=== PATIENT | male | born 1930 | race Caucasian/White ===

== ENCOUNTER 2019-04-28 18:11 | Observation (INO) | payer OTHER, MEDICARE ==
--- NOTE | 2019-04-28 18:41 | ED ---
General Adult HPI - General Chief complaint: Dizziness Stated complaint: elevated BP, dizzy Time Seen by Provider: 04/28/19 18:15 Source: patient, RN notes reviewed, old records reviewed Mode of arrival: ambulatory Limitations: no limitations - History of Present Illness Initial comments: This is an 88-year-old male who presents emergency Department with a long- standing history of smoking. She comes in today stating over the last few days she's been very nauseated and has not vomited. Patient states she's been also a little dizzy and hypertensive. He went to see his primary medical care doctor and they sent him in here to be evaluated. Patient states he has no headache but occasionally he does get a sharp pain is in the last a few seconds and goes away. Patient states his vision is been a little bit blurry when his pressure is elevated. Patient denies any chest pain or difficulty breathing or shortness of breath. Patient denies any fever chills or cough per patient denies abdominal pain. Patient denies any diarrhea. Patient denies any hearing loss or ringing in ears. Patient denies any back pain. Patient denies any recent injury or trauma - Related Data Home Medications Medication Instructions Recorded Confirmed Aspirin [Adult Low Dose Aspirin EC] 81 mg PO DAILY 03/18/16 03/18/16 Lisinopril [Zestril] 10 mg PO BID 03/18/16 03/18/16 Multivitamin [Men's Multi-Vitamin] 1 tab PO DAILY 03/18/16 03/18/16 Omeprazole [PriLOSEC] 20 mg PO DAILY PRN 03/18/16 03/18/16 Tamsulosin [Flomax] 0.4 mg PO DAILY 03/18/16 03/18/16 Previous Rx's Medication Instructions Recorded Atorvastatin Calcium [Lipitor] 10 mg PO HS #30 tab 03/19/16 Nicotine 14Mg/24Hr Patch [Habitrol] 1 patch TRANSDERM DAILY #30 patch 03/19/16 amLODIPine [Norvasc] 5 mg PO DAILY #30 tab 03/19/16 Allergies Allergy/AdvReac Type Severity Reaction Status Date / Time sulfur dioxide Allergy Unknown Verified 04/28/19 18:15 Review of Systems ROS Statement: Those systems with pertinent positive or pertinent negative responses have been documented in the HPI. ROS Other: All systems not noted in ROS Statement are negative. Past Medical History Past Medical History: COPD, GERD/Reflux, Hypertension, Prostate Disorder Additional Past Medical History / Comment(s): BPH History of Any Multi-Drug Resistant Organisms: None Reported Past Surgical History: Heart Catheterization Additional Past Surgical History / Comment(s): R caratid endartectomy, bilateral cataracts removed, cardiac cath-normal. Past Anesthesia/Blood Transfusion Reactions: No Reported Reaction Past Psychological History: No Psychological Hx Reported Smoking Status: Current every day smoker Past Alcohol Use History: None Reported Past Drug Use History: None Reported - Past Family History Mother Family Medical History: Diabetes Mellitus Additional Family Medical History / Comment(s): Mother lived to be 86yrs old. Father Family Medical History: Respiratory Disorder Additional Family Medical History / Comment(s): Father worked in the [employer] and had black lung. He at the age of 78yrs. General Exam - General Exam Comments Initial Comments: GENERAL: Patient is well-developed and well-nourished. Patient is nontoxic and well-hydrated and is in mild distress. ENT: Neck is soft and supple. No significant lymphadenopathy is noted. Oropharynx is clear. Moist mucous membranes. Neck has full range of motion without eliciting any pain. EYES: The sclera were anicteric and conjunctiva were pink and moist. Extraocular movements were intact and pupils were equal round and reactive to light. Eyelids were unremarkable. PULMONARY: Unlabored respirations. Good breath sounds bilaterally. No audible rales rhonchi or wheezing was noted. CARDIOVASCULAR: There is a regular rate and rhythm without any murmurs gallops or rubs. ABDOMEN: Soft and nontender with normal bowel sounds. No palpable organomegaly was noted. There is no palpable pulsatile mass. SKIN: Skin is clear with no lesions or rashes and otherwise unremarkable. NEUROLOGIC: Patient is alert and oriented x3. Cranial nerves II through XII are grossly intact. Motor and sensory are also intact. Normal speech, volume and content. Symmetrical smile. Cerebellar testing finger to nose is normal bilaterally MUSCULOSKELETAL: Normal extremities with adequate strength and full range of motion. No lower extremity swelling or edema. No calf tenderness. LYMPHATICS: No significant lymphadenopathy is noted PSYCHIATRIC: Normal psychiatric evaluation. Limitations: no limitations Course Vital Signs 04/28/19 04/28/19 18:16 19:53 Temperature 97.6 F 97.7 F Pulse Rate 104 H 95 Respiratory 18 18 Rate Blood Pressure 204/83 158/81 O2 Sat by Pulse 97 98 Oximetry Medical Decision Making - Medical Decision Making EKG shows normal sinus rhythm at 100 bpm NE interval is on a 44 Joiner 100 QT interval 352 QTC is 454. Patient's EKG shows no ST segment elevation or depression or T wave abnormalities are noted. Patient continues to be nauseated. I gave the patient Zofran. I gave the patient one dose hydralazine about the blood pressure down. Patient states currently he has no chest pain. Patient states it has been intermittent but doesn't last long when it does come. Patient is not currently dizzy but when he gets up he states it's usually when it starts. [facility] agreed to [facility] the patient admitted the patient wrote admitting orders - Lab Data Result diagrams: 04/28/19 18:57 04/28/19 18:57 Lab Results 04/28/19 04/28/19 04/28/19 Range/Units 18:57 18:57 18:57 WBC 7.8 (3.8-10.6) k/uL RBC 4.30 (4.30-5.90) m/uL Hgb 12.9 L (13.0-17.5) gm/dL Hct 39.5 (39.0-53.0) % MCV 91.9 (80.0-100.0) fL MCH 30.1 (25.0-35.0) pg MCHC 32.8 (31.0-37.0) g/dL RDW 13.2 (11.5-15.5) % Plt Count 275 (150-450) k/uL Neutrophils % 53 % Lymphocytes % 25 % Monocytes % 6 % Eosinophils % 14 % Basophils % 1 % Neutrophils # 4.2 (1.3-7.7) k/uL Lymphocytes # 2.0 (1.0-4.8) k/uL Monocytes # 0.4 (0-1.0) k/uL Eosinophils # 1.1 H (0-0.7) k/uL Basophils # 0.0 (0-0.2) k/uL PT 10.0 (9.0-12.0) sec INR 0.9 (<1.2) APTT 25.6 (22.0-30.0) sec Sodium 142 (137-145) mmol/L Potassium 4.4 (3.5-5.1) mmol/L Chloride 107 (98-107) mmol/L Carbon Dioxide 23 (22-30) mmol/L Anion Gap 12 mmol/L BUN 29 H (9-20) mg/dL Creatinine 2.02 H (0.66-1.25) mg/dL Est GFR (CKD-EPI)AfAm 34 (>60 ml/min/1.73 sqM) Est GFR (CKD-EPI)NonAf 29 (>60 ml/min/1.73 sqM) Glucose 150 H (74-99) mg/dL Calcium 9.7 (8.4-10.2) mg/dL Magnesium 2.2 (1.6-2.3) mg/dL Total Bilirubin 0.4 (0.2-1.3) mg/dL AST 20 (17-59) U/L ALT 13 L (21-72) U/L Alkaline Phosphatase 72 (38-126) U/L Troponin I (0.000-0.034) ng/mL Total Protein 7.8 (6.3-8.2) g/dL Albumin 4.5 (3.5-5.0) g/dL 04/28/19 Range/Units 18:57 WBC (3.8-10.6) k/uL RBC (4.30-5.90) m/uL Hgb (13.0-17.5) gm/dL Hct (39.0-53.0) % MCV (80.0-100.0) fL MCH (25.0-35.0) pg MCHC (31.0-37.0) g/dL RDW (11.5-15.5) % Plt Count (150-450) k/uL Neutrophils % % Lymphocytes % % Monocytes % % Eosinophils % % Basophils % % Neutrophils # (1.3-7.7) k/uL Lymphocytes # (1.0-4.8) k/uL Monocytes # (0-1.0) k/uL Eosinophils # (0-0.7) k/uL Basophils # (0-0.2) k/uL PT (9.0-12.0) sec INR (<1.2) APTT (22.0-30.0) sec Sodium (137-145) mmol/L Potassium (3.5-5.1) mmol/L Chloride (98-107) mmol/L Carbon Dioxide (22-30) mmol/L Anion Gap mmol/L BUN (9-20) mg/dL Creatinine (0.66-1.25) mg/dL Est GFR (CKD-EPI)AfAm (>60 ml/min/1.73 sqM) Est GFR (CKD-EPI)NonAf (>60 ml/min/1.73 sqM) Glucose (74-99) mg/dL Calcium (8.4-10.2) mg/dL Magnesium (1.6-2.3) mg/dL Total Bilirubin (0.2-1.3) mg/dL AST (17-59) U/L ALT (21-72) U/L Alkaline Phosphatase (38-126) U/L Troponin I 0.044 H* (0.000-0.034) ng/mL Total Protein (6.3-8.2) g/dL Albumin (3.5-5.0) g/dL Disposition Clinical Impression: Hypertension, Dizziness, Nausea, Renal insufficiency, Elevated troponin Disposition: ADMITTED IP TO THIS HOSP Referrals: Sachin Groves DO [Primary Care Provider] - 1-2 days Time of Disposition: 20:18
[2019-04-28] MEDS ORDERED: SODIUM CHLORIDE 0.9% 500 ML 500 ML IV STA (18:48)
[2019-04-28] MEDS ORDERED: hydrALAZINE HCL 20 MG/ML 1 ML VIAL IVP STA (18:49)
[2019-04-28 19:05] LABS: Basophils % (A) 1 %; Eosinophils # (A) 1.1 k/uL (0-0.7); Eosinophils % (A) 14 %; HCT 39.5 % (39.0-53.0); HGB 12.9 gm/dL (13.0-17.5); Lymphocytes % (A) 25 %; MCH 30.1 pg (25.0-35.0); MCHC 32.8 g/dL (31.0-37.0); MCV 91.9 fL (80.0-100.0); Mean Platelet Volume 7.8; Monocytes # (A) 0.4 k/uL (0-1.0); Monocytes % (A) 6 %; Neutrophils # (A) 4.2 k/uL (1.3-7.7); Neutrophils % (A) 53 %; Platelet Count 275 k/uL (150-450); RDW 13.2 % (11.5-15.5); WBC 7.8 k/uL (3.8-10.6)
[2019-04-28 19:18] LABS: Albumin 4.5 g/dL (3.5-5.0); Calcium 9.7 mg/dL (8.4-10.2); Magnesium 2.2 mg/dL (1.6-2.3); Potassium 4.4 mmol/L (3.5-5.1); Total Bilirubin 0.4 mg/dL (0.2-1.3); Total Protein 7.8 g/dL (6.3-8.2)
[2019-04-28 19:25] LABS: INR 0.9 (<1.2); Partial Thromboplastin Time 25.6 sec (22.0-30.0)
--- NOTE | 2019-04-28 19:28 | CT ---
EXAMINATION TYPE: CT brain wo con DATE OF EXAM: 04/28/2019 COMPARISON: 03/18/2016 HISTORY: High blood pressure, headache. CT DLP: 1131.4 mGycm Automated exposure control for dose reduction was used. There is cerebral cortical atrophy. There is no mass effect nor midline shift. There is no sign of in tracranial hemorrhage. There is patchy hypodensity in the periventricular white matter. The calvarium is intact. IMPRESSION: Cerebral atrophy and chronic small vessel ischemia. No acute intracranial abnormality. No change.
--- NOTE | 2019-04-28 19:43 | XR ---
EXAMINATION TYPE: XR chest 2V DATE OF EXAM: 04/28/2019 COMPARISON: NONE TECHNIQUE: PA and lateral views submitted. HISTORY: Syncope and weakness, chest FINDINGS: The lungs are clear and there is no pneumothorax, pleural effusion, or focal pneumonia. Hypertrophic and degenerative change of the spine. Mild hyperinflation. IMPRESSION: 1. No definite acute process. Densities overlying the anterior margin the first ribs are likely relat ed to the anterior margins of the first ribs. This could be correlated with an apical lordotic view o f the short-term basis for confirmation..
[2019-04-28] MEDS ORDERED: ONDANSETRON 4 MG/2 ML VIAL IVP STA (20:14)
[2019-04-28] MEDS ORDERED: SODIUM CHLORIDE 0.9% 1,000 ML IV ONE (20:18)
[2019-04-28] MEDS ORDERED: ONDANSETRON 4 MG/2 ML VIAL IVP PRN (20:20)
[2019-04-28] MEDS ORDERED: ACETAMINOPHEN TAB 325 MG TAB PO STA (20:55)
[2019-04-29] MEDS ORDERED: INFLUENZA VACCINE (6 MOS+) 60 MCG/0.5 ML SYRINGE IM ONE (09:56)
--- NOTE | 2019-04-29 12:49 | P.HPIM ---
History of Present Illness Patient is a pleasant 88-year-old the mail came in with complaints of feeling dizzy found to have highly elevated blood pressure patient is also coming of blurry vision as well as chest pain across the chest mild chest pain and nonsp ecific abdominal pain patient is not clearly able to characterize the chest pains and nonradiating brief Pain mild denies any shortness of breath. Patient does smoke smokes about 20 seconds per day has some chronic cough with whitish sputum production not wheezing on exam. Patient was nauseous as well. Denied any vomiting. EKG sinus rhythm with LVH and some flattening of T waves in the inferolateral leads. Patient had minimal stable elevation of troponin of 0.054. Patient has creatinine of 2.02 and do not have his baseline creatinine.Is complaining of leg dizziness when he came in denied any flulike symptoms denied any fever Review of Systems REVIEW OF SYSTEMS: CONSTITUTIONAL: No fever, no malaise, no fatigue. HEENT: No recent visual problems or hearing problems. Denied any sore throat. CARDIOVASCULAR: No , orthopnea, PND, no palpitations, no syncope. PULMONARY: No shortness of breath, no cough, no hemoptysis. GASTROINTESTINAL: No diarrhea, NEUROLOGICAL: No headaches, no weakness, no numbness. HEMATOLOGICAL: Denies any bleeding or petechiae. GENITOURINARY: Denies any burning micturition, frequency, or urgency. MUSCULOSKELETAL/RHEUMATOLOGICAL: Denies any joint pain, swelling, or any muscle pain. ENDOCRINE: Denies any polyuria or polydipsia. The rest of the 14-point review of systems is negative. Past Medical History Past Medical History: COPD, CVA/TIA, GERD/Reflux, Hypertension, Prostate Disorder, Renal Disease Additional Past Medical History / Comment(s): TIAs, BPH, CKD, neuropathy bilateral hands History of Any Multi-Drug Resistant Organisms: None Reported Past Surgical History: Heart Catheterization, Hernia Repair Additional Past Surgical History / Comment(s): R caratid endartectomy, bilateral cataracts removed/lens implants, cardiac cath-normal, R inguinal hernia repair, colonoscopy. Past Anesthesia/Blood Transfusion Reactions: No Reported Reaction Smoking Status: Current every day smoker - Past Family History Mother Family Medical History: Diabetes Mellitus Additional Family Medical History / Comment(s): Mother lived to be 86yrs old. Father Family Medical History: Respiratory Disorder Additional Family Medical History / Comment(s): Father worked in the [employer] and had black lung. He at the age of 78yrs. Medications and Allergies Home Medications Medication Instructions Recorded Confirmed Type Tamsulosin [Flomax] 0.4 mg PO DAILY 03/18/16 04/28/19 History Budesonide/Formoterol Fumarate 2 puff INHALATION RT-BID 04/28/19 04/28/19 History [Symbicort 80-4.5 Mcg Inhaler] hydrALAZINE HCL [Apresoline] 50 mg PO TID 04/28/19 04/28/19 History Allergies Allergy/AdvReac Type Severity Reaction Status Date / Time sulfur dioxide Allergy Unknown Verified 04/28/19 20:27 Physical Exam Vitals: Vital Signs Temp Pulse Pulse Resp BP BP Pulse Ox 04/29/19 12:03 97.5 F L 96 18 190/95 96 04/29/19 10:59 98.5 F 94 16 144/77 98 04/29/19 08:00 98.0 F 94 16 160/80 98 04/29/19 04:00 84 18 136/76 96 04/28/19 22:00 90 18 164/75 97 04/28/19 20:42 98 18 154/76 96 04/28/19 19:53 97.7 F 95 18 158/81 98 04/28/19 18:16 97.6 F 104 H 18 204/83 97 Intake and Output 04/28/19 04/29/19 04/29/19 22:59 06:59 14:59 Other: Weight 63.503 kg 63.503 kg PHYSICAL EXAMINATION: GENERAL: The patient is alert and oriented x3, not in any acute distress. Well developed, well nourished. HEENT: Pupils are round and equally reacting to light. EOMI. No scleral icterus. No conjunctival pallor. Normocephalic, atraumatic. No pharyngeal erythema. No thyromegaly. CARDIOVASCULAR: S1 and S2 present. No murmurs, rubs, or gallops. PULMONARY: Chest is clear to auscultation, no wheezing or crackles. ABDOMEN: Soft, nontender, nondistended, normoactive bowel sounds. No palpable organomegaly. MUSCULOSKELETAL: No joint swelling or deformity. EXTREMITIES: No cyanosis, clubbing, or pedal edema. NEUROLOGICAL: Gross neurological examination did not reveal any focal deficits. SKIN: No rashes. Results CBC & Chem 7: 04/28/19 18:57 04/28/19 18:57 Labs: Abnormal Lab Results - Last 24 Hours (Table) 04/28/19 04/28/19 04/28/19 Range/Units 18:57 18:57 18:57 Hgb 12.9 L (13.0-17.5) gm/dL Eosinophils # 1.1 H (0-0.7) k/uL BUN 29 H (9-20) mg/dL Creatinine 2.02 H (0.66-1.25) mg/dL Glucose 150 H (74-99) mg/dL ALT 13 L (21-72) U/L Troponin I 0.044 H* (0.000-0.034) ng/mL 04/29/19 04/29/19 Range/Units 02:03 07:48 Hgb (13.0-17.5) gm/dL Eosinophils # (0-0.7) k/uL BUN (9-20) mg/dL Creatinine (0.66-1.25) mg/dL Glucose (74-99) mg/dL ALT (21-72) U/L Troponin I 0.054 H* 0.054 H* (0.000-0.034) ng/mL Thrombosis Risk Factor Assmnt - Choose All That Apply Any of the Below Risk Factors Present?: Yes Each Factor Represents 1 point: Abnormal pulmonary function (COPD) Other Risk Factors: Yes Each Risk Factor Represents 3 Points: Age 75 years or older Other congenital or acquired thrombophilia - If yes, enter type in comment: No Thrombosis Risk Factor Assessment Total Risk Factor Score: 4 Thrombosis Risk Factor Assessment Level: Moderate Risk Assessment and Plan Plan: -Elevated blood pressure, possibility of hypertensive emergency on admission presently patient is not in hypertensive emergency patient had blurry vision on admission which is consistent with possible papilledema from high blood pressure. Patient's hydralazine dose will be increased presently not in hypertensive emergency. Patient although also had some nonspecific chest pain atypical chest pain. Patient is a poor historian because of his hearing problems. His chest pain has some pleuritic competent because of which I ordered a d-dimer. If it's above 0.9 will obtain a CAT scan of the chest rule out pulmonary embolism -Abdominal pain and nausea may be related to gastroesophageal reflux disease patient was started on Protonix -Troponin elevation appears to be secondary to elevated blood pressure and chronic kidney disease. -Renal dysfunction appears to be mostly chronic kidney disease from BUN/creatinine ratio although do not have baseline creatinine, patient will be continued on IV fluids will recheck the kidney function tomorrow. 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 EKG is consistent with uncontrolled hypertension for long time. -COPD without any acute exacerbation patient will be resumed on his inhalers -Continue nicotine use: Counseling was provided
[2019-04-29] MEDS: NICOTINE 21MG/24HR PATCH TRANSDERM SCH (13:29)
[2019-04-29] MEDS: PANTOPRAZOLE 40 MG/10 ML VIAL IVP SCH (13:30)
--- NOTE | 2019-04-29 15:55 | NM ---
EXAMINATION TYPE: NM pul vent and perfuse DATE OF EXAM: 04/29/2019 COMPARISON: Chest x-ray 04/28/2019 HISTORY: Shortness of breath TECHNIQUE: Utilizing inhalation of 33.9 mCi Tc 99m DTPA aerosol and intravenous injection of 5.12 mC i of Tc 99m MAA, ventilation and perfusion images are acquired post injection in multiple projections . FINDINGS: There is heterogeneous uptake seen on ventilation imaging with clumping of radiotracer centrally. Thi s results in markedly limited exam. Findings are likely on the basis of COPD which is compatible with the chest x-ray. There are perfusion defects involving both lungs along the periphery which appear t o be matched. IMPRESSION: 1. Numerous matched defects suggestive of intermediate probability for pulmonary embolism.
[2019-04-29] MEDS: hydrALAZINE HCL 50 MG TAB PO SCH ×2 (18:19→20:13)
[2019-04-29] MEDS: SYMBICORT 80-4.5 MCG INHALER INHALATION SCH (19:45)
[2019-04-30 07:03] LABS: Calcium 9.1 mg/dL (8.4-10.2); Potassium 4.4 mmol/L (3.5-5.1)
[2019-04-30] MEDS: SYMBICORT 80-4.5 MCG INHALER INHALATION SCH (07:57)
[2019-04-30 08:07] VITALS: RESP 18
[2019-04-30] MEDS: NICOTINE 21MG/24HR PATCH TRANSDERM SCH (08:08)
[2019-04-30] MEDS: hydrALAZINE HCL 50 MG TAB PO SCH (08:08)
[2019-04-30] MEDS: PANTOPRAZOLE 40 MG/10 ML VIAL IVP SCH (08:08)
[2019-04-30] MEDS ORDERED: TAMSULOSIN 0.4 MG CAP.ER.24H PO SCH (09:00)
[2019-04-30 12:00] VITALS: BP 140/80; PULSE 94; TEMP 97.8
--- NOTE | 2019-04-30 12:14 | CONS ---
CONSULTATION PULMONARY/CRITICAL CARE CONSULTATION DATE OF CONSULTATION: This is an 88-year-old male who presents to the emergency department with complaints of longstanding tobacco use. He likely has some underlying COPD, although he has never seen a lung doctor. The patient apparently sees a family doctor out in [place], [place]. In the emergency room, he was complaining of a few days worth of nausea. No vomiting. He has also had lightheadedness and dizziness. In addition, his blood pressure was elevated. He denied any shortness of breath, but he did have a touch of chest pain. The pain was very nonspecific throughout his right and left chest. He thought it might relate to some acid reflux disease or heartburn. He really denies any shortness of breath per se. The pain was described as being sharp. Anyway, he came into the emergency room to be evaluated for that and was admitted to the hospital. He apparently had a V/Q scan which was intermediate probability with matched defects consistent with underlying COPD. We were consulted for the possibility of pulmonary embolism. Again, he is not currently having any chest pain. His chest pain was really nonspecific and he denied any shortness of breath as I mentioned. He continues to smoke cigarettes. He has been smoking for 71 years. He is originally from [place]. He now lives in [place], [place]. He is feeling well. His scans and x-rays and labs are all reviewed. MEDICATIONS: Home medications include aspirin, lisinopril, multivitamins, Prilosec, Flomax, Lipitor, nicotine patch, and amlodipine. ALLERGIES: SULFUR DIOXIDE. MEDICAL HISTORY: Medical history includes probable COPD, GERD, hypertension, BPH, hyperlipidemia, ongoing tobacco use with nicotine addiction, and some other minor medical problems. SURGICAL HISTORY: Surgical history includes heart catheterization, bilateral cataract surgery, right carotid endarterectomy, and a cardiac catheterization that was apparently normal. SOCIAL HISTORY: Positive for ongoing tobacco use. He may be smoking more than a pack a day for 71 years. Has no desire to quit. He denies any alcohol use or illicit drug use. FAMILY HISTORY: Consistent with a mother with diabetes mellitus and a father with black lung from working in the [employer]. REVIEW OF SYSTEMS: CONSTITUTIONAL: Negative. NEUROLOGIC: Dizziness. HEENT: Negative. CARDIOVASCULAR: Mild chest pain. PULMONARY: Negative. GI: Nausea without vomiting. : Negative. RHEUMATOLOGIC: Negative. IMMUNOLOGIC: Negative. ENDOCRINOLOGIC: Negative. DERMATOLOGIC: Negative. PHYSICAL EXAMINATION: VITAL SIGNS: Current vital signs include temperature 97.5, heart rate 89, respiratory rate 16, blood pressure 121/84, mean 96 and room-air saturation 95%. GENERAL: Appears in no acute distress. HEENT: Examination is grossly unremarkable. Mucous membranes are moist. No oral lesions. NECK: Supple. Full range of motion. No adenopathy. Neck veins are flat. CARDIOVASCULAR: Examination reveals regular rhythm and rate. S1, S2 normal. LUNGS: Are relatively clear. No wheezes or rhonchi. Breath sounds are diminished. ABDOMEN: Soft. Bowel sounds are heard. EXTREMITIES: Are intact. No cyanosis, clubbing, or edema. SKIN: Without rash. NEUROLOGIC: Examination is brief but nonfocal. LABS: Labs are reviewed. White count 7.8, hemoglobin 12.9, hematocrit 39.5, platelet count 275,000. PT, INR, PTT normal. D-dimer 0.98. Sodium 141, potassium 4.4, chloride 111, CO2 is 22. Anion gap is 8. BUN and creatinine were 23 and 2.05. His troponins were 0.044, 0.054 and 0.054. The rest of his labs look okay. The patient had a brain CT which showed no acute abnormality. Chest x-ray, which showed no acute process. An EKG which revealed normal sinus rhythm. A pulmonary perfusion study which showed numerous matched defect suggestive of intermediate probability for pulmonary embolism and likely related to chronic obstructive pulmonary disease. CURRENT MEDICATIONS: Current medications are reviewed. He is currently on Symbicort, Apresoline, nicotine patch, Zofran, Protonix, saline IV, and Flomax. ASSESSMENT: 1. No clear-cut evidence of pulmonary embolism based on the patient's clinical exam, scans and history. 2. Probable chronic obstructive pulmonary disease, from longstanding tobacco use of 71 years at more than 1 pack a day. 3. History of benign prostatic hypertrophy. 4. History of hypertension. 5. History of acid reflux disease. 6. History of hyperlipidemia. PLAN: I do not believe that the patient has had a pulmonary embolism. I do not believe any additional studies are warranted at this time. The patient feels well. Not having any shortness of breath. We encourage him to stop smoking. He likely will not. We will see as needed. I would be happy to follow up with him in the office if he would be willing to come there and have a pulmonary function test for further delineation and evaluation of chronic lung disease. Additional recommendations and suggestions are forthcoming. MMTYRAL / IJN: [id number] /
--- NOTE | 2019-04-30 15:53 | P.DS ---
Providers Date of admission: 04/28/19 20:18 Expected date of discharge: 04/30/19 Attending physician: Jerica Valadez Consults: 04/29/19 18:16 Consult Physician Routine Consulting Provider: Haim Burrows Consult Reason/Comments: elevated d dimer, matched defects on VQ scan Do you want consulting provider notified?: Yes, Notify in am Primary care physician: [facility] Course: 88-year-old the mail came in with complaints of feeling dizzy found to have highly elevated blood pressure patient is also coming of blurry vision as well as chest pain across the chest mild chest pain and nonspecific abdominal pain patient is not clearly able to characterize the chest pains and nonradiating brief Pain mild denies any shortness of breath. Patient does smoke smokes about 20 seconds per day has some chronic cough with whitish sputum production not wheezing on exam. Patient was nauseous as well. Denied any vomiting. EKG sinus rhythm with LVH Patient was admitted to the hospital and hydralazine was increased to 75 mg 3 times a day; patient's chest and was deemed atypical and felt more pleuritic 5H d-dimer was ordered which came back elevated at 0.9; CTA was recommended couldn't be done because of elevated renal function; pulmonary was consulted and they did not recommend any further treatment or evaluation; patient's blood pressure remained stable and he was discharged home with increased dose of hydralazine and follow-up with PCP Plan - Discharge Summary Discharge Rx Participant: No New Discharge Prescriptions: New hydrALAZINE HCL [Apresoline] 75 mg PO TID 30 Days #90 tab Continue Tamsulosin [Flomax] 0.4 mg PO DAILY Budesonide/Formoterol Fumarate [Symbicort 80-4.5 Mcg Inhaler] 2 puff INHALATION RT-BID Discontinued hydrALAZINE HCL [Apresoline] 50 mg PO TID Discharge Medication List Tamsulosin [Flomax] 0.4 mg PO DAILY 03/18/16 [History] Budesonide/Formoterol Fumarate [Symbicort 80-4.5 Mcg Inhaler] 2 puff INHALATION RT-BID 04/28/19 [History] hydrALAZINE HCL [Apresoline] 75 mg PO TID 30 Days #90 tab 04/30/19 [Rx] Follow up Appointment(s)/Referral(s): Haim Burrows DO [Doctor of Osteopathic Medicine] - 4 Weeks (Forms [employer].) Sachin Groves DO [Primary Care Provider] - 3 Days (Office closed, please call for a follow up appointment during normal business hours. ) Patient Instructions/Handouts: How to Stop Smoking (DC), COPD (Chronic Obstructive Pulmonary Disease) (DC) Discharge Disposition: HOME SELF-CARE
[2019-05-01] MEDS ORDERED: PANTOPRAZOLE 40 MG TABLET PO SCH (07:30)
== END 2019-04-30 16:35 | disposition home or self-care (01) ==
LOC: EC 18:11 → 3SCARD 20:18
PROVIDERS: ADMIT Hospitalist; ATTEND Hospitalist
DX: I12.9 Hypertensive chronic kidney disease with stage 1 through stage 4 chronic kidney disease, or unspecified chronic kidney disease (principal); N18.9 Chronic kidney disease, unspecified; R10.9 Unspecified abdominal pain; R11.0 Nausea; R42 Dizziness and giddiness; R07.89 Other chest pain; J44.9 Chronic obstructive pulmonary disease, unspecified; K21.9 Gastro-esophageal reflux disease without esophagitis; H91.90 Unspecified hearing loss, unspecified ear; N40.0 Benign prostatic hyperplasia without lower urinary tract symptoms; E78.5 Hyperlipidemia, unspecified; G31.9 Degenerative disease of nervous system, unspecified; I67.82 Cerebral ischemia; F17.210 Nicotine dependence, cigarettes, uncomplicated; Z79.82 Long term (current) use of aspirin; Z79.899 Other long term (current) drug therapy; Z79.51 Long term (current) use of inhaled steroids; Z88.2 Allergy status to sulfonamides; Z98.890 Other specified postprocedural states; Z98.42 Cataract extraction status, left eye; Z98.41 Cataract extraction status, right eye; Z83.3 Family history of diabetes mellitus; Z82.5 Family history of asthma and other chronic lower respiratory diseases
CPT/HCPCS: 96376; 96361 ×3; 96375 ×2; 96374; 99285; 36415; 94640 ×2; 93005; 85379; 80053; 80048; 83735; 84484 ×2; 85025; 85610; 85730; 71046; 70450; 78582; G0378 ×3; A9540; A9567; S4990 ×2; J0360; J2405; C9113 ×2

== ENCOUNTER → 2020-01-26 | Outpatient (CLI) | payer OTHER ==
--- NOTE | 2020-01-27 07:17 | US ---
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 Prior right carotid endarterectomy approximately 5 years ago; smoker x 71 years per patient; elevated Left PSV on prior US here. EXAM MEASUREMENTS: RIGHT: Peak Systolic Velocity (PSV) cm/sec ----- Right CCA: 72.9 ----- Right ICA: 75.6 ----- Right ECA: 98.6 ICA/CCA ratio: 1.0 RIGHT: End Diastole cm/sec ----- Right CCA: 11.0 ----- Right ICA: 22.3 ----- Right ECA: 0.0 LEFT: Peak Systolic Velocity (PSV) cm/sec ----- Left CCA: 84.1 ----- Left ICA: 160.9 ----- Left ECA: 130.2 ICA/CCA ratio: 1.9 LEFT: End Diastole cm/sec ----- Left CCA: 19.3 ----- Left ICA: 43.0 ----- Left ECA: 0.0 VERTEBRALS (direction of flow): Right Vertebral: Antegrade Left Vertebral: Antegrade Rhythm: Normal Irregular, mixed and calcified wall changes seen at bilateral carotid bifurcation with abnormally sudarshan vated PSV in Left ICA and Left ECA. Patient stated has palpable at superior right carotid endarterec sofía surgical incision site with US images here showing dilated bulb and wall plaque. IMPRESSION: Elevated left ICA PSV with the carotid endarterectomy changes. No hemodynamically significant stenosi s. Criteria for Assigning % of Stenosis / Diameter reduction (Estimation based on the indirect measurements of the internal carotid artery velocities (ICA PSV). 1. Normal (no stenosis)=ICA PSV < 125 cm/s: ratio < 2.0: ICA EDV<40 cm/s. 2. Less than 50% stenosis=ICA PSV < 125 cm/s: ratio < 2.0: ICA EDV<40 cm/s. 3. 50 to 69% stenosis=ICA PSV of 125 to 230 cm/s: ration 2.0 ? 4.0: ICA EDV 40-100 cm/s. 4. Greater than 70% stenosis to near occlusion= ICA PSV > 230 cm/s: ratio > 4.0: ICA EDV > 100 cm/s. 5. Near occlusion= ICA PSV velocities may be low or undetectable: variable ratio and ICA EDV. 6. Total occlusion=unable to detect flow.
== END | disposition home or self-care (01) ==
LOC: RADUSWWP 16:39
PROVIDERS: ATTEND Internal Medicine
DX: I65.29 Occlusion and stenosis of unspecified carotid artery (principal); Z98.890 Other specified postprocedural states
CPT/HCPCS: 93880

== ENCOUNTER 2020-07-12 11:42 | Inpatient (IN) | payer OTHER, MEDICARE ==
--- NOTE | 2020-07-12 12:23 | ED ---
General Adult HPI - General Chief complaint: Shortness of Breath Stated complaint: SOB Time Seen by Provider: 07/12/20 11:55 Source: patient, family, RN notes reviewed, old records reviewed Mode of arrival: wheelchair Limitations: no limitations - History of Present Illness Initial comments: This is an 89-year-old male who presents emergency department with past medical history significant for COPD. Patient states he does continue to smoke a little but not much. Patient states she also has high blood pressure. Patient states she's noted recently has been getting a little bit higher when he has had taken. Patient states he did take his blood pressure medicines today. Patient states over the last 2 months she had difficulty breathing with any exertion it's much worse he states he was standing for a period of time makes him very short of douglas ath. Patient denies any chest pain or palpitations. Patient states he went to see his primary medical care doctor they did an EKG and wanted him to be evaluated at the hospital. Patient denies any current abdominal pain or nausea vomiting diarrhea. Patient denies any recent fever chills or cough per patient denies any leg swelling or calf tenderness. Patient states he has some overall fatigue which seems to be getting worse over the last couple of months. - Related Data Home Medications Medication Instructions Recorded Confirmed Tamsulosin [Flomax] 0.4 mg PO DAILY 03/18/16 07/12/20 Omeprazole 20 mg PO DAILY PRN 07/12/20 07/12/20 Tiotropium 2.5 Mcg/Puff [Spiriva 1 puff INHALATION RT-BID 07/12/20 07/12/20 Respimat 2.5 Mcg] hydrALAZINE HCL 25 mg PO DAILY 07/12/20 07/12/20 hydrALAZINE HCL 25 mg PO DAILY PRN 07/12/20 07/12/20 Allergies Allergy/AdvReac Type Severity Reaction Status Date / Time sulfur dioxide Allergy Unknown Verified 07/12/20 14:24 Review of Systems ROS Statement: Those systems with pertinent positive or pertinent negative responses have been documented in the HPI. ROS Other: All systems not noted in ROS Statement are negative. Past Medical History Past Medical History: COPD, CVA/TIA, GERD/Reflux, Hypertension, Prostate Disorder, Renal Disease Additional Past Medical History / Comment(s): TIAs, BPH, CKD, neuropathy bilateral hands History of Any Multi-Drug Resistant Organisms: None Reported Past Surgical History: Heart Catheterization, Hernia Repair Additional Past Surgical History / Comment(s): R caratid endartectomy, bilateral cataracts removed/lens implants, cardiac cath-normal, R inguinal hernia repair, colonoscopy. Past Anesthesia/Blood Transfusion Reactions: No Reported Reaction Past Psychological History: No Psychological Hx Reported Smoking Status: Current every day smoker Past Alcohol Use History: None Reported Past Drug Use History: None Reported - Past Family History Mother Family Medical History: Diabetes Mellitus Additional Family Medical History / Comment(s): Mother lived to be 86yrs old. Father Family Medical History: Respiratory Disorder Additional Family Medical History / Comment(s): Father worked in the [employer] and had black lung. He at the age of 78yrs. General Exam - General Exam Comments Initial Comments: GENERAL: Patient is well-developed and well-nourished. Patient is nontoxic and well-hy drated and is in mild distress. ENT: Neck is soft and supple. No significant lymphadenopathy is noted. Oropharynx is clear. Moist mucous membranes. Neck has full range of motion without eliciting any pain. EYES: The sclera were anicteric and conjunctiva were pink and moist. Extraocular move ments were intact and pupils were equal round and reactive to light. Eyelids were unremarkable. PULMONARY: Unlabored respirations. Good breath sounds bilaterally. No audible rales rhonchi or wheezing was noted. CARDIOVASCULAR: Patient is tachycardic at about 100 beats a minute with an occasional extrasystole ABDOMEN: Soft and nontender with normal bowel sounds. No palpable organomegaly was noted. There is no palpable pulsatile mass. SKIN: Skin is clear with no lesions or rashes and otherwise unremarkable. NEUROLOGIC: Patient is alert and oriented x3. Cranial nerves II through XII are grossly intact. Motor and sensory are also intact. Normal speech, volume and content. Symmetrical smile. MUSCULOSKELETAL: Normal extremities with adequate strength and full range of motion. No lower extremity swelling or edema. No calf tenderness. LYMPHATICS: No significant lymphadenopathy is noted PSYCHIATRIC: Normal psychiatric evaluation. Limitations: no limitations Course Vital Signs 07/12/20 07/12/20 07/12/20 11:52 12:20 13:00 Temperature 98.2 F Pulse Rate 97 97 84 Respiratory 18 20 22 Rate Blood Pressure 165/105 188/101 157/98 O2 Sat by Pulse 97 100 100 Oximetry 07/12/20 07/12/20 07/12/20 13:06 14:00 14:24 Temperature Pulse Rate 88 90 80 Respiratory 19 16 Rate Blood Pressure 174/89 174/89 O2 Sat by Pulse 100 Oximetry 07/12/20 14:32 Temperature Pulse Rate 79 Respiratory 18 Rate Blood Pressure O2 Sat by Pulse Oximetry Medical Decision Making - Medical Decision Making EKG shows sinus tachycardia with occasional PVCs at 105 bpm ND interval is 136 QRS is 108 QT interval is 342 QTC is 452. Patient's EKG shows T-wave inversions in inferior leads II, III, and F aVF as well as in V6. Chest x-ray shows no acute abnormality. I did give the patient a breathing treatment. Patient's troponin was also elevated. BNP was 10,000. Patient has not followed up with a laborer [employer] or inspector publications. [facility] admitted the patient I consulted both cardiology and pulmonary. - Lab Data Result diagrams: 07/12/20 12:28 07/12/20 12:28 Lab Results 07/12/20 07/12/20 07/12/20 Range/Units 12:28 12:28 12:28 WBC 9.4 (3.8-10.6) k/uL RBC 3.92 L (4.30-5.90) m/uL Hgb 12.1 L (13.0-17.5) gm/dL Hct 36.1 L (39.0-53.0) % MCV 92.0 (80.0-100.0) fL MCH 30.8 (25.0-35.0) pg MCHC 33.5 (31.0-37.0) g/dL RDW 13.2 (11.5-15.5) % Plt Count 249 (150-450) k/uL MPV 8.2 Neutrophils % 47 % Lymphocytes % 23 % Monocytes % 8 % Eosinophils % 21 % Basophils % 1 % Neutrophils # 4.4 (1.3-7.7) k/uL Lymphocytes # 2.1 (1.0-4.8) k/uL Monocytes # 0.7 (0-1.0) k/uL Eosinophils # 2.0 H (0-0.7) k/uL Basophils # 0.1 (0-0.2) k/uL Manual Slide Review Performed PT 10.0 (9.0-12.0) sec INR 0.9 (<1.2) APTT 25.1 (22.0-30.0) sec D-Dimer 0.73 H (<0.60) mg/L FEU Sodium 139 (137-145) mmol/L Potassium 4.5 (3.5-5.1) mmol/L Chloride 105 (98-107) mmol/L Carbon Dioxide 25 (22-30) mmol/L Anion Gap 9 mmol/L BUN 29 H (9-20) mg/dL Creatinine 1.98 H (0.66-1.25) mg/dL Est GFR (CKD-EPI)AfAm 34 (>60 ml/min/1.73 sqM) Est GFR (CKD-EPI)NonAf 29 (>60 ml/min/1.73 sqM) Glucose 242 H (74-99) mg/dL Plasma Lactic Acid Fran (0.7-2.0) mmol/L Calcium 9.6 (8.4-10.2) mg/dL Magnesium 2.1 (1.6-2.3) mg/dL Total Bilirubin 0.4 (0.2-1.3) mg/dL AST 15 L (17-59) U/L ALT 12 (4-49) U/L Alkaline Phosphatase 76 (38-126) U/L Troponin I (0.000-0.034) ng/mL NT-Pro-B Natriuret Pep pg/mL Total Protein 7.0 (6.3-8.2) g/dL Albumin 3.9 (3.5-5.0) g/dL 07/12/20 07/12/20 07/12/20 Range/Units 12:28 12:28 12:28 WBC (3.8-10.6) k/uL RBC (4.30-5.90) m/uL Hgb (13.0-17.5) gm/dL Hct (39.0-53.0) % MCV (80.0-100.0) fL MCH (25.0-35.0) pg MCHC (31.0-37.0) g/dL RDW (11.5-15.5) % Plt Count (150-450) k/uL MPV Neutrophils % % Lymphocytes % % Monocytes % % Eosinophils % % Basophils % % Neutrophils # (1.3-7.7) k/uL Lymphocytes # (1.0-4.8) k/uL Monocytes # (0-1.0) k/uL Eosinophils # (0-0.7) k/uL Basophils # (0-0.2) k/uL Manual Slide Review PT (9.0-12.0) sec INR (<1.2) APTT (22.0-30.0) sec D-Dimer (<0.60) mg/L FEU Sodium (137-145) mmol/L Potassium (3.5-5.1) mmol/L Chloride (98-107) mmol/L Carbon Dioxide (22-30) mmol/L Anion Gap mmol/L BUN (9-20) mg/dL Creatinine (0.66-1.25) mg/dL Est GFR (CKD-EPI)AfAm (>60 ml/min/1.73 sqM) Est GFR (CKD-EPI)NonAf (>60 ml/min/1.73 sqM) Glucose (74-99) mg/dL Plasma Lactic Acid Fran 2.2 H* (0.7-2.0) mmol/L Calcium (8.4-10.2) mg/dL Magnesium (1.6-2.3) mg/dL Total Bilirubin (0.2-1.3) mg/dL AST (17-59) U/L ALT (4-49) U/L Alkaline Phosphatase (38-126) U/L Troponin I 0.085 H* (0.000-0.034) ng/mL NT-Pro-B Natriuret Pep 02947 pg/mL Total Protein (6.3-8.2) g/dL Albumin (3.5-5.0) g/dL Disposition Clinical Impression: COPD (chronic obstructive pulmonary disease), Elevated troponin, Acute electr ocardiogram changes Disposition: ADMITTED IP TO THIS HOSP Referrals: [facility],Clinic [Primary Care Provider] - 1-2 days Time of Disposition: 14:33
[2020-07-12 12:52] LABS: Basophils # (A) 0.1 k/uL (0-0.2); Basophils % (A) 1 %; HCT 36.1 % (39.0-53.0); HGB 12.1 gm/dL (13.0-17.5); Lymphocytes # (A) 2.1 k/uL (1.0-4.8); Lymphocytes % (A) 23 %; MCH 30.8 pg (25.0-35.0); MCHC 33.5 g/dL (31.0-37.0); Mean Platelet Volume 8.2; Monocytes # (A) 0.7 k/uL (0-1.0); Monocytes % (A) 8 %; Neutrophils # (A) 4.4 k/uL (1.3-7.7); Neutrophils % (A) 47 %; Platelet Count 249 k/uL (150-450); RBC 3.92 m/uL (4.30-5.90); RDW 13.2 % (11.5-15.5); WBC 9.4 k/uL (3.8-10.6)
--- NOTE | 2020-07-12 12:54 | XR ---
EXAMINATION TYPE: XR chest 2V DATE OF EXAM: 07/12/2020 COMPARISON: Chest x-ray 04/28/2019 HISTORY: Difficulty breathing TECHNIQUE: Frontal and lateral views of the chest are obtained. FINDINGS: There is no focal air space opacity, pleural effusion, or pneumothorax seen. The cardiac silhouette size is within normal limits. Aorta is dense. There are overlying leads and artifacts. Th e osseous structures are intact. There are coronary artery calcifications. IMPRESSION: No acute cardiopulmonary process.
[2020-07-12 13:06] LABS: Albumin 3.9 g/dL (3.5-5.0); Calcium 9.6 mg/dL (8.4-10.2); Magnesium 2.1 mg/dL (1.6-2.3); Potassium 4.5 mmol/L (3.5-5.1); Total Bilirubin 0.4 mg/dL (0.2-1.3)
[2020-07-12 13:07] LABS: Eosinophils % (A) 21 %; INR 0.9 (<1.2); Partial Thromboplastin Time 25.1 sec (22.0-30.0)
[2020-07-12 13:10] LABS: D-Dimer 0.73 mg/L FEU (<0.60)
[2020-07-12] MEDS ORDERED: IPRATROPIUM-ALBUTEROL 3 ML NEB INHALATION STA (14:07)
[2020-07-12] MEDS ORDERED: NITROGLYCERIN SL TABS 0.4 MG TAB SUBLINGUAL PRN (14:34)
[2020-07-12] MEDS ORDERED: methylPREDNISolone SOD SUCCI 125 MG/2 ML VIAL IV STA (14:37)
[2020-07-12] MEDS ORDERED: hydrALAZINE HCL 25 MG TAB PO STA (15:31)
--- NOTE | 2020-07-12 15:52 | P.CRDCN ---
History of Present Illness History of present illness: HISTORY OF PRESENTING ILLNESS This is a pleasant 89-year-old male past medical history significant for hypertension, TIA, chronic kidney disease, peripheral vascular disease status post right carotid endarterectomy, COPD and former nicotine dependence. He states he quit smoking 2 months ago. He does not follow in the office with a tag maker. We have been asked to see in consultation for EKG changes and troponin elevation. He was at the [facility] yesterday for routine visit and had an EKG performed. According to the patient he was told his EKG was abnormal and they recommended coming to the emergency department. However he decided not to come to the hospital and went home. When he told his daughter with a told them she brought him to the hospital today for evaluation. He is seen and examined sitting up in bed in no acute distress. He states he has noti arnaldo worsening shortness of breath with exertion over the previous 6 months. According to his daughter he becomes extremely fatigued with any activity. He also describes having episodes of frequent nausea and vomiting associated with pain and burning across his upper abdomen. He also describes some intermittent episodes of sharp pain in the left precordial region that happen mostly at rest. The patient states that he struggles with his blood pressure at home. He is supposed to be taking hydralazine 3 times a day but he states it drops his blood pressure so recently has been only taking it daily. DIAGNOSTICS EKG reveals sinus tachycardia with PVCs, incomplete left bundle branch block, T- wave inversions in the inferior lateral leads. This is a change from previous EKG obtained in 2019. Telemetry tracings indicate sinus mechanism with frequent PVCs. Chest xray negative for an acute cardiopulmonary process. Laboratory reviewed, WBC 9.4, hemoglobin 12.1, platelets 249, d-dimer 0.73, s odium 139, potassium 4.5, creatinine 1.98, lactic acid 2.2, magnesium 2.1, troponin 0.0 85, and T proBNP 10,900. Current cardiac medications include hydralazine 25 mg daily. Most recent echocardiogram obtained in 2016 reveals preserved LV systolic function with ejection fraction 55-60%. REVIEW OF SYSTEMS At the time of my exam: CONSTITUTIONAL: Denies fever or chills. CARDIOVASCULAR: Denies chest pain, shortness of breath, orthopnea, PND or palpitations. RESPIRATORY: Denies cough. GASTROINTESTINAL: Denies abdominal pain, diarrhea, constipation, nausea or vomiting. MUSCULOSKELETAL: Denies myalgias. NEUROLOGIC: Denies numbness, tingling, headacbe or weakness. ENDOCRINE: Denies fatigue, weight change, polydipsia or polyurina. GENITOURINARY: Denies burning, hematuria or urgency with micturation. HEMATOLOGIC: Denies history of anemia or bleeding. PHYSICAL EXAMINATION Blood pressure 184/110 heart rate 89 afebrile and maintaining oxygen saturation on nasal cannula. CONSTITUTIONAL: No apparent distress. HEENT: Head is normocephalic. Pupils are equal, round. Sclerae anicteric. Mucous membranes of the mouth are moist. No JVD. No carotid bruit. CHEST EXAMINATION: Significantly diminished bilaterally with expiratory wheezes. No rhonchi or rales. No chest wall tenderness is noted on palpation or with deep breathing. HEART EXAMINATION: Irregular rate and rhythm. S1, S2 heard. No murmurs, gallops or rub. ABDOMEN: Soft, nontender. Positive bowel sounds. EXTREMITIES: 1+ peripheral pulses, no lower extremity edema and no calf tenderness. NEUROLOGIC EXAMINATION: Patient is awake, alert and oriented x3. ASSESSMENT Dyspnea on exertion Hypertension, uncontrolled Chronic kidney disease Lactic acidosis Peripheral vascular disease status post right carotid endarterectomy COPD History of TIA Former nicotine dependence, quit 2 months ago PLAN Continue to obtain serial cardiac enzymes to rule out an acute event. Echocardiogram has been obtained and will be reviewed. Initiate hydralazine 25 mg twice a day, Lopressor 25 mg twice a day, atorvastatin 40 mg daily and aspirin 81 mg daily. Unclear if exertional dyspnea is related to COPD or heart condition at this point. Clinically he is euvolemic and not in heart failure. It is likely due to advanced COPD as he has almost no air exchange on exam. Lengthy discussion had with the patient and his family member at the bedside. Given his renal function and advanced age we recommend optimizing his medical therapy at this time. Further recommendations to follow based on clinical course. Thank you kindly for this consultation. Nurse Practitioner note has been reviewed, I agree with a documented findings and plan of care. Patient was seen and examined. Past Medical History Past Medical History: COPD, CVA/TIA, GERD/Reflux, Hypertension, Prostate Disorder, Renal Disease Additional Past Medical History / Comment(s): TIAs, BPH, CKD, neuropathy bilateral hands History of Any Multi-Drug Resistant Organisms: None Reported Past Surgical History: Heart Catheterization, Hernia Repair Additional Past Surgical History / Comment(s): R caratid endartectomy, bilateral cataracts removed/lens implants, cardiac cath-normal, R inguinal hernia repair, colonoscopy. Past Anesthesia/Blood Transfusion Reactions: No Reported Reaction Past Psychological History: No Psychological Hx Reported Smoking Status: Current every day smoker Past Alcohol Use History: None Reported Past Drug Use History: None Reported - Past Family History Mother Family Medical History: Diabetes Mellitus Additional Family Medical History / Comment(s): Mother lived to be 86yrs old. Father Family Medical History: Respiratory Disorder Additional Family Medical History / Comment(s): Father worked in the [employer] and had black lung. He at the age of 78yrs. Medications and Allergies Home Medications Medication Instructions Recorded Confirmed Type Tamsulosin [Flomax] 0.4 mg PO DAILY 03/18/16 07/12/20 History Metoprolol Tartrate [Lopressor] 25 mg PO DIRECTED 07/12/20 07/12/20 History Omeprazole 20 mg PO DAILY PRN 07/12/20 07/12/20 History Tiotropium 2.5 Mcg/Puff [Spiriva 1 puff INHALATION RT-BID 07/12/20 07/12/20 History Respimat 2.5 Mcg] hydrALAZINE HCL 25 mg PO DAILY 07/12/20 07/12/20 History hydrALAZINE HCL 25 mg PO DAILY PRN 07/12/20 07/12/20 History Allergies Allergy/AdvReac Type Severity Reaction Status Date / Time sulfur dioxide Allergy Unknown Verified 07/12/20 14:24 Physical Exam Vitals: Vital Signs Temp Pulse Resp BP Pulse Ox 07/12/20 15:26 97.9 F 89 16 184/110 99 07/12/20 14:32 79 18 07/12/20 14:24 80 16 07/12/20 14:00 90 19 174/89 100 07/12/20 13:06 88 174/89 07/12/20 13:00 84 22 157/98 100 07/12/20 12:20 97 20 188/101 100 07/12/20 11:52 98.2 F 97 18 165/105 97 Intake and Output 07/12/20 07/12/20 07/12/20 06:59 14:59 22:59 Other: Weight 70.307 kg Results 07/12/20 12:28 07/12/20 12:28 Cardiac Enzymes 07/12/20 07/12/20 Range/Units 12:28 12:28 AST 15 L (17-59) U/L Troponin I 0.085 H* (0.000-0.034) ng/mL Coagulation 07/12/20 Range/Units 12: PT 10.0 (9.0-12.0) sec APTT 25.1 (22.0-30.0) sec CBC 07/12/20 Range/Units 12:28 WBC 9.4 (3.8-10.6) k/uL RBC 3.92 L (4.30-5.90) m/uL Hgb 12.1 L (13.0-17.5) gm/dL Hct 36.1 L (39.0-53.0) % Plt Count 249 (150-450) k/uL Comprehensive Metabolic Panel 07/12/20 Range/Units 12:28 Sodium 139 (137-145) mmol/L Potassium 4.5 (3.5-5.1) mmol/L Chloride 105 (98-107) mmol/L Carbon Dioxide 25 (22-30) mmol/L BUN 29 H (9-20) mg/dL Creatinine 1.98 H (0.66-1.25) mg/dL Glucose 242 H (74-99) mg/dL Calcium 9.6 (8.4-10.2) mg/dL AST 15 L (17-59) U/L ALT 12 (4-49) U/L Alkaline Phosphatase 76 (38-126) U/L Total Protein 7.0 (6.3-8.2) g/dL Albumin 3.9 (3.5-5.0) g/dL Current Medications Generic Name Dose Route Start Last Admin Trade Name Freq PRN Reason Stop Dose Admin Albuterol/Ipratropium 3 ml 07/12/20 14:36 Ipratropium-Albuterol 3 Ml Neb INHALATION RT-QID PRN Shortness Of Breath Or Wheezing Aspirin 325 mg 07/13/20 09:00 Aspirin 325 Mg Tab PO DAILY [facility] Methylprednisolone Sodium Succinate 60 mg 07/12/20 18:00 Methylprednisolone Sod Succi 125 Mg/2 Ml Vial IV Q6HR [facility] Nitroglycerin 0.4 mg 07/12/20 14:34 Nitroglycerin Sl Tabs 0.4 Mg Tab SUBLINGUAL Q5M PRN Chest Pain Nitroglycerin 1 inch 07/12/20 18:00 Nitroglycerin Oint 1 Inch/Gm Packet TOPICAL Q6HR MOLLY Intake and Output 07/12/20 07/12/20 07/12/20 06:59 14:59 22:59 Other: Weight 70.307 kg Patient Weight 07/13/20 06:59 Weight 70.307 kg 07/12/20 12:28 07/12/20 12:28
--- NOTE | 2020-07-12 17:32 | ECHOF ---
Referral Reason:Difficulty breathing MEASUREMENTS -------- HEIGHT: 180.3 cm WEIGHT: 70.3 kg BP: IVSd: 1.2 cm (0.6 - 1.1) LVIDd: 5.3 cm (3.9 - 5.3) LVPWd: 1.5 cm (0.6 - 1.1) IVSs: 1.5 cm LVIDs: 4.9 cm LVPWs: 1.6 cm LAESV Index (A-L): 23.85 ml/m Ao Diam: 3.4 cm (2.0 - 3.7) AV Cusp: 1.9 cm (1.5 - 2.6) LA Diam: 2.6 cm (2.7 - 3.8) MV EXCURSION: 13.883 mm (> 18.000) MV EF SLOPE: 104 mm/s (70 - 150) EPSS: 1.7 cm MV E Chris: 0.77 m/s MV DecT: 177 ms MV A Chris: 1.18 m/s MV E/A Ratio: 0.65 RAP: 5.00 mmHg RVSP: 32.12 mmHg FINDINGS -------- This was a technically difficult study with suboptimal views. The left ventricular size is normal. There is moderate concentric left ventricular hypertrophy. Ant erior wall ands septum hypokinetic . Overall left ventricular systolic function is severely impaire d with, an EF between 20 - 25 %. Normal LAP. Grade 1 Diastolic Dysfunction. The right ventricle is normal in size. The left atrial size is normal. Normal LA size by volume 22+/-6 ml/m2. The right atrial size is normal. xx ml of Lumason was utilized for enhancement of images. The aortic valve is trileaflet and appears structurally normal. The mitral valve is normal. [id number] mitral regurgitation is present. The tricuspid valve appears structurally normal. Mild tricuspid regurgitation present. Right vent ricular systolic pressure is normal at < 35 mmHg. There is no pulmonic regurgitation present. The aortic root size is normal. IVC Not well visulized. There is no pericardial effusion. CONCLUSIONS -------- 1. The left ventricular size is normal. 2. There is moderate concentric left ventricular hypertrophy. 3. There is anterior wall hypokinesis. 4. Overall left ventricular systolic function is severely impaired with, an EF between 20 - 25 %. 5. Normal LAP. Grade 1 Diastolic Dysfunction. 6. [id number] mitral regurgitation is present. 7. Mild tricuspid regurgitation present. 8. There is no pericardial effusion. PATIENT'S LIBRARIAN: Elyse Underwood RDCS
[2020-07-12] MEDS: NITROGLYCERIN OINT 1 INCH/GM PACKET TOPICAL SCH ×2 (18:20→22:59)
[2020-07-12] MEDS: methylPREDNISolone SOD SUCCI 125 MG/2 ML VIAL IV SCH ×2 (18:20→22:59)
[2020-07-12] MEDS: hydrALAZINE HCL 25 MG TAB PO SCH (19:34)
[2020-07-12] MEDS: METOPROLOL TARTRATE 25 MG TAB PO SCH (19:34)
[2020-07-12] MEDS: ATORVASTATIN 40 MG TAB PO SCH (19:34)
[2020-07-13 03:28] LABS: Cholesterol 212 mg/dL (<200); HDL Cholesterol 42 mg/dL (40-60); LDL Cholesterol,Calculated 143 mg/dL (0-99); Triglycerides 133 mg/dL (<150)
[2020-07-13] MEDS: methylPREDNISolone SOD SUCCI 125 MG/2 ML VIAL IV SCH ×2 (06:26→12:58)
[2020-07-13] MEDS: NITROGLYCERIN OINT 1 INCH/GM PACKET TOPICAL SCH (06:26)
--- NOTE | 2020-07-13 08:51 | P.HPIM ---
History of Present Illness This is a pleasant 89 years old male with past medical history of transient ischemic attack, COPD, gastroesophageal reflux disease, hypertension, benign prostatic hypertrophy, chronic kidney disease. He follows up in the [place] clinic Patient [facility] and he did EKG for him and he does not know why and they sent him to the hospital Patient noticed to be tachypneic while at rest however patient states this is not new for him and his been have been dyspneic for the last 2 years getting worse over the last year. Last May he decided to quit, usually he smokes 1- 1.5 pack per day, thinking that might help him with his breathing. He hasn't some cough with white yellow creamy phlegm that is been going on for a while and months Also is complaining of from chronic dizziness for about a year especially when he gets up he has to wait before he takes any step. No vertigo just nonspecific dizziness and no syncope Patient denies chest pain. No abdominal pain or diarrhea. Sometimes he feels dysuria but currently is not and no change in frequency but he thinks his urine is stinks He denies alcohol or illicit drugs. He has hearing difficulty and urinate but he denies ear pain or discharge Vitas looks stable and currently saturating 97 ambulatory oxygen via nasal cannula. This troponin is chronically elevated at 0.04 and 0.05, currently 0.07-0.09 CBC, BMP and liver enzymes are unremarkable. Creatinine is chronically elevated 1.6-2.0, currently is 1.9 EKG showing sinus tachycardia at 105 with PVCs and incomplete left branch block. QTC is 452 Echocardiogram: Ejection fraction is 20-25%, compared to 55-60% in 2016 Review of Systems CONSTITUTIONAL: No fever, no malaise, no fatigue. HEENT: No recent visual problems or hearing problems. Denied any sore throat. CARDIOVASCULAR: No orthopnea, PND, no palpitations, no syncope. PULMONARY: No chest wall tenderness no hemoptysis. GASTROINTESTINAL: No diarrhea, no nausea, no vomiting, no abdominal pain. Normoactive bowel sounds. NEUROLOGICAL: No headaches, no weakness, no numbness. HEMATOLOGICAL: Denies any bleeding or petechiae. GENITOURINARY: Denies any burning micturition, frequency, or urgency. MUSCULOSKELETAL/RHEUMATOLOGICAL: Denies any joint pain, swelling, or any muscle pain. ENDOCRINE: Denies any polyuria or polydipsia. Past Medical History Past Medical History: COPD, CVA/TIA, GERD/Reflux, Hypertension, Prostate Disorder, Renal Disease Additional Past Medical History / Comment(s): TIAs, BPH, CKD, neuropathy bilateral hands History of Any Multi-Drug Resistant Organisms: None Reported Past Surgical History: Heart Catheterization, Hernia Repair Additional Past Surgical History / Comment(s): R caratid endartectomy, bilateral cataracts removed/lens implants, cardiac cath-normal, R inguinal hernia repair, colonoscopy. Past Anesthesia/Blood Transfusion Reactions: No Reported Reaction Past Psychological History: No Psychological Hx Reported Smoking Status: Current every day smoker Past Alcohol Use History: None Reported Past Drug Use History: None Reported - Past Family History Mother Family Medical History: Diabetes Mellitus Additional Family Medical History / Comment(s): Mother lived to be 86yrs old. Father Family Medical History: Respiratory Disorder Additional Family Medical History / Comment(s): Father worked in the [employer] and had black lung. He at the age of 78yrs. Medications and Allergies Home Medications Medication Instructions Recorded Confirmed Type Tamsulosin [Flomax] 0.4 mg PO DAILY 03/18/16 07/12/20 History Metoprolol Tartrate [Lopressor] 25 mg PO DIRECTED 07/12/20 07/12/20 History Omeprazole 20 mg PO DAILY PRN 07/12/20 07/12/20 History Tiotropium 2.5 Mcg/Puff [Spiriva 1 puff INHALATION RT-BID 07/12/20 07/12/20 History Respimat 2.5 Mcg] hydrALAZINE HCL 25 mg PO DAILY 07/12/20 07/12/20 History hydrALAZINE HCL 25 mg PO DAILY PRN 07/12/20 07/12/20 History Allergies Allergy/AdvReac Type Severity Reaction Status Date / Time sulfur dioxide Allergy Unknown Verified 07/12/20 14:24 Physical Exam Vitals: Vital Signs Temp Pulse Pulse Resp BP BP Pulse Ox 07/13/20 04:00 98.0 F 77 16 150/62 97 07/13/20 02:00 88 16 07/13/20 00:00 97.9 F 88 16 144/70 96 07/12/20 20:00 107 H 18 07/12/20 19:36 98.0 F 107 H 18 159/76 94 L 07/12/20 16:00 97.9 F 94 16 176/77 99 07/12/20 15:58 97.9 F 07/12/20 15:26 97.9 F 89 16 184/110 99 07/12/20 14:32 79 18 07/12/20 14:24 80 16 07/12/20 14:00 90 19 174/89 100 07/12/20 13:06 88 174/89 07/12/20 13:00 84 22 157/98 100 07/12/20 12:20 97 20 188/101 100 07/12/20 11:52 98.2 F 97 18 165/105 97 Intake and Output 07/12/20 07/13/20 07/13/20 22:59 06:59 14:59 Intake Total 240 Balance 240 Intake: Oral 240 Other: Voiding Method Urinal Urinal # Voids 1 Weight 70.307 kg 71.4 kg GENERAL: The patient is alert and oriented x3, not in any acute distress. Well developed, well nourished. HEENT: Pupils are round and equally reacting to light. EOMI. No scleral icterus. No conjunctival pallor. Normocephalic, atraumatic. No pharyngeal erythema. No thyromegaly. CARDIOVASCULAR: S1 and S2 present. No murmurs, rubs, or gallops. -PULMONARY: Chest is clear to auscultation, no wheezing or crackles. Tachypneic ABDOMEN: Soft, nontender, nondistended, normoactive bowel sounds. No palpable organomegaly. MUSCULOSKELETAL: No joint swelling or deformity. EXTREMITIES: No cyanosis, clubbing, or pedal edema. NEUROLOGICAL: Gross neurological examination did not reveal any focal deficits. SKIN: No rashes. no petechiae. Results CBC & Chem 7: 07/12/20 12:28 07/12/20 12:28 Labs: Abnormal Lab Results - Last 24 Hours (Table) 07/12/20 07/12/20 07/12/20 Range/Units 12:28 12:28 12:28 RBC 3.92 L (4.30-5.90) m/uL Hgb 12.1 L (13.0-17.5) gm/dL Hct 36.1 L (39.0-53.0) % Eosinophils # 2.0 H (0-0.7) k/uL D-Dimer 0.73 H (<0.60) mg/L FEU BUN 29 H (9-20) mg/dL Creatinine 1.98 H (0.66-1.25) mg/dL Glucose 242 H (74-99) mg/dL Plasma Lactic Acid Fran (0.7-2.0) mmol/L AST 15 L (17-59) U/L Troponin I (0.000-0.034) ng/mL Cholesterol (<200) mg/dL LDL Cholesterol, Calc (0-99) mg/dL 07/12/20 07/12/20 07/12/20 Range/Units 12:28 12:28 12:28 RBC (4.30-5.90) m/uL Hgb (13.0-17.5) gm/dL Hct (39.0-53.0) % Eosinophils # (0-0.7) k/uL D-Dimer (<0.60) mg/L FEU BUN (9-20) mg/dL Creatinine (0.66-1.25) mg/dL Glucose (74-99) mg/dL Plasma Lactic Acid Fran 2.2 H* (0.7-2.0) mmol/L AST (17-59) U/L Troponin I 0.085 H* (0.000-0.034) ng/mL Cholesterol 212 H (<200) mg/dL LDL Cholesterol, Calc 143 H (0-99) mg/dL 07/12/20 07/12/20 Range/Units 15:15 18:28 RBC (4.30-5.90) m/uL Hgb (13.0-17.5) gm/dL Hct (39.0-53.0) % Eosinophils # (0-0.7) k/uL D-Dimer (<0.60) mg/L FEU BUN (9-20) mg/dL Creatinine (0.66-1.25) mg/dL Glucose (74-99) mg/dL Plasma Lactic Acid Fran (0.7-2.0) mmol/L AST (17-59) U/L Troponin I 0.090 H* 0.077 H* (0.000-0.034) ng/mL Cholesterol (<200) mg/dL LDL Cholesterol, Calc (0-99) mg/dL Thrombosis Risk Factor Assmnt - Choose All That Apply Any of the Below Risk Factors Present?: Yes Each Factor Represents 1 point: Abnormal pulmonary function (COPD) Other Risk Factors: Yes Each Risk Factor Represents 3 Points: Age 75 years or older Other congenital or acquired thrombophilia - If yes, enter type in comment: No Thrombosis Risk Factor Assessment Total Risk Factor Score: 4 Thrombosis Risk Factor Assessment Level: Moderate Risk Assessment and Plan Assessment: Ongoing Chronic dyspnea for 2 years worsening the last year, with with coughing and yellowish phlegm . It might have some acute component related to his heart or lung disease Suspect acute on chronic systolic CHF Possible elements of coronary artery disease given his risk factors, entry level drafter recommended medical therapy COPD for some acute exacerbation is suspected Nicotine dependence Hypertension Chronic kidney disease, stage 3-4 History of TIA History of GERD Benign prostatic hypertrophy Plan: This is a pleasant 89 years old male who presents with ongoing dyspnea on coughing with dizziness. Cardiology evaluated the patient and recommended medical therapy with no intervention at the adjusted his hydralazine and Lopressor for better control of his high blood pressure. Also will continue with aspirin and Lipitor. Pulmonary evaluation is requested from emergency room. Also output the patient small dose of IV Lasix at 20 mg iv daily we will check orthostatic vitals. Send urine analysis Labs and medication were reviewed.. Continue same treatment. Continue with symptomatic treatment. Resume home medication. Monitor lytes and vitals. DVT and GI prophylaxis. Further recommendationsas per clinical course of the patient DVT prophylaxis: Subcutaneous heparin GI Prophylaxis: Pepcid PT/OT: Pending Prognosis is guarded
[2020-07-13] MEDS ORDERED: FUROSEMIDE 10 MG/ML 2 ML VIAL IV SCH (09:00)
[2020-07-13] MEDS ORDERED: ASPIRIN 325 MG TAB PO SCH (09:00)
[2020-07-13] MEDS ORDERED: FAMOTIDINE 20 MG/2 ML VIAL IV SCH (09:00)
[2020-07-13] MEDS: ASPIRIN 81 MG PO SCH (09:52)
[2020-07-13] MEDS: METOPROLOL TARTRATE 25 MG TAB PO SCH ×2 (09:52→20:16)
[2020-07-13] MEDS: HEPARIN SODIUM,PORCINE 5,000 UNIT/ML 1 ML VIAL SQ SCH ×2 (09:52→20:16)
[2020-07-13] MEDS: TAMSULOSIN 0.4 MG CAP.ER.24H PO SCH (09:52)
[2020-07-13] MEDS: hydrALAZINE HCL 25 MG TAB PO SCH ×2 (09:52→20:16)
[2020-07-13] MEDS: ISOSORBIDE MONONITRATE ER 30 MG TAB.ER.24H PO SCH (09:54)
--- NOTE | 2020-07-13 10:00 | P.PN ---
Subjective HISTORY OF PRESENTING ILLNESS This is a pleasant 89-year-old male past medical history significant for hypertension, TIA, chronic kidney disease, peripheral vascular disease status post right carotid endarterectomy, COPD and former nicotine dependence. He states he quit smoking 2 months ago. 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 Echocardiogram obtained revealed severely impaired LV systolic function with ejection fraction 20-25%, anterior hypokinesia noted, mild to moderate mitral regurgitation. Blood pressure 150/62 heart rate 77 afebrile maintaining oxygen saturation on nasal cannula. Troponin trend 0.085, 0.090 and 0.077. Lipid panel, LDL 143, HDL 42 and total cholesterol 212. Currently maintained on Lopressor 25 mg twice a day, hydralazine 25 mg twice a day, atorvastatin 80 mg daily and aspirin 81 mg daily. He is also on lasix 20 mg IV daily per the primary care team. PHYSICAL EXAMINATION CONSTITUTIONAL: No apparent distress. HEENT: Head is normocephalic. Pupils are equal, round. Sclerae anicteric. Mucous membranes of the mouth are moist. No JVD. No carotid bruit. CHEST EXAMINATION: Significantly diminished bilaterally with expiratory wheezes. No rhonchi or rales. No chest wall tenderness is noted on palpation or with deep breathing. HEART EXAMINATION: Irregular rate and rhythm. S1, S2 heard. No murmurs, gallops or rub. EXTREMITIES: 1+ peripheral pulses, no lower extremity edema and no calf tenderness. ASSESSMENT Dyspnea on exertion Troponin leak, not indicative of primary myocardial injury. Flat with no significant rise/fall pattern. Likely due to renal function. Acute systolic heart failure Cardiomyopathy, unknown if ischemic or non-ischemic Hypertension, uncontrolled Chronic kidney disease Lactic acidosis Peripheral vascular disease status post right carotid endarterectomy COPD History of TIA Former nicotine dependence, quit 2 months ago PLAN Increase lasix to 20 mg IV BID. Document accurate intake and output along with daily weights. Follow renal function and electrolytes in the morning. Add imdur 30 mg daily to his regimen. Further recommendations to follow based on clinical course. Nurse Practitioner note has been reviewed, I agree with a documented findings and plan of care. Patient was seen and examined. Objective - Vital Signs Vital signs: Vital Signs Temp 98.0 F 07/13/20 04:00 Pulse 77 07/13/20 04:00 Resp 16 07/13/20 04:00 BP 150/62 07/13/20 04:00 Pulse Ox 97 07/13/20 04:00 Intake & Output 07/12/20 07/13/20 07/13/20 18:59 06:59 18:59 Intake Total 240 480 Balance 240 480 Weight 70.307 kg 71.4 kg Intake: Oral 240 480 Other: Voiding Method Urinal # Voids 1 - Labs CBC & Chem 7: 07/12/20 12:28 07/12/20 12:28 Labs: Abnormal Lab Results - Last 24 Hours (Table) 07/12/20 07/12/20 07/12/20 Range/Units 12:28 12: 12:28 RBC 3.92 L (4.30-5.90) m/uL Hgb 12.1 L (13.0-17.5) gm/dL Hct 36.1 L (39.0-53.0) % Eosinophils # 2.0 H (0-0.7) k/uL D-Dimer 0.73 H (<0.60) mg/L FEU BUN 29 H (9-20) mg/dL Creatinine 1.98 H (0.66-1.25) mg/dL Glucose 242 H (74-99) mg/dL Plasma Lactic Acid Fran (0.7-2.0) mmol/L AST 15 L (17-59) U/L Troponin I (0.000-0.034) ng/mL Cholesterol (<200) mg/dL LDL Cholesterol, Calc (0-99) mg/dL 07/12/20 07/12/20 07/12/20 Range/Units 12: 12: 12:28 RBC (4.30-5.90) m/uL Hgb (13.0-17.5) gm/dL Hct (39.0-53.0) % Eosinophils # (0-0.7) k/uL D-Dimer (<0.60) mg/L FEU BUN (9-20) mg/dL Creatinine (0.66-1.25) mg/dL Glucose (74-99) mg/dL Plasma Lactic Acid Fran 2.2 H* (0.7-2.0) mmol/L AST (17-59) U/L Troponin I 0.085 H* (0.000-0.034) ng/mL Cholesterol 212 H (<200) mg/dL LDL Cholesterol, Calc 143 H (0-99) mg/dL 07/12/20 07/12/20 Range/Units 15:15 18:28 RBC (4.30-5.90) m/uL Hgb (13.0-17.5) gm/dL Hct (39.0-53.0) % Eosinophils # (0-0.7) k/uL D-Dimer (<0.60) mg/L FEU BUN (9-20) mg/dL Creatinine (0.66-1.25) mg/dL Glucose (74-99) mg/dL Plasma Lactic Acid Fran (0.7-2.0) mmol/L AST (17-59) U/L Troponin I 0.090 H* 0.077 H* (0.000-0.034) ng/mL Cholesterol (<200) mg/dL LDL Cholesterol, Calc (0-99) mg/dL
[2020-07-13 11:02] LABS: Calcium 9.5 mg/dL (8.4-10.2)
[2020-07-13 11:21] LABS: Potassium 5.4 mmol/L (3.5-5.1)
[2020-07-13] MEDS: IPRATROPIUM-ALBUTEROL 3 ML NEB INHALATION PRN ×3 (11:35→21:30)
[2020-07-13] MEDS: IPRATROPIUM 0.5 MG/2.5 ML NEBU INHALATION SCH ×3 (11:36→21:31)
--- NOTE | 2020-07-13 13:22 | P.CNPUL ---
History of Present Illness Consult date: 07/13/20 Requesting physician: Samra Araiza Reason for consult: dyspnea, COPD Chief complaint: shortness of breath and chest pain. History of present illness: 89-year-old male who presents to the emergency department on 07/12/2020, complaining of shortness of breath. The patient has a history of underlying COPD. He isn't smoking since the age of 18. At 73 years, 1-2 packs a day. He also apparently carries with him a diagnosis of hypertension, and apparently also was complaining of elevated blood pressure when the patient came into the emergency department. The patient apparently had seen his medical doctor and/or his editor publications earlier in the day. He was told to come to the hospital to be evaluated. He denies any cough, or wheezing. He denies any phlegm production. He also denies any nausea, vomiting, abdominal pain, or diarrhea. He also denies any genitourinary complaints. He was seen by Dr. Smith emergency department, admitted with a diagnosis of COPD exacerbation, elevated troponin, and EKG changes. Currently on room air, his saturation is 97%. His chest x-ray did not show any acute cardiopulmonary abnormality. His white count is 9.4, hemoglobin 12.1, hematocrit 36.1, and platelet count 249,000. PT/INR and PTT all normal. D-dimer is 0.73. Sodium 137, potassium 5.4, chlorides 103, CO2 21, anion gap 13, with a BUN of 37 and a creatinine of 1.91. Troponin was 0.077, an N- terminal proBNP was 10,900. Coronavirus testing was negative. Review of Systems REVIEW OF SYSTEMS: CONSTITUTIONAL: [Negative.] NEUROLOGIC: [ Negative.] HEENT: [ Negative.] CARDIAC: chest pain, elevated blood pressure. PULMONARY: shortness of breath. GI: [Negative.] : [Negative.] RHEUMATOLOGIC: [ Negative.] IMMUNOLOGIC: [ Negative.] ENDOCRINE: [Negative. ] DERMATOLOGIC: [Negative.] Past Medical History Past Medical History: COPD, CVA/TIA, GERD/Reflux, Hypertension, Prostate Disorder, Renal Disease Additional Past Medical History / Comment(s): TIAs, BPH, CKD, neuropathy bilater al hands History of Any Multi-Drug Resistant Organisms: None Reported Past Surgical History: Heart Catheterization, Hernia Repair Additional Past Surgical History / Comment(s): R caratid endartectomy, bilateral cataracts removed/lens implants, cardiac cath-normal, R inguinal hernia repair, colonoscopy. Past Anesthesia/Blood Transfusion Reactions: No Reported Reaction Past Psychological History: No Psychological Hx Reported Smoking Status: Current every day smoker Past Alcohol Use History: None Reported Past Drug Use History: None Reported - Past Family History Mother Family Medical History: Diabetes Mellitus Additional Family Medical History / Comment(s): Mother lived to be 86yrs old. Father Family Medical History: Respiratory Disorder Additional Family Medical History / Comment(s): Father worked in the [employer] and had black lung. He at the age of 78yrs. Medications and Allergies Home Medications Medication Instructions Recorded Confirmed Type Tamsulosin [Flomax] 0.4 mg PO DAILY 03/18/16 07/12/20 History Metoprolol Tartrate [Lopressor] 25 mg PO DIRECTED 07/12/20 07/12/20 History Omeprazole 20 mg PO DAILY PRN 07/12/20 07/12/20 History Tiotropium 2.5 Mcg/Puff [Spiriva 1 puff INHALATION RT-BID 07/12/20 07/12/20 History Respimat 2.5 Mcg] hydrALAZINE HCL 25 mg PO DAILY 07/12/20 07/12/20 History hydrALAZINE HCL 25 mg PO DAILY PRN 07/12/20 07/12/20 History Allergies Allergy/AdvReac Type Severity Reaction Status Date / Time sulfur dioxide Allergy Unknown Verified 07/12/20 14:24 Physical Exam Osteopathic Statement: *. No significant issues noted on an osteopathic structural exam other than those noted in the History and Physical/Consult. Vitals: Vital Signs Temp Pulse Pulse Resp BP BP Pulse Ox 07/13/20 11:47 62 07/13/20 11:40 64 07/13/20 04:00 98.0 F 77 16 150/62 97 07/13/20 02:00 88 16 07/13/20 00:00 97.9 F 88 16 144/70 96 07/12/20 20:00 107 H 18 07/12/20 19:36 98.0 F 107 H 18 159/76 94 L 07/12/20 16:00 97.9 F 94 16 176/77 99 07/12/20 15:58 97.9 F 07/12/20 15:26 97.9 F 89 16 184/110 99 07/12/20 14:32 79 18 07/12/20 14:24 80 16 07/12/20 14:00 90 19 174/89 100 Intake and Output 07/12/20 07/13/20 07/13/20 22:59 06:59 14:59 Intake Total 240 480 Balance 240 480 Intake: Oral 240 480 Other: Voiding Method Urinal Urinal # Voids 1 Weight 70.307 kg 71.4 kg No acute distress, oriented 3. Currently on room air. Saturation is 97%. No conversational dyspnea, or audible wheezing. HEENT examination is grossly unremarkable. Mucous membranes are moist. No oral lesions. Neck supple. Full range of motion. No adenopathy thyromegaly or neck vein distention. Cardiovascular examination reveals regular rhythm rate. S1-S2 normal. No S3 or S4. No discernible murmur noted. Heart rate is 62 bpm. Lungs reveal mostly clear breath sounds. A few scattered rhonchi. No wheezes or crackles. Breath sounds equal bilaterally but diminished throughout. Abdomen soft bowel sounds are heard. No masses or tenderness. Extremities are intact. No cyanosis clubbing or edema. Skin is without rash or lesion. Neurologic examination is brief but nonfocal. Results - Laboratory Findings CBC and BMP: 07/12/20 12:28 07/13/20 10:28 PT/INR, D-dimer PT 10.0 sec (9.0-12.0) 07/12/20 12:28 INR 0.9 (<1.2) 07/12/20 12:28 D-Dimer 0.73 mg/L FEU (<0.60) H 07/12/20 12:28 Abnormal lab findings: Abnormal Labs 07/12/20 07/12/20 07/12/20 12:28 12:28 12:28 RBC 3.92 L Hgb 12.1 L Hct 36.1 L Eosinophils # 2.0 H D-Dimer 0.73 H Potassium Carbon Dioxide BUN 29 H Creatinine 1.98 H Glucose 242 H Plasma Lactic Acid Fran AST 15 L Troponin I Cholesterol LDL Cholesterol, Calc 07/12/20 07/12/20 07/12/20 12:28 12:28 12:28 RBC Hgb Hct Eosinophils # D-Dimer Potassium Carbon Dioxide BUN Creatinine Glucose Plasma Lactic Acid Fran 2.2 H* AST Troponin I 0.085 H* Cholesterol 212 H LDL Cholesterol, Calc 143 H 07/12/20 07/12/20 07/13/20 15:15 18:28 10:28 RBC Hgb Hct Eosinophils # D-Dimer Potassium 5.4 H Carbon Dioxide 21 L BUN 37 H Creatinine 1.91 H Glucose 291 H Plasma Lactic Acid Fran AST Troponin I 0.090 H* 0.077 H* Cholesterol LDL Cholesterol, Calc - Diagnostic Findings Chest x-ray: image reviewed Assessment and Plan Assessment: Shortness of breath, likely multifactorial, in part related to systolic heart failure, as well as mild COPD exacerbation. Mild troponin leak, likely related to supply/demand mismatch. Prior history of severe tobacco use/abuse, 71 years of smoking. Recent tobacco cessation, May of this year. History of cardiomyopathy. Essential hypertension. History of TIA. Chronic kidney disease. Peripheral vascular occlusive disease, status post right carotid endarterectomy. History of underlying COPD, although patient has never seen a lung doctor. Plan: Plan dated 07/13/2020. The patient's labs, x-rays, and medications are all reviewed. We'll make sure that he is on appropriate medications for suspected underlying COPD. The patient recently stopped smoking in May of this year. He smoked for 73 years. He smoked 1-2 packs a day. The patient will need follow-up in our office for pulmonary function testing. We will continue to follow make recommendations were appropriate. The patient should be on Symbicort 160/4.5, 2 puffs twice a day, and DuoNeb, 4 times a day and when necessary. He is counseled on the importance of never smoking again. Additional recommendations and suggestions are forthcoming. Time with Patient: Greater than 30
[2020-07-13 13:47] VITALS: RESP 18
--- NOTE | 2020-07-13 15:53 | CDI ---
Documentation Clarification Form Date: 07/13/2020 03:03:19 PM From: Nannette Hwang RN CCDS Admit Date: 07/12/2020 02:35:00 PM Patient Name: Mary Duong Visit Number: [id number] Discharge Date: ATTENTION: The Clinical Documentation Specialists (CDI) and [facility] Coding Staff appreciate your assistance in clarifying documentation. Please respond to the clarification below the line at the bottom and electronically sign. The CDI & [facility] Coding staff will review the response and follow-up if needed. Please note: Queries are made part of the Legal Health Record. If you have any questions, please contact the author of this message via ITS. Dr. Houston E Sheet CKD Stage 3-4 is documented in the H&P 07/13 History/Risk Factors: 89-year-old presents to the ED for being more dyspneic than usual. Medical History: HTN, CKD and COPD. Patients Historical BUN 23 / CR 2.05 / GFR 29, Documented in [facility] 07/01/18 Clinical Indicators: Current BUN 29 / CR 1.98 / GFR 29, Documented in [facility] 07/12/20. Treatment: 07/12 Apresoline 25mg PO x1; 07/12 Apresoline 25mg PO BID MOLLY; 07/12 Lopressor PO BID MOLLY; 07/13 Lasix 20mg IV Q12HR MOLLY; 07/13 Imdur PO Daily MOLLY. In order to capture the severity of condition, please clarify the stage of the CKD, if known: CKD Stage 3a (GFR 45-59) CKD Stage 3b (GFR 30-44) CKD Stage 4 (GFR 15-29) Other, please specify Unable to determine [Template Last reviewed: January 2020] please refer to my note MTDD
[2020-07-13] MEDS ORDERED: SODIUM POLYSTYRENE SULFONATE 15 GM/60 ML BOTTLE PO STA (16:03)
[2020-07-13] MEDS: ATORVASTATIN 40 MG TAB PO SCH (20:16)
[2020-07-13] MEDS: FUROSEMIDE 10 MG/ML 2 ML VIAL IV SCH (20:16)
[2020-07-13] MEDS: FAMOTIDINE 20 MG TAB PO SCH (20:16)
[2020-07-13 20:22] LABS: Appearance,Urine Clear (Clear); Bilirubin,Urine Negative (Negative); Blood,Urine Negative (Negative); Color,Urine Yellow; Glucose,Urine (UA) Trace (Negative); Hyaline Casts,Urine 1 /lpf (0-2); Ketones,Urine Negative (Negative); Leukocyte Esterase,Urine Trace (Negative); Nitrite,Urine Negative (Negative); PH, Urine 5.5 (5.0-8.0); Protein,Urine 1+ (Negative); RBC,Urine <1 /hpf (0-5); Specific Gravity,Urine 1.011 (1.001-1.035); Squamous Epithelial Cell,Urine <1 /hpf (0-4); Urobilinogen,Urine <2.0 mg/dL (<2.0); WBC,Urine 4 /hpf (0-5)
[2020-07-13] MEDS: SYMBICORT 160-4.5 MCG INHALER INHALATION SCH (21:31)
[2020-07-14 07:45] LABS: Magnesium 2.2 mg/dL (1.6-2.3); Potassium 4.5 mmol/L (3.5-5.1)
[2020-07-14] MEDS: IPRATROPIUM 0.5 MG/2.5 ML NEBU INHALATION SCH ×4 (08:40→19:37)
[2020-07-14] MEDS: SYMBICORT 160-4.5 MCG INHALER INHALATION SCH ×2 (08:40→19:37)
[2020-07-14] MEDS: FUROSEMIDE 10 MG/ML 2 ML VIAL IV SCH (08:58)
[2020-07-14] MEDS: ASPIRIN 81 MG PO SCH (08:58)
[2020-07-14] MEDS: FAMOTIDINE 20 MG TAB PO SCH ×2 (08:58→20:21)
[2020-07-14] MEDS: ISOSORBIDE MONONITRATE ER 30 MG TAB.ER.24H PO SCH (08:58)
[2020-07-14] MEDS: METOPROLOL TARTRATE 25 MG TAB PO SCH ×2 (08:58→20:21)
[2020-07-14] MEDS: TAMSULOSIN 0.4 MG CAP.ER.24H PO SCH (08:58)
[2020-07-14] MEDS: hydrALAZINE HCL 25 MG TAB PO SCH ×2 (08:58→20:21)
[2020-07-14] MEDS: HEPARIN SODIUM,PORCINE 5,000 UNIT/ML 1 ML VIAL SQ SCH ×2 (08:59→20:21)
[2020-07-14] MEDS ORDERED: hydrALAZINE HCL 25 MG TAB PO STA (11:44)
--- NOTE | 2020-07-14 11:44 | P.PN ---
Subjective HISTORY OF PRESENTING ILLNESS This is a pleasant 89-year-old male past medical history significant for hypertension, TIA, chronic kidney disease, peripheral vascular disease status post right carotid endarterectomy, COPD and former nicotine dependence. He states he quit smoking 2 months ago. He does not follow in the office with a music library assistant. Echocardiogram obtained revealed severely impaired LV systolic function with ejection fraction 20-25%, anterior hypokinesia noted, mild to moderate mitral regurgitation. Blood pressure 151/72 heart rate 82 afebrile maintaining oxygen saturation on nasal cannula. He continues to be maintained on IV diuretics. He states he was up urinating frequently through the night. Laboratory data reviewed, sodium 136, potassium 4.5, creatinine 2.36 and magnesium 2.2. He denies worsening shortness of breath. He has no chest pain, dizziness or palpitations. PHYSICAL EXAMINATION CONSTITUTIONAL: No apparent distress. HEENT: Head is normocephalic. Pupils are equal, round. Sclerae anicteric. Mucous membranes of the mouth are moist. No JVD. No carotid bruit. CHEST EXAMINATION: Significantly diminished bilaterally with expiratory wheezes. No rhonchi or rales. No chest wall tenderness is noted on palpation or with deep breathing. HEART EXAMINATION: Irregular rate and rhythm. S1, S2 heard. No murmurs, gallops or rub. EXTREMITIES: 1+ peripheral pulses, no lower extremity edema and no calf tenderness. ASSESSMENT Dyspnea on exertion Troponin leak, not indicative of primary myocardial injury. Flat with no significant rise/fall pattern. Likely due to renal function. Acute systolic heart failure Cardiomyopathy, unknown if ischemic or non-ischemic Hypertension, uncontrolled Chronic kidney disease Lactic acidosis Peripheral vascular disease status post right carotid endarterectomy COPD History of TIA Former nicotine dependence, quit 2 months ago PLAN Transition diuretics to 20 mg by mouth twice a day. Increase hydralazine to 50 mg twice a day. Follow renal function and electrolytes in the morning. Further recommendations to follow based on clinical course. Nurse Practitioner note has been reviewed, I agree with a documented findings and plan of care. Patient was seen and examined. Objective - Vital Signs Vital signs: Vital Signs Temp 97.3 F L 07/14/20 08:00 Pulse 82 07/14/20 08:00 Resp 18 07/14/20 08:00 BP 151/72 07/14/20 08:00 Pulse Ox 98 07/14/20 08:00 Intake & Output 07/13/20 07/14/20 07/14/20 18:59 06:59 18:59 Intake Total 960 475 560 Output Total 300 Balance 960 175 560 Weight 69.9 kg Intake: Oral 960 475 560 Output: Urine 300 Other: Voiding Method Urinal Urinal - Labs CBC & Chem 7: 07/12/20 12:28 07/14/20 07:08 Labs: Abnormal Lab Results - Last 24 Hours (Table) 07/13/20 07/14/20 Range/Units 20:07 07:08 Sodium 136 L (137-145) mmol/L BUN 50 H (9-20) mg/dL Creatinine 2.36 H (0.66-1.25) mg/dL Glucose 206 H (74-99) mg/dL Urine Protein 1+ H (Negative) Urine Glucose (UA) Trace H (Negative) Ur Leukocyte Esterase Trace H (Negative) Microbiology - Last 24 Hours (Table) 07/12/20 12:42 Blood Culture - Preliminary Blood No Growth after 24 hours
[2020-07-14] MEDS: IPRATROPIUM-ALBUTEROL 3 ML NEB INHALATION PRN ×2 (11:57→16:13)
--- NOTE | 2020-07-14 13:19 | P.PN ---
Subjective Progress Note Date: 07/14/20 Principal diagnosis: Shortness of breath, chest pain. 89-year-old male who presents to the emergency department on 07/12/2020, complaining of shortness of breath. The patient has a history of underlying COPD. He isn't smoking since the age of 18. At 73 years, 1-2 packs a day. He also apparently carries with him a diagnosis of hypertension, and apparently also was complaining of elevated blood pressure when the patient came into the emergency department. The patient apparently had seen his medical doctor and/or his solar project engineer earlier in the day. He was told to come to the hospital to be evaluated. He denies any cough, or wheezing. He denies any phlegm production. He also denies any nausea, vomiting, abdominal pain, or diarrhea. He also denies any genitourinary complaints. He was seen by Dr. Smith emergency department, admitted with a diagnosis of COPD exacerbation, elevated troponin, and EKG changes. Currently on room air, his saturation is 97%. His chest x-ray did not show any acute cardiopulmonary abnormality. His white count is 9.4, hemoglobin 12.1, hematocrit 36.1, and platelet count 249,000. PT/INR and PTT all normal. D-dimer is 0.73. Sodium 137, potassium 5.4, chlorides 103, CO2 21, anion gap 13, with a BUN of 37 and a creatinine of 1.91. Troponin was 0.077, an N- terminal proBNP was 10,900. Coronavirus testing was negative. Progress note dated 07/14/2020. 89-year-old male seen yesterday in consultation. He came into the emergency d epartment on 07/12, complaining of shortness of breath. He does have a history of underlying COPD. He's been smoking 73 years, 1-2 packs a day. Also, the patient had an elevated blood pressure, and was sent in by his solar project engineer. He does have a history of essential hypertension. Currently doing much better. Feeling much better. Denies any shortness of breath at this time. He also denies any chest pain or chest discomfort. From the pulmonary standpoint, the patient stable and could be discharged, though it appears that cardiology would like patient to stay in the hospital for a bit longer. The patient denies any sputum production. He denies any fever or chills. He denies any nausea, vomiting, or diarrhea. His saturations on 1 L is 99%. Temperature is 98.2. Blood pressure 139/65 with a mean of 89. Sodium 136, potassium 4.5, chlorides 103, CO2 22, anion gap 11, and BUN/creatinine are 50 and 2.36, respectively. Objective - Vital Signs Vital signs: Vital Signs Temp 98.2 F 07/14/20 11:55 Pulse 88 07/14/20 12:08 Resp 18 07/14/20 11:55 BP 139/65 07/14/20 11:55 Pulse Ox 99 07/14/20 11:55 Intake & Output 07/13/20 07/14/20 07/14/20 18:59 06:59 18:59 Intake Total 960 475 560 Output Total 300 Balance 960 175 560 Weight 69.9 kg 70.7 kg Intake: Oral 960 475 560 Output: Urine 300 Other: Voiding Method Urinal Urinal - Exam No acute distress, oriented 3. Currently on 1 L. Saturation is 99%. No conversational dyspnea, or audible wheezing. HEENT examination is grossly unremarkable. Mucous membranes are moist. No oral lesions. Neck supple. Full range of motion. No adenopathy thyromegaly or neck vein distention. Cardiovascular examination reveals regular rhythm rate. S1-S2 normal. No S3 or S4. No discernible murmur noted. Heart rate is 88 bpm. Lungs reveal mostly clear breath sounds. A few scattered rhonchi. No wheezes or crackles. Breath sounds equal bilaterally but diminished throughout. Abdomen soft bowel sounds are heard. No masses or tenderness. Extremities are intact. No cyanosis clubbing or edema. Skin is without rash or lesion. Neurologic examination is brief but nonfocal. - Labs CBC & Chem 7: 07/12/20 12:28 07/14/20 07:08 Labs: Abnormal Lab Results - Last 24 Hours (Table) 07/13/20 07/14/20 Range/Units 20:07 07:08 Sodium 136 L (137-145) mmol/L BUN 50 H (9-20) mg/dL Creatinine 2.36 H (0.66-1.25) mg/dL Glucose 206 H (74-99) mg/dL Urine Protein 1+ H (Negative) Urine Glucose (UA) Trace H (Negative) Ur Leukocyte Esterase Trace H (Negative) Microbiology - Last 24 Hours (Table) 07/12/20 12:48 Blood Culture - Preliminary Blood No Growth after 24 hours 07/12/20 12:42 Blood Culture - Preliminary Blood No Growth after 24 hours Assessment and Plan Assessment: Shortness of breath, likely multifactorial, in part related to systolic heart failure, as well as mild COPD exacerbation. Mild troponin leak, likely related to supply/demand mismatch. Prior history of severe tobacco use/abuse, 71 years of smoking. Recent tobacco cessation, May 2020. History of cardiomyopathy. Essential hypertension. History of TIA. Chronic kidney disease. Peripheral vascular occlusive disease, status post right carotid endarterectomy. History of underlying COPD, although patient has never seen a lung doctor. Plan: Plan dated 07/14/2020. The patient seems be doing much better. He is currently only on 1 L nasal O2, and saturations are 99%. He probably does not need the oxygen. He did quit smoking in May. He academic counselor him about the importance of ongoing smoking cessation. Laboratory values are reviewed. Microbiology including blood cultures are negative. Chest x-ray was reviewed. Medications are reviewed, and the only thing he is on for his lungs are updrafts, and Symbicort. I did not feel when I saw him yesterday, that he needed corticosteroids. Again, he can probably be taken off oxygen. He should see us in follow-up so that we can do complete pulmonary function test. In addition, he will need a 6 minute walk distance. Time with Patient: Less than 30
[2020-07-14] MEDS: FUROSEMIDE 20 MG TAB PO SCH (15:42)
[2020-07-14] MEDS: ATORVASTATIN 40 MG TAB PO SCH (20:21)
--- NOTE | 2020-07-14 22:17 | P.PN ---
Subjective This is a pleasant 89 years old male with past medical history of transient ischemic attack, COPD, gastroesophageal reflux disease, hypertension, benign prostatic hypertrophy, chronic kidney disease. [facility] Patient states that [facility] follow[facility]up appointment and he did EKG for him and he does not know why and they sent him to the hospital Patient noticed to be tachypneic while at rest however patient states this is not new for him and his been have been dyspneic for the last 2 years getting worse over the last year. Last May he decided to quit, usually he smokes 1- 1.5 pack per day, thinking that might help him with his breathing. He hasn't some cough with white yellow creamy phlegm that is been going on for a while and months Also is complaining of from chronic dizziness for about a year especially when he gets up he has to wait before he takes any step. No vertigo just nonspecific dizziness and no syncope Patient denies chest pain. No abdominal pain or diarrhea. Sometimes he feels dysuria but currently is not and no change in frequency but he thinks his urine is stinks He denies alcohol or illicit drugs. He has hearing difficulty and urinate but he denies ear pain or discharge Vitas looks stable and currently saturating 97 ambulatory oxygen via nasal can nula. This troponin is chronically elevated at 0.04 and 0.05, currently 0.07- 0.09 CBC, BMP and liver enzymes are unremarkable. Creatinine is chronically elevated 1.6-2.0, currently is 1.9 EKG showing sinus tachycardia at 105 with PVCs and incomplete left branch block. QTC is 452 Echocardiogram: Ejection fraction is 20-25%, compared to 55-60% in 2016 07/14/2020 Today patient dyspnea is completely resolved and there is no basal crepitation or leg swelling His creatinine increased mostly secondary to Lasix which is his wish to oral 20 mg twice a day by animal anatomist Hydralazine provided by animal anatomist for better blood pressure control Discussed the case with cardiology team recommended to keep the patient for 24- hour for new onset cardiomyopathy with ejection fraction 20-25% Review of Systems CONSTITUTIONAL: No fever, no malaise, no fatigue. HEENT: No recent visual problems or hearing problems. Denied any sore throat. CARDIOVASCULAR: No orthopnea, PND, no palpitations, no syncope. PULMONARY: No chest wall tenderness no hemoptysis. GASTROINTESTINAL: No diarrhea, no nausea, no vomiting, no abdominal pain. Normoactive bowel sounds. NEUROLOGICAL: No headaches, no weakness, no numbness. Active Medications Generic Name Dose Route Start Last Admin Trade Name Freq PRN Reason Stop Dose Admin Albuterol/Ipratropium 3 ml 07/12/20 14:36 07/14/20 16:13 Ipratropium-Albuterol 3 Ml Neb INHALATION 3 ml RT-QID PRN Administration Shortness Of Breath Or Wheezing Aspirin 81 mg 07/13/20 09:00 07/14/20 08:58 Aspirin 81 Mg PO 81 mg DAILY MOLLY Administration Atorvastatin Calcium 40 mg 07/12/20 21:00 07/14/20 20:21 Atorvastatin 40 Mg Tab PO 40 mg HS MOLLY Administration Budesonide/Formoterol Fumarate 2 puff 07/13/20 20:00 07/14/20 19:37 Symbicort 160-4.5 Mcg Inhaler INHALATION Not Given RT-BID MOLLY Famotidine 10 mg 07/13/20 21:00 07/14/20 20:21 Famotidine 20 Mg Tab PO 10 mg BID MOLLY Administration Furosemide 20 mg 07/14/20 16:00 07/14/20 15:42 Furosemide 20 Mg Tab PO Not Given 0900,1600 [facility] Heparin Sodium (Porcine) 5,000 unit 07/13/20 09:00 07/14/20 20:21 Heparin Sodium,Porcine 5,000 Unit/Ml 1 Ml Vial SQ 5,000 unit Q12HR MOLLY Administration Hydralazine HCl 50 mg 07/14/20 21:00 07/14/20 20:21 Hydralazine Hcl 25 Mg Tab PO 50 mg BID MOLLY Administration Ipratropium [place] 0.5 mg 07/13/20 12:00 07/14/20 19:37 Ipratropium 0.5 Mg/2.5 Ml Nebu INHALATION Not Given RT-QID MOLLY Isosorbide Mononitrate 30 mg 07/13/20 09:15 07/14/20 08:58 Isosorbide Mononitrate Er 30 Mg Tab.Er.24h PO 30 mg DAILY MOLLY Administration Metoprolol Tartrate 25 mg 07/12/20 21:00 07/14/20 20:21 Metoprolol Tartrate 25 Mg Tab PO 25 mg BID MOLLY Administration Nitroglycerin 0.4 mg 07/12/20 14:34 Nitroglycerin Sl Tabs 0.4 Mg Tab SUBLINGUAL Q5M PRN Chest Pain Tamsulosin HCl 0.4 mg 07/13/20 09:00 07/14/20 08:58 Tamsulosin 0.4 Mg Cap.Er.24h PO 0.4 mg DAILY MOLLY Administration Objective - Vital Signs Vital signs: Vital Signs Temp 97.6 F 07/14/20 16:00 Pulse 80 07/14/20 16:22 Resp 18 07/14/20 16:00 BP 156/81 07/14/20 16:00 Pulse Ox 97 07/14/20 16:00 Intake & Output 07/14/20 07/14/20 07/15/20 06:59 18:59 06:59 Intake Total 475 1040 Output Total 300 Balance 175 1040 Weight 70.7 kg Intake: Oral 475 1040 Output: Urine 300 Other: Voiding Method Urinal - Exam GENERAL: The patient is alert and oriented x3, not in any acute distress. Well developed, well nourished. HEENT: Pupils are round and equally reacting to light. EOMI. No scleral icterus. No conjunctival pallor. Normocephalic, atraumatic. No pharyngeal erythema. No thyromegaly. CARDIOVASCULAR: S1 and S2 present. No murmurs, rubs, or gallops. PULMONARY: Chest is clear to auscultation, no wheezing or crackles. ABDOMEN: Soft, nontender, nondistended, normoactive bowel sounds. No palpable organomegaly. MUSCULOSKELETAL: No joint swelling or deformity. EXTREMITIES: No cyanosis, clubbing, or pedal edema. NEUROLOGICAL: Gross neurological examination did not reveal any focal deficits. SKIN: No rashes. no petechiae. - Labs CBC & Chem 7: 07/12/20 12:28 07/14/20 07:08 Labs: Abnormal Lab Results - Last 24 Hours (Table) 07/14/20 Range/Units 07:08 Sodium 136 L (137-145) mmol/L BUN 50 H (9-20) mg/dL Creatinine 2.36 H (0.66-1.25) mg/dL Glucose 206 H (74-99) mg/dL Microbiology - Last 24 Hours (Table) 07/12/20 12:42 Blood Culture - Preliminary Blood No Growth after 48 hours 07/12/20 12:48 Blood Culture - Preliminary Blood No Growth after 24 hours Assessment and Plan Assessment: Ongoing Chronic dyspnea for 2 years worsening the last year, with with coughing and yellowish phlegm . It might have some acute component related to his heart or lung disease Suspect acute on chronic systolic CHF Possible elements of coronary artery disease given his risk factors, animal anatomist recommended medical therapy COPD for some acute exacerbation is suspected Nicotine dependence Hypertension Chronic kidney disease, stage 3-4 History of TIA History of GERD Benign prostatic hypertrophy Plan: This is a pleasant 89 years old male who presents with ongoing dyspnea on coughing with dizziness. Cardiology evaluated the patient and recommended medical therapy with no intervention at the adjusted his hydralazine and Lopressor for better control of his high blood pressure. Also will continue with aspirin and Lipitor. Pulmonary evaluation is requested from emergency room. Change IV Lasix to oral dose iv daily Labs and medication were reviewed.. Continue same treatment. Continue with symptomatic treatment. Resume home medication. Monitor lytes and vitals. DVT and GI prophylaxis. Further recommendations as per clinical course of the patient DVT prophylaxis: Subcutaneous heparin GI Prophylaxis: Pepcid PT/OT: Pending Prognosis is guarded
[2020-07-15 08:15] LABS: Calcium 8.9 mg/dL (8.4-10.2); Magnesium 2.4 mg/dL (1.6-2.3); Potassium 4.6 mmol/L (3.5-5.1)
[2020-07-15] MEDS: SYMBICORT 160-4.5 MCG INHALER INHALATION SCH (08:51)
[2020-07-15] MEDS: IPRATROPIUM-ALBUTEROL 3 ML NEB INHALATION PRN ×2 (08:51→12:11)
[2020-07-15] MEDS: IPRATROPIUM 0.5 MG/2.5 ML NEBU INHALATION SCH ×2 (08:52→12:11)
[2020-07-15] MEDS: FUROSEMIDE 20 MG TAB PO SCH (09:41)
[2020-07-15] MEDS: HEPARIN SODIUM,PORCINE 5,000 UNIT/ML 1 ML VIAL SQ SCH (09:41)
[2020-07-15] MEDS: ISOSORBIDE MONONITRATE ER 30 MG TAB.ER.24H PO SCH (09:44)
[2020-07-15] MEDS: hydrALAZINE HCL 25 MG TAB PO SCH (09:44)
[2020-07-15] MEDS: ASPIRIN 81 MG PO SCH (09:44)
[2020-07-15] MEDS: TAMSULOSIN 0.4 MG CAP.ER.24H PO SCH (09:44)
[2020-07-15] MEDS: FAMOTIDINE 20 MG TAB PO SCH (09:44)
[2020-07-15] MEDS: METOPROLOL TARTRATE 25 MG TAB PO SCH (09:44)
--- NOTE | 2020-07-15 11:19 | P.PN ---
Subjective Progress Note Date: 07/15/20 Principal diagnosis: Shortness of breath, chest pain. 89-year-old male who presents to the emergency department on 07/12/2020, complaining of shortness of breath. The patient has a history of underlying COPD. He isn't smoking since the age of 18. At 73 years, 1-2 packs a day. He also apparently carries with him a diagnosis of hypertension, and apparently also was complaining of elevated blood pressure when the patient came into the emergency department. The patient apparently had seen his medical doctor and/or his corporate trust officer earlier in the day. He was told to come to the hospital to be evaluated. He denies any cough, or wheezing. He denies any phlegm production. He also denies any nausea, vomiting, abdominal pain, or diarrhea. He also denies any genitourinary complaints. He was seen by Dr. Smith emergency department, admitted with a diagnosis of COPD exacerbation, elevated troponin, and EKG changes. Currently on room air, his saturation is 97%. His chest x-ray did not show any acute cardiopulmonary abnormality. His white count is 9.4, hemoglobin 12.1, hematocrit 36.1, and platelet count 249,000. PT/INR and PTT all normal. D-dimer is 0.73. Sodium 137, potassium 5.4, chlorides 103, CO2 21, anion gap 13, with a BUN of 37 and a creatinine of 1.91. Troponin was 0.077, an N- terminal proBNP was 10,900. Coronavirus testing was negative. Progress note dated 07/14/2020. 89-year-old male seen yesterday in consultation. He came into the emergency d epartment on 07/12, complaining of shortness of breath. He does have a history of underlying COPD. He's been smoking 73 years, 1-2 packs a day. Also, the patient had an elevated blood pressure, and was sent in by his corporate trust officer. He does have a history of essential hypertension. Currently doing much better. Feeling much better. Denies any shortness of breath at this time. He also denies any chest pain or chest discomfort. From the pulmonary standpoint, the patient stable and could be discharged, though it appears that cardiology would like patient to stay in the hospital for a bit longer. The patient denies any sputum production. He denies any fever or chills. He denies any nausea, vomiting, or diarrhea. His saturations on 1 L is 99%. Temperature is 98.2. Blood pressure 139/65 with a mean of 89. Sodium 136, potassium 4.5, chlorides 103, CO2 22, anion gap 11, and BUN/creatinine are 50 and 2.36, respectively. Progress note dated 07/15/2020. 89-year-old male, seen in consultation at couple days ago. He came into the emergency department on 07/12, complaining of shortness of breath. The patient does have a history of suspected underlying COPD. He did smoke 73 years, at one to 2 packs a day. The patient was mostly admitted because of abnormal blood pressure. He does have a history of essential hypertension. He was apparently being seen by his corporate trust officer, and sent to the ER because of elevated blood pressure. Currently he is doing better. He denies any shortness of breath. He is feeling much better. He also denies any chest pain or chest discomfort. From the pulmonary standpoint, he stable. He is on room air, and his saturations are in the mid 90s. On 1 L, he was 99%. Temperature is 97.2, heart rate 80, respiratory rate 18, and blood pressure 154/63, with a mean of 93. Currently, his sodium is 139, potassium 4.6, Chlorides are 106, and CO2 26. Anion gap is 7. BUN 57, and creatinine 2.17. Blood cultures are negative. No recent x-rays to review. Objective - Vital Signs Vital signs: Vital Signs Temp 97.2 F L 07/15/20 08:00 Pulse 80 07/15/20 09:06 Resp 18 07/15/20 08:00 BP 154/63 07/15/20 08:00 Pulse Ox 94 L 07/15/20 08:00 Intake & Output 07/14/20 07/15/20 07/15/20 18:59 06:59 18:59 Intake Total 1040 Balance 1040 Weight 70.7 kg 71 kg Intake: Oral 1040 Other: Voiding Method Toilet Toilet Urinal Urinal - Exam No acute distress, oriented 3. Currently on room air, with saturations in the mid 90s. No conversational dyspnea, or audible wheezing. HEENT examination is grossly unremarkable. Mucous membranes are moist. No oral lesions. Neck supple. Full range of motion. No adenopathy thyromegaly or neck vein distention. Cardiovascular examination reveals regular rhythm rate. S1-S2 normal. No S3 or S4. No discernible murmur noted. Heart rate is 80 bpm. Lungs reveal mostly clear breath sounds. A few scattered rhonchi. No wheezes or crackles. Breath sounds equal bilaterally but diminished throughout. Abdomen soft bowel sounds are heard. No masses or tenderness. Extremities are intact. No cyanosis clubbing or edema. Skin is without rash or lesion. Neurologic examination is brief but nonfocal. - Labs CBC & Chem 7: 07/12/20 12:28 07/15/20 07:00 Labs: Abnormal Lab Results - Last 24 Hours (Table) 07/15/20 Range/Units 07:00 BUN 57 H (9-20) mg/dL Creatinine 2.17 H (0.66-1.25) mg/dL Glucose 136 H (74-99) mg/dL Magnesium 2.4 H (1.6-2.3) mg/dL Microbiology - Last 24 Hours (Table) 07/12/20 12:42 Blood Culture - Preliminary Blood No Growth after 48 hours 07/12/20 12:48 Blood Culture - Preliminary Blood No Growth after 24 hours Assessment and Plan Assessment: Shortness of breath, likely multifactorial, in part related to systolic heart failure, as well as mild COPD exacerbation. Mild troponin leak, likely related to supply/demand mismatch. Prior history of severe tobacco use/abuse, 71 years of smoking. Recent tobacco cessation, May 2020. History of cardiomyopathy. Essential hypertension. History of TIA. Chronic kidney disease. Peripheral vascular occlusive disease, status post right carotid endarterectomy. History of underlying COPD, although patient has never seen a lung doctor. Plan: Plan dated 07/15/2020. Currently, the patient's on Symbicort 160/4.5, 2 puffs twice a day, and albuterol sulfate mixed with Atrovent, 4 times a day and when necessary. The patient should go home on Symbicort and updrafts with DuoNeb. He should follow up with us in the office. The patient will need a outpatient pulmonary function test, and a 6 minute walk distance. Additional, additional recommendations and suggestions are forthcoming. I'm not sure the patient will be discharged home today. Certainly from the pulmonary standpoint, the patient is stable. We do encourage follow-up once he gets home. He did smoke 71 years at 1-2 packs a day. He likely has underlying COPD. The severity, is yet to be determined. Time with Patient: Less than 30
--- NOTE | 2020-07-15 12:37 | PN ---
PROGRESS NOTE Mr. Duong is an 89-year-old male who presented with worsening dyspnea. He has a history of chronic tobacco use. He was noted to have severe cardiomyopathy of unknown duration or etiology. He is feeling much better today, anxious to go home. He denies any chest pain. He denies any dizziness or palpitation. He denies any nausea. He continues to be at this time on aspirin once a day, Lipitor 40 mg daily, Lasix 20 mg orally twice a day, hydralazine 50 mg twice a day, isosorbide mononitrate 30 mg daily, metoprolol tartrate 25 mg twice a day. PHYSICAL EXAMINATION: VITAL SIGNS: Blood pressure running in the 120s with a heart rate in 70s. LUNGS: With decreased air exchange, no wheezes. HEART: Regular rate and rhythm, S1, S2. No S3. No rub. ABDOMEN: Soft, nontender. EXTREMITIES: No edema. LAB DATA: Lab data revealed BUN and creatinine 57 and 2.17. Hemoglobin of 4.6. His sodium is 139. IMPRESSION: 1. Symptoms of progressive dyspnea with a combination of congestive heart failure with systolic dysfunction and chronic obstructive pulmonary disease. 2. Chronic tobacco use. 3. History of hypertension. 4. Chronic kidney disease. RECOMMENDATION: Patient may be able to be discharged home soon and followed as an outpatient. MMODL / IJN: [id number] /
[2020-07-15 13:01] VITALS: BP 143/65; PULSE 77; TEMP 98
--- NOTE | 2020-07-15 22:09 | P.DS ---
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 He follows up in the [facility] clinic Patient states that he went to his MI clinic 2 days ago for routine follow-up appointment and he did EKG for him and he does not know why and they sent him to the hospital Patient noticed to be tachypneic while at rest however patient states this is not new for him and his been have been dyspneic for the last 2 years getting worse over the last year. Last May he decided to quit, usually he smokes 1- 1.5 pack per day, thinking that might help him with his breathing. Echocardiogram: Ejection fraction is 20-25%, compared to 55-60% in 2016 Patient was diagnosed with acute systolic CHF. Patient has been evaluated by electronic scale assembler and tester and binder operator, he was placed on Lasix IV 20 mg twice a day, and within 24 hours first dyspnea is completely resolved and he is breathing quietly better than before. Patient remains asymptomatic with no chest pain or coughing or abdominal or urinary complaints. No fever Fleet Dispatch Manager switch his Lasix to 20 mg twice a day. Creatinine slightly elevated but grimaces table about 1.9-2.3 and an discharge was 2.1 His blood pressure and vitals are stable Computer Network And Systems Engineer also cleared him for discharge with recommendation for outpatient pulmonary function test Patient was feeling stable to go home from yesterday and electronic scale assembler and tester within 24 hours for further monitoring with no change in his clinical situation and today he can be cleared by both cardiology and pulmonary Problems and management plan were discussed with the patient and he verbalized understanding and acceptance Patient was found stable and can be discharged home however he needs follow-up as an outpatient. [facility] and patient agrees. The patient was instructed to follow up with Dr. Carpenter the electronic scale assembler and tester and Dr. Burrows binder operator in 1-2 weeks and he agrees to call and make appointment as today is weekend Physical exam Gen: patient is a AAOx3, no distress CVS: S1-S2, RRR, no murmur Lungs: B/L CTA, no wheezing Abdomen: soft, no distention, no tenderness, positive bowel sounds Extremity: no leg edema or induration Time spent more than 35 minutes Patient Condition at Discharge: Serious Plan - Discharge Summary Discharge Rx Participant: No New Discharge Prescriptions: New hydrALAZINE HCL [Apresoline] 50 mg PO BID #60 tab Aspirin 81 mg PO DAILY #30 chew Isosorbide Mononitrate ER [Imdur] 30 mg PO DAILY #30 tab.er.24h Furosemide [Lasix] 20 mg PO 0900,1600 #60 tab Atorvastatin [Lipitor] 40 mg PO HS #30 tab Metoprolol Tartrate [Lopressor] 25 mg PO BID #60 tab Nitroglycerin Sl Tabs [Nitrostat] 0.4 mg SUBLINGUAL Q5M PRN #30 tab PRN Reason: Chest Pain Budesonide-Formot 160-4.5 Mcg [Symbicort 160-4.5 Mcg Inhaler] 2 puff INHALATION BID #1 bottle Albuterol Inhaler [Ventolin Hfa Inhaler] 1 puff INHALATION RT-QID PRN #1 bottle PRN Reason: Shortness Of Breath Or Wheezing Continue Tamsulosin [Flomax] 0.4 mg PO DAILY Tiotropium 2.5 Mcg/Puff [Spiriva Respimat 2.5 Mcg] 1 puff INHALATION RT-BID Omeprazole 20 mg PO DAILY PRN PRN Reason: Gi Upset Metoprolol Tartrate [Lopressor] 25 mg PO DIRECTED Discontinued hydrALAZINE HCL 25 mg PO DAILY PRN PRN Reason: Blood Pressure - High hydrALAZINE HCL 25 mg PO DAILY Discharge Medication List Tamsulosin [Flomax] 0.4 mg PO DAILY 03/18/16 [History] Metoprolol Tartrate [Lopressor] 25 mg PO DIRECTED 07/12/20 [History] Omeprazole 20 mg PO DAILY PRN 07/12/20 [History] Tiotropium 2.5 Mcg/Puff [Spiriva Respimat 2.5 Mcg] 1 puff INHALATION RT-BID 07/12/20 [History] Albuterol Inhaler [Ventolin Hfa Inhaler] 1 puff INHALATION RT-QID PRN #1 bottle 07/15/20 [Rx] Aspirin 81 mg PO DAILY #30 chew 07/15/20 [Rx] Atorvastatin [Lipitor] 40 mg PO HS #30 tab 07/15/20 [Rx] Budesonide-Formot 160-4.5 Mcg [Symbicort 160-4.5 Mcg Inhaler] 2 puff INHALATION BID #1 bottle 07/15/20 [Rx] Furosemide [Lasix] 20 mg PO 0900,1600 #60 tab 07/15/20 [Rx] Isosorbide Mononitrate ER [Imdur] 30 mg PO DAILY #30 tab.er.24h 07/15/20 [Rx] Metoprolol Tartrate [Lopressor] 25 mg PO BID #60 tab 07/15/20 [Rx] Nitroglycerin Sl Tabs [Nitrostat] 0.4 mg SUBLINGUAL Q5M PRN #30 tab 07/15/20 [Rx] hydrALAZINE HCL [Apresoline] 50 mg PO BID #60 tab 07/15/20 [Rx] Follow up Appointment(s)/Referral(s): Joao Thapa MD [STAFF PHYSICIAN] - 2 Weeks (*Please call on Friday to schedule your appointment.*) Haim Burrows DO [Doctor of Osteopathic Medicine] - 2 Weeks (you will need pulmonary functiont test *Please call on Friday to schedule your appointment.*) Harley Carter MD [STAFF PHYSICIAN] - (Follow up with Dr. Christi Davis's associate.) [facility] [Primary Care Provider] - 1-2 days (*Please call on Friday to schedule your appointment*) Patient Instructions/Handouts: COPD (Chronic Obstructive Pulmonary Disease) (DC), Chronic Hypertension (DC) Activity/Diet/Wound Care/Special Instructions: heart healthy diet activity is restricted till you see your doctor Discharge Disposition: HOME WITH HOME HEALTH SERVICES
== END 2020-07-15 15:08 | disposition home health service (06) | DRG 291 ==
LOC: EC 11:42 → 3SCARD 14:35
PROVIDERS: ADMIT Internal Medicine; ATTEND Internal Medicine
DX: I13.0 Hypertensive heart and chronic kidney disease with heart failure and stage 1 through stage 4 chronic kidney disease, or unspecified chronic kidney disease (principal); I50.23 Acute on chronic systolic (congestive) heart failure; J44.1 Chronic obstructive pulmonary disease with (acute) exacerbation; N18.4 Chronic kidney disease, stage 4 (severe); E87.2 Acidosis; I24.8 Other forms of acute ischemic heart disease; I42.9 Cardiomyopathy, unspecified; I44.7 Left bundle-branch block, unspecified; I73.9 Peripheral vascular disease, unspecified; N40.0 Benign prostatic hyperplasia without lower urinary tract symptoms; T50.1X5A Adverse effect of loop [high-ceiling] diuretics, initial encounter; I34.0 Nonrheumatic mitral (valve) insufficiency; Z87.891 Personal history of nicotine dependence; Z79.82 Long term (current) use of aspirin; Z79.899 Other long term (current) drug therapy; Z83.3 Family history of diabetes mellitus; K21.9 Gastro-esophageal reflux disease without esophagitis; Z86.73 Personal history of transient ischemic attack (TIA), and cerebral infarction without residual deficits; Z83.6 Family history of other diseases of the respiratory system; I49.3 Ventricular premature depolarization; R00.0 Tachycardia, unspecified; Z20.822 Contact with and (suspected) exposure to COVID-19; Z98.42 Cataract extraction status, left eye; Z98.41 Cataract extraction status, right eye; Z96.1 Presence of intraocular lens; Z88.8 Allergy status to other drugs, medicaments and biological substances
CPT/HCPCS: 36415; 71046; 80048; 80053; 80061; 81001; 83605; 83735; 83880; 84484; 85025; 85379; 85610; 85730; 87040; 87635; 93005; 93306; 94640; 94760; 96374; 99285

== ENCOUNTER 2020-07-20 15:20 | Inpatient (IN) | payer OTHER, MEDICARE ==
[2020-07-20] MEDS ORDERED: ASPIRIN 81 MG PO STA (15:42)
[2020-07-20] MEDS ORDERED: HEPARIN SODIUM,PORCINE 5,000 UNIT/ML 1 ML VIAL IV ONE (15:42)
[2020-07-20] MEDS ORDERED: ATORVASTATIN 80 MG TAB PO STA (15:42)
[2020-07-20] MEDS ORDERED: MORPHINE SULFATE 4 MG/ML SYRINGE IVP STA (15:43)
[2020-07-20] MEDS ORDERED: ONDANSETRON 4 MG/2 ML VIAL IVP STA (15:43)
--- NOTE | 2020-07-20 15:44 | ED ---
Chest Pain HPI - General Chief Complaint: Chest Pain Stated Complaint: Vomiting Time Seen by Provider: 07/20/20 15:25 Source: patient Mode of arrival: wheelchair Limitations: no limitations - History of Present Illness Initial Comments: Patient is an 89-year-old male with past history of CVA, COPD, chronic kidney disease who presents emergency Department with reported chest pain. Patient was hospitalized at our facility from July 12 through the . At that time he had shortness of breath and was found to have an EF of 20%. He is evaluated by cardiology and they recommended medical management. Patient reports that he was discharged home and last night the pain returned. He describes it as a squeezing chest pain with associated nausea and vomiting. Patient also admits to shortness of breath. Patient arrives and does have an episode of emesis in the triage pérez. Upon placement into room 10 the patient reports to 2 out of 10 chest pain. Denies a fevers or chills. No cough. No lower extremity swelling. No alleviating, precipitating or modifying factors - Related Data Home Medications Medication Instructions Recorded Confirmed Tamsulosin [Flomax] 0.4 mg PO DAILY 03/18/16 07/20/20 Omeprazole 20 mg PO DAILY PRN 07/12/20 07/20/20 Tiotropium 2.5 Mcg/Puff [Spiriva 1 puff INHALATION RT-BID 07/12/20 07/20/20 Respimat 2.5 Mcg] Budesonide-Formot 160-4.5 Mcg 2 puff INHALATION RT-BID 07/20/20 07/20/20 [Symbicort 160-4.5 Mcg Inhaler] Furosemide [Lasix] 20 mg PO DAILY@0900,1600 07/20/20 07/20/20 Previous Rx's Medication Instructions Recorded Albuterol Inhaler [Ventolin Hfa 1 puff INHALATION RT-QID PRN #1 07/15/20 Inhaler] bottle Aspirin 81 mg PO DAILY #30 chew 07/15/20 Atorvastatin [Lipitor] 40 mg PO HS #30 tab 07/15/20 Isosorbide Mononitrate ER [Imdur] 30 mg PO DAILY #30 tab.er.24h 07/15/20 Metoprolol Tartrate [Lopressor] 25 mg PO BID #60 tab 07/15/20 Nitroglycerin Sl Tabs [Nitrostat] 0.4 mg SUBLINGUAL Q5M PRN #30 tab 07/15/20 hydrALAZINE HCL [Apresoline] 50 mg PO BID #60 tab 07/15/20 Allergies Allergy/AdvReac Type Severity Reaction Status Date / Time sulfur dioxide Allergy Unknown Verified 07/20/20 16:24 Review of Systems ROS Statement: Those systems with pertinent positive or pertinent negative responses have been documented in the HPI. ROS Other: All systems not noted in ROS Statement are negative. EKG Findings - EKG Comments: EKG Findings:: EKG done and [address] segment elevation in 2, 3, aVF with depression in V2 through V5. Past Medical History Past Medical History: COPD, CVA/TIA, GERD/Reflux, Hypertension, Prostate Disorder, Renal Disease Additional Past Medical History / Comment(s): TIAs, BPH, CKD, neuropathy bilateral hands History of Any Multi-Drug Resistant Organisms: None Reported Past Surgical History: Heart Catheterization, Hernia Repair Additional Past Surgical History / Comment(s): R caratid endartectomy, bilateral cataracts removed/lens implants, cardiac cath-normal, R inguinal hernia repair, colonoscopy. Past Anesthesia/Blood Transfusion Reactions: No Reported Reaction Past Psychological History: No Psychological Hx Reported Smoking Status: Current some day smoker Past Alcohol Use History: None Reported Past Drug Use History: None Reported - Past Family History Mother Family Medical History: Diabetes Mellitus Additional Family Medical History / Comment(s): Mother lived to be 86yrs old. Father Family Medical History: Respiratory Disorder Additional Family Medical History / Comment(s): Father worked in the coal [employer] and had black lung. He at the age of 78yrs. General Exam Limitations: no limitations General appearance: alert, in no apparent distress Head exam: Present: atraumatic, normocephalic, normal inspection Eye exam: Present: normal appearance, PERRL, EOMI. Absent: scleral icterus, conjunctival injection, periorbital swelling ENT exam: Present: normal exam, mucous membranes moist Neck exam: Present: normal inspection. Absent: tenderness, meningismus, lymphadenopathy Respiratory exam: Present: normal lung sounds bilaterally. Absent: respiratory distress, wheezes, rales, rhonchi, stridor Cardiovascular Exam: Present: normal rhythm, tachycardia, normal heart sounds. Absent: systolic murmur, diastolic murmur, rubs, gallop, clicks GI/Abdominal exam: Present: soft, normal bowel sounds. Absent: distended, tenderness, guarding, rebound, rigid Extremities exam: Present: normal inspection, full ROM, normal capillary refill. Absent: tenderness, pedal edema, joint swelling, calf tenderness Back exam: Present: normal inspection Neurological exam: Present: alert, oriented X3, CN II-XII intact Psychiatric exam: Present: normal affect, normal mood Skin exam: Present: warm, dry, intact, normal color. Absent: rash Course Vital Signs 07/20/20 07/20/20 15:22 16:00 Temperature 97.7 F Pulse Rate 110 H 80 Respiratory 18 18 Rate Blood Pressure 211/94 203/114 O2 Sat by Pulse 97 100 Oximetry - Reevaluation(s) Reevaluation #1: Code stroke activated 07/20/20 15:48 Reevaluation #2: Spoke with Dr. French 07/20/20 6203 Reevaluation #3: Dr. French at bedside discussing risks and benefits of procedure with patient and daughter 07/20/20 16:02 Reevaluation #4: Patient taken to laboratory apparatus glass blower #3 after agreeable to procedure 07/20/20 16:11 Chest Pain MDM - MDM Upon arrival patient is placed into room 10. A thorough history and physical exam was performed. A 12-lead EKG was performed which does demonstrate ST segment elevation in the inferior leads with reciprocal changes in the anterior lateral leads. Because of this, STEMI alert is activated. IV is established and laboratory studies are drawn. Patient was given formula grams of morphine, 4 chewable 81 mg aspirins, 4 mg of Zofran and 4000 units of heparin. The patient has no contraindication to anticoagulation. The family does demonstrate some reservations in regards to having a cath performed as they were told during previous admission that the patient would have issues due to his chronic kidney disease. The risks and benefits were discussed with the patient and his daughter. Dr. French does present to the bedside and additionally discussed the risks and benefits. Patient does overall agreed to the risks of catheterization. The patient does report to improvement in his pain prior to transfer upstairs. I spoke with Dr. Valadez in regards to the patient's condition. He did accept admission for the patient. He was then taken to Microphone Boom Operator 3 in stable condition Disposition Clinical Impression: ST elevation myocardial infarction (STEMI) Disposition: ADMITTED IP TO THIS [facility] Condition: Serious Is patient prescribed a controlled substance at d/c from ED?: No Decision to Admit Reason: Admit from EC Decision Date: 07/20/20 Decision Time: 16:13
--- NOTE | 2020-07-20 15:57 | XR ---
EXAMINATION TYPE: XR chest 1V DATE OF EXAM: 07/20/2020 COMPARISON: Chest x-ray July 12, 2020 HISTORY: Chest pain. ST elevated myocardial infarction. TECHNIQUE: Single frontal view of the chest is obtained. FINDINGS: There is chronic parenchymal changes bilaterally without suspicious focal air space opacit y, pleural effusion, or pneumothorax seen. The cardiac silhouette size is stable and upper limits of normal. The osseous structures are demineralized. IMPRESSION: Chronic changes without acute pulmonary process.
[2020-07-20] MEDS ORDERED: NALOXONE 0.4 MG/ML 1 ML VIAL IV PRN (16:14)
--- NOTE | 2020-07-20 16:21 | P.CRDCN ---
History of Present Illness History of present illness: HISTORY OF PRESENTING ILLNESS This is a pleasant 89-year-old male past medical history significant for hypertension, hyperlipidemia, recent non-STEMI, TIA, CAD, PAD status post right carotid endarterectomy, COPD and former tobacco abuse who presents secondary to chest pain. He was recently hospitalized 07/12/2020 with mildly elevated troponins, non-STEMI and recommendation was for medical therapy at that time given his CAD. He went home and then had recurrence of his chest pain which was more persistent. An echocardiogram was performed which showed cardiomyopathy with ejection fraction 20-25% and anterior wall hypokinesis. EKG shows sinus rhythm, normal axis, inferior ST elevation with reciprocal changes in the lateral and anterior leads. REVIEW OF SYSTEMS At the time of my exam: CONSTITUTIONAL: Denies fever or chills. CARDIOVASCULAR: +chest pain, + MILD shortness of breath, NO orthopnea, PND or palpitations. RESPIRATORY: Denies cough. GASTROINTESTINAL: Denies abdominal pain, diarrhea, constipation, nausea or vomiting. MUSCULOSKELETAL: Denies myalgias. NEUROLOGIC: Denies numbness, tingling or weakness. ENDOCRINE: Denies fatigue, weight change, polydipsia or polyurina. GENITOURINARY: Denies burning, hematuria or urgency with micturation. HEMATOLOGIC: Denies history of anemia or bleeding. PHYSICAL EXAMINATION CONSTITUTIONAL: Mild distress, elderly appearing HEENT: Head is normocephalic. Pupils are equal, round. Sclerae anicteric. Mucous membranes of the mouth are moist. No JVD. No carotid bruit. CHEST EXAMINATION: Lungs are clear to auscultation. No chest wall tenderness is noted on palpation or with deep breathing. HEART EXAMINATION: Regular rate and rhythm. S1, S2 heard. No murmurs, gallops or rub. ABDOMEN: Soft, nontender. Positive bowel sounds. EXTREMITIES: 2+ peripheral pulses, no lower extremity edema and no calf tenderness. NEUROLOGIC EXAMINATION: Patient is awake, alert and oriented x3. ASSESSMENT 1. Inferior STEMI 2. 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 Chronic kidney disease 4. Hypertension uncontrolled 5. Prior history of tobacco abuse 6. COPD 7. PAD with prior carotid endarterectomy PLAN Discussed risks and benefits of heart catheterization and possible PCI. With patient and daughter. Both are in agreement. We will proceed with emergency heart catheterization. Past Medical History Past Medical History: COPD, CVA/TIA, GERD/Reflux, Hypertension, Prostate Disorder, Renal Disease Additional Past Medical History / Comment(s): TIAs, BPH, CKD, neuropathy bilateral hands History of Any Multi-Drug Resistant Organisms: None Reported Past Surgical History: Heart Catheterization, Hernia Repair Additional Past Surgical History / Comment(s): R caratid endartectomy, bilateral cataracts removed/lens implants, cardiac cath-normal, R inguinal hernia repair, colonoscopy. Past Anesthesia/Blood Transfusion Reactions: No Reported Reaction Past Psychological History: No Psychological Hx Reported Smoking Status: Current some day smoker Past Alcohol Use History: None Reported Past Drug Use History: None Reported - Past Family History Mother Family Medical History: Diabetes Mellitus Additional Family Medical History / Comment(s): Mother lived to be 86yrs old. Father Family Medical History: Respiratory Disorder Additional Family Medical History / Comment(s): Father worked in the [employer] and had black lung. He at the age of 78yrs. Medications and Allergies Home Medications Medication Instructions Recorded Confirmed Type Tamsulosin [Flomax] 0.4 mg PO DAILY 03/18/16 07/12/20 History Metoprolol Tartrate [Lopressor] 25 mg PO DIRECTED 07/12/20 07/12/20 History Omeprazole 20 mg PO DAILY PRN 07/12/20 07/12/20 History Tiotropium 2.5 Mcg/Puff [Spiriva 1 puff INHALATION RT-BID 07/12/20 07/12/20 History Respimat 2.5 Mcg] Albuterol Inhaler [Ventolin Hfa 1 puff INHALATION RT-QID PRN #1 07/15/20 Rx Inhaler] bottle Aspirin 81 mg PO DAILY #30 chew 07/15/20 Rx Atorvastatin [Lipitor] 40 mg PO HS #30 tab 07/15/20 Rx Budesonide-Formot 160-4.5 Mcg 2 puff INHALATION BID #1 bottle 07/15/20 Rx [Symbicort 160-4.5 Mcg Inhaler] Furosemide [Lasix] 20 mg PO 0900,1600 #60 tab 07/15/20 Rx Isosorbide Mononitrate ER [Imdur] 30 mg PO DAILY #30 tab.er.24h 07/15/20 Rx Metoprolol Tartrate [Lopressor] 25 mg PO BID #60 tab 07/15/20 Rx Nitroglycerin Sl Tabs [Nitrostat] 0.4 mg SUBLINGUAL Q5M PRN #30 tab 07/15/20 Rx hydrALAZINE HCL [Apresoline] 50 mg PO BID #60 tab 07/15/20 Rx Allergies Allergy/AdvReac Type Severity Reaction Status Date / Time sulfur dioxide Allergy Unknown Verified 07/20/20 15:26 Physical Exam Vitals: Vital Signs Temp Pulse Resp BP Pulse Ox 07/20/20 15:22 97.7 F 110 H 18 211/94 97 Intake and Output 07/20/20 07/20/20 07/20/20 06:59 14:59 22:59 Other: Weight 70.307 kg Results Current Medications Generic Name Dose Route Start Last Admin Trade Name Freq PRN Reason Stop Dose Admin Naloxone HCl 0.2 mg 07/20/20 16:14 Naloxone 0.4 Mg/Ml 1 Ml Vial IV Q2M PRN Opioid Reversal Intake and Output 07/20/20 07/20/20 07/20/20 06:59 14:59 22:59 Other: Weight 70.307 kg Patient Weight 07/21/20 06:59 Weight 70.307 kg
[2020-07-20 16:22] LABS: Basophils % (A) 0 %; Eosinophils # (A) 0.8 k/uL (0-0.7); Eosinophils % (A) 7 %; HCT 37.4 % (39.0-53.0); HGB 12.2 gm/dL (13.0-17.5); Lymphocytes # (A) 1.2 k/uL (1.0-4.8); Lymphocytes % (A) 10 %; MCH 29.9 pg (25.0-35.0); MCHC 32.5 g/dL (31.0-37.0); Mean Platelet Volume 8.1; Monocytes # (A) 0.6 k/uL (0-1.0); Monocytes % (A) 5 %; Neutrophils # (A) 9.8 k/uL (1.3-7.7); Neutrophils % (A) 78 %; Platelet Count 279 k/uL (150-450); RBC 4.07 m/uL (4.30-5.90); RDW 13.3 % (11.5-15.5); WBC 12.6 k/uL (3.8-10.6)
[2020-07-20] MEDS ORDERED: MIDAZOLAM 2 MG/2 ML VIAL IVP ONE (16:24)
[2020-07-20] MEDS ORDERED: LIDOCAINE 1% INJ 10MG/ML (20 ML MDV) SQ ONE (16:24)
[2020-07-20] MEDS ORDERED: HEPARIN SODIUM 1,000 UN/ML (10ML VL) IV ONE ×2 (16:26→16:40)
[2020-07-20] MEDS ORDERED: VERAPAMIL SYRINGE (5 MG/10 ML) INTRAARTER ONE (16:26)
[2020-07-20 16:33] LABS: Partial Thromboplastin Time 61.9 sec (22.0-30.0); Prothrombin Time 10.6 sec (9.0-12.0)
[2020-07-20 16:40] LABS: Albumin 4.2 g/dL (3.5-5.0); Calcium 9.7 mg/dL (8.4-10.2); Magnesium 2.4 mg/dL (1.6-2.3); Potassium 4.4 mmol/L (3.5-5.1); Total Bilirubin 0.6 mg/dL (0.2-1.3); Total Protein 7.6 g/dL (6.3-8.2)
[2020-07-20] MEDS ORDERED: IV FLUID CONTINUATION 500 ML IV ONE (16:40)
[2020-07-20] MEDS ORDERED: CLOPIDOGREL 75 MG TAB ONE (16:41)
[2020-07-20] MEDS ORDERED: CLOPIDOGREL 75 MG TAB PO ONE (16:45)
[2020-07-20] MEDS ORDERED: ONDANSETRON 4 MG/2 ML VIAL ONE (16:46)
[2020-07-20] MEDS ORDERED: ONDANSETRON 4 MG/2 ML VIAL IVP ONE (16:48)
[2020-07-20] MEDS ORDERED: IOPAMIDOL-370 125ML BTL INJ ONE (17:14)
[2020-07-20] MEDS ORDERED: RX INFO: IV CONTRAST WAS GIVEN 1 EACH MISC MISCELLANE PRN (17:26)
[2020-07-20] MEDS ORDERED: ATROPINE SULFATE 0.1 MG/ML 10ML SYRINGE IV PRN (17:26)
[2020-07-20] MEDS ORDERED: NITROGLYCERIN SL TABS 0.4 MG TAB SUBLINGUAL PRN (17:26)
[2020-07-20] MEDS ORDERED: MAG HYDROX/AL HYDROX/SIMETH 30 ML CUP PO PRN (17:26)
[2020-07-20 17:30] LABS: Glucose,Whole Blood 201 mg/dL (75-99)
[2020-07-20] MEDS ORDERED: SODIUM CHLORIDE 0.9% 1,000 ML IV SCH (17:30)
--- NOTE | 2020-07-20 17:40 | P.PRCINT ---
Percutaneous Coronary Int. - Percutaneous Coronary Intervention Percutaneous Coronary Intervention: PROCEDURES PERFORMED: Left heart catheterization, bilateral coronary angiography, PCI of proximal to mid RCA with overlapping 4.0 x 28mm Xience LEONARD INDICATION: Inferior STEMI HISTORY: This is a pleasant 89-year-old male past medical history significant for hypertension, hyperlipidemia, recent non-STEMI, TIA, CAD, PAD status post right carotid endarterectomy, COPD and former tobacco abuse who presents secondary to chest pain. He was recently hospitalized 07/12/2020 with mildly elevated troponins, non-STEMI and recommendation was for medical therapy at that time given his CAD. He went home and then had recurrence of his chest pain which was more persistent. An echocardiogram was performed which showed cardiomyopathy with ejection fraction 20-25% and anterior wall hypokinesis. EKG shows sinus rhythm, normal axis, inferior ST elevation with reciprocal changes in the lateral and anterior leads. Risks and benefits were discussed in detail with patient and patient and daughter were understanding. CONSENT:I have discussed the risks, benefits and alternative therapies for the above-mentioned procedure and for both sedation/analgesia as well as necessary blood product administration, if indicated, as they pertain to this patient. The patient has indicated understanding and acceptance of the risks and procedures discussed. PROCEDURE: After the risks, benefits and alternatives of the above mentioned procedure explained in detail with the patient, informed consent was obtained. Patient was taken to the catheterization lab and prepped and draped in usual fashion. 1% lidocaine was used to anesthetize the right radial artery. A 6- Guamanian sheath was placed in the right radial artery using modified Seldinger technique. Left coronary angiography was performed with a 5-Guamanian JL 3.5 catheter. Right coronary angiography was performed with an AL 1.0 guide catheter in various views. Angiography was limited to conserve dye. The decision was made to intervene on the RCA. Heparin was given. A 0.014 BMW guidewire was inserted into the distal RCA. The lesion was predilated with a 2.5 x 12mm Balloon. Next overlapping 4.0 x 18mm Xience LEONARD were place from the proximal to mid RCA. The overlap was post dilated. Final angiograms were performed. Pre intervention there was 100% stenosis and diffuse mild to moderate disease of the entire segment with NORA 0 flow. After intervention there was no signficant stenosis and NORA 3 flow. The wire was pulled and final angiograms were performed. Finally, a 6-Guamanian pigtail catheter was inserted into the left ventricle and pressure measurements were obtained. The right radial sheath was removed and a TR band was placed with hemostasis achieved. The patient tolerated the procedure well. Patient was transported back to the post catheterization holding area in stable condition. Conscious Sedation: Patient was monitored under the direct supervision of vision of myself for conscious sedation using Versed and fentanyl for a total duration of 47 minutes HEMODYNAMICS: Aorta: 165/78 LV: 164/2 LVEDP 26mmHg SELECTIVE CORONARY ARTERIOGRAPHY: LEFT MAIN: The left main is a large caliber vessel which bifurcates into the LAD and circumflex. There is no significant stenosis. LEFT ANTERIOR DESCENDING CORONARY ARTERY: LAD is a large caliber vessel which wraps around to the apex. There are mild luminal irregularities with proximal 20-30% stenosis. There are left to right collaterals. LEFT CIRCUMFLEX CORONARY ARTERY: Left circumflex is a moderate caliber vessel without significant stenosis. RIGHT CORONARY ARTERY: The right coronary artery is a large caliber vessel which gives off a PDA and PLV branch and is the dominant vessel. There is 100% proximal RCA stenosis. FINAL IMPRESSION: 1. CAD as described above with mild disease of the left and 100% RCA stenosis, s/p PCI of proximal to mid RCA with overlapping 4.0 x 28mm Xience LEONARD 2. Elevated left-sided filling pressures 3. Cardiomyopathy likely out of proportion to CAD with EF 20-25% not entirely explained by RCA disease. 4. CKD PLAN: 1. Aggressive risk factor modification per most recent ACC/AHA guidelines. 2. Continue dual antiplatelets for 12 months. 3. IV hydration, monitor CKD closely
[2020-07-20] MEDS: METOPROLOL TARTRATE 25 MG TAB PO SCH (18:05)
[2020-07-20] MEDS: INSULIN ASPART (NovoLOG) 100 UNIT/ML VIAL SQ SCH ×2 (18:05→20:02)
[2020-07-20] MEDS ORDERED: ALBUTEROL NEBULIZED 2.5 MG/3 ML INHALATION PRN (18:18)
[2020-07-20] MEDS ORDERED: HYDROcodone/APAP 5-325MG 1 EACH TAB PO PRN (18:20)
[2020-07-20] MEDS ORDERED: TEMAZEPAM 15 MG CAP PO PRN (18:20)
[2020-07-20] MEDS ORDERED: ALPRAZolam 0.25 MG TAB PO PRN (18:20)
--- NOTE | 2020-07-20 19:10 | HP ---
HISTORY AND PHYSICAL DATE OF SERVICE: 07/20/2020 CHIEF COMPLAINT: Chest pain and belching. HISTORY OF PRESENT ILLNESS: This is an 89-year-old gentleman with a past history of COPD, CVA, GERD, hypertension, history of prostate disorder, history of TIA, history of bilateral neuropathy, history of cardiac cath being followed by Dr. Coery Irwin in the outpatient setting. He was recently admitted to [facility] with features of acute on chronic CHF, ejection fraction 24%, which was a non-ST segment elevation myocardial infarction with troponin around 0.077. The patient was medically treated. Patient went home and currently the patient is complaining of burning-type chest pain in the lower part of the anterior part of the chest which is severe and some belching and the patient came to [facility]. The troponin was found to be 0.096. EKG showed hyperacute changes in the inferior leads with reciprocal changes in the lateral leads and the patient was admitted for further evaluation and treatment. Dr. French performed a cardiac catheterization and the patient underwent PCI of the proximal to mid RCA with overlapping stents were done. The patient is being closely monitored. The patient also had renal failure. Creatinine was 2.04. The baseline was around the same indicating possible chronic kidney disease stage 3. The blood sugar is also elevated. Lactic acid also elevated on admission. There is no history of fever, rigors, chills. No headache, loss of consciousness, seizures at this time. PAST MEDICAL HISTORY: History of COPD, CVA, TIA, GERD, hypertension, history of possible prostate disorder. MEDICATIONS: Prior to admission include home medications are apresoline, Spiriva, Flomax, omeprazole, Nitrostat, Lopressor, Imdur, Lasix, Symbicort, Lipitor, aspirin, albuterol. ALLERGIES: . FAMILY HISTORY: History of diabetes mellitus in the family. SOCIAL HISTORY: History of smoking. No history of alcohol intake. REVIEW OF SYSTEMS: ENT: No diminished vision or hearing. CARDIOVASCULAR: As mentioned earlier. RESPIRATORY: As mentioned earlier. GI: As mentioned earlier. : No dysuria. NERVOUS SYSTEM: No numbness or weakness. ALLERGY/IMMUNOLOGY: No asthma or hayfever. MUSCULOSKELETAL: As mentioned earlier. HEMATOLOGY: No history of anemia. ENDOCRINE: No history of diabetes or hypothyroidism. CONSTITUTIONAL: As mentioned earlier. DERMATOLOGY: Negative. RHEUMATOLOGY: Negative. PSYCHIATRY: As mentioned earlier. PHYSICAL EXAMINATION: GENERAL: Patient is alert and oriented times three. VITAL SIGNS: Pulse 109, blood pressure 194/100, respirations 11, temperature 98.6, pulse ox 97% on 2 liters. HEENT: Conjunctivae normal. Oral mucosa moist. NECK: No jugular venous distention. No carotid bruits. No lymph node enlargement. RESPIRATORY: Breath sounds diminished at the bases. No rhonchi, no crackles. HEART: S1 and S2, muffled. No S3 or S4. ABDOMEN: Soft, diffuse distention present. No masses palpable. EXTREMITIES: No edema, no swelling. NERVOUS: Higher functions as mentioned earlier. Moves all four limbs. No focal motor or sensory deficits. LYMPHATICS: No lymph nodes palpable in the neck or axillae. SKIN: No rashes. JOINTS: No active deforming arthropathy. LABS: At this time shows WBC 12.2, hemoglobin 12.2. Other labs are noted. ASSESSMENT: 1. Hyperacute ST-segment elevation myocardial infarction status post cardiac catheterization and stenting of the right coronary artery. 2. Troponin 0.096. 3. Chronic kidney disease stage 3. 4. Diabetes mellitus type 2 with hyperglycemia. 5. Increased WBC. 6. Anemia. 7. Hypertensive urgency. 8. Chronic obstructive pulmonary disease. 9. History of cerebrovascular accident and transient ischemic attack. 10.Gastroesophageal reflux disease. 11.Hypertension. 12.Prostate disorder. 13.Bilateral neuropathy. 14.History of cardiac catheterization. 15.History of right carotid endarterectomy. 16.Continued ongoing nicotine dependence. 17.FULL CODE. RECOMMENDATIONS AND DISCUSSION: In this 89-year-old gentleman who presented with multiple complex medical issues, we will monitor the patient closely. The patient is going to be monitored closely in ICU. The dual antiplatelet treatment has been initiated. We will monitor IV fluids. Monitor the creatinine closely. Also get a nephrology evaluation regarding renal failure. Other than that, we will monitor the blood sugars closely. DVT prophylaxis. Incentive spirometry. Proton pump inhibitors. Prognosis guarded because of multiple complex medical issues. Further recommendations to follow. Home medications will be continued. MMODL / IJN: [id number] /
[2020-07-20] MEDS: NICOTINE 14MG/24HR PATCH TRANSDERM SCH (19:59)
[2020-07-20 20:02] LABS: Glucose,Whole Blood 124 mg/dL (75-99)
[2020-07-20] MEDS: PANTOPRAZOLE 40 MG/10 ML VIAL IVP SCH (20:02)
[2020-07-20] MEDS: hydrALAZINE HCL 50 MG TAB PO SCH (20:02)
[2020-07-20] MEDS: ATORVASTATIN 40 MG TAB PO SCH (20:02)
[2020-07-20] MEDS: SYMBICORT 160-4.5 MCG INHALER INHALATION SCH (21:43)
[2020-07-20 22:35] LABS: Appearance,Urine Clear (Clear); Bacteria,Urine Rare /hpf; Bilirubin,Urine Negative (Negative); Blood,Urine Small (Negative); Color,Urine Yellow; Glucose,Urine (UA) Negative (Negative); Hyaline Casts,Urine 1 /lpf (0-2); Ketones,Urine Negative (Negative); Leukocyte Esterase,Urine Small (Negative); Mucus,Urine Rare /hpf; Nitrite,Urine Negative (Negative); PH, Urine 5.5 (5.0-8.0); Protein,Urine 2+ (Negative); RBC,Urine 3 /hpf (0-5); Specific Gravity,Urine 1.025 (1.001-1.035); Urobilinogen,Urine <2.0 mg/dL (<2.0); WBC,Urine 18 /hpf (0-5)
[2020-07-21 05:18] LABS: Prothrombin Time 10.5 sec (9.0-12.0)
[2020-07-21 05:32] LABS: Calcium 8.2 mg/dL (8.4-10.2); Potassium 4.4 mmol/L (3.5-5.1)
[2020-07-21 05:39] LABS: Basophils % (A) 0 %; Eosinophils # (A) 1.1 k/uL (0-0.7); Eosinophils % (A) 11 %; HCT 30.4 % (39.0-53.0); Lymphocytes # (A) 2.2 k/uL (1.0-4.8); Lymphocytes % (A) 22 %; MCH 30.6 pg (25.0-35.0); MCHC 32.5 g/dL (31.0-37.0); MCV 94.3 fL (80.0-100.0); Mean Platelet Volume 8.4; Monocytes % (A) 10 %; Neutrophils # (A) 5.4 k/uL (1.3-7.7); Platelet Count 256 k/uL (150-450); RBC 3.23 m/uL (4.30-5.90); RDW 13.3 % (11.5-15.5); WBC 9.8 k/uL (3.8-10.6)
[2020-07-21 06:36] LABS: Glucose,Whole Blood 153 mg/dL (75-99)
[2020-07-21] MEDS: INSULIN ASPART (NovoLOG) 100 UNIT/ML VIAL SQ SCH ×4 (06:36→21:45)
[2020-07-21 06:37] LABS: HGB 9.9 gm/dL (13.0-17.5)
[2020-07-21] MEDS: TAMSULOSIN 0.4 MG CAP.ER.24H PO SCH (08:21)
[2020-07-21] MEDS: FUROSEMIDE 20 MG TAB PO SCH ×2 (08:21→17:46)
[2020-07-21] MEDS: ASPIRIN 81 MG PO SCH (08:21)
[2020-07-21] MEDS: hydrALAZINE HCL 50 MG TAB PO SCH ×2 (08:21→20:17)
[2020-07-21] MEDS: METOPROLOL TARTRATE 25 MG TAB PO SCH ×2 (08:22→20:17)
[2020-07-21] MEDS: PANTOPRAZOLE 40 MG/10 ML VIAL IVP SCH ×2 (08:22→20:17)
[2020-07-21] MEDS: NICOTINE 14MG/24HR PATCH TRANSDERM SCH (08:22)
[2020-07-21] MEDS: IPRATROPIUM 0.5 MG/2.5 ML NEBU INHALATION SCH ×4 (09:05→20:42)
[2020-07-21] MEDS: SYMBICORT 160-4.5 MCG INHALER INHALATION SCH ×2 (09:05→20:41)
--- NOTE | 2020-07-21 09:12 | P.PN ---
Subjective HISTORY OF PRESENTING ILLNESS This is a pleasant 89-year-old male past medical history significant for hypertension, hyperlipidemia, recent non-STEMI, TIA, CAD, PAD status post right carotid endarterectomy, COPD and former tobacco abuse who presents secondary to chest pain. He was recently hospitalized 07/12/2020 with mildly elevated troponins, non-STEMI and recommendation was for medical therapy at that time given his CAD. He went home and then had recurrence of his chest pain which was more persistent. An echocardiogram was performed which showed cardiomyopathy with ejection fraction 20-25% and anterior wall hypokinesis. EKG shows sinus rhythm, normal axis, inferior ST elevation with reciprocal changes in the lateral and anterior leads. 07/21/20 Patient seen and examined. Patient underwent left heart catheterization yesterday with limited contrast use and underwent successful PCI of proximal to mid RCA with 4.0 x 28 mm overlapping stents. Otherwise the left system had only mild coronary artery disease. His LVEDP was elevated at 26. He was given IV hydration for his CKD. Patient denies any chest pain or pressure. Denies any shortness breath. Blood pressures have improved on his home medications, previously systolics in the 200s on arrival. He admits that sometimes he feels poorly mainly when his systolic blood pressures in the 110s. REVIEW OF SYSTEMS At the time of my exam: CONSTITUTIONAL: Denies fever or chills. CARDIOVASCULAR: no chest pain, no shortness of breath, NO orthopnea, PND or palpitations. RESPIRATORY: Denies cough. GASTROINTESTINAL: Denies abdominal pain, diarrhea, constipation, nausea or vomit ing. PHYSICAL EXAMINATION CONSTITUTIONAL: Mild distress, elderly appearing HEENT: Head is normocephalic. Pupils are equal, round. Sclerae anicteric. Mucous membranes of the mouth are moist. No JVD. No carotid bruit. CHEST EXAMINATION: Lungs are clear to auscultation. No chest wall tenderness is noted on palpation or with deep breathing. HEART EXAMINATION: Regular rate and rhythm. S1, S2 heard. No murmurs, gallops or rub. ABDOMEN: Soft, nontender. Positive bowel sounds. EXTREMITIES: 2+ peripheral pulses, no lower extremity edema and no calf tenderness. NEUROLOGIC EXAMINATION: Patient is awake, alert and oriented x3. ASSESSMENT 1. Inferior STEMI, s/p PCI of proximal to mid RCA 07/20/20 2. Cardiomyopathy, out of proportion to CAD with 100% RCA however only mild disease of the left system 3. Chronic kidney disease 4. Hypertension 5. Prior history of tobacco abuse 6. COPD 7. PAD with prior carotid endarterectomy 8. Chronic systolic heart failure PLAN Continue dual antiplatelets for 12 months. Blood pressures appear improved on home medications. Ideally transition hydralazine to lisinopril or losartan however we will hold until kidney function appears stable. Monitor creatinine closely. Continue to optimize heart failure regimen as able. Currently appears euvolemic although elevated LVEDP previously. Check limited 2-D echo to evaluate LV function status post STEMI. Objective - Vital Signs Vital signs: Vital Signs Temp 97.8 F 07/21/20 04:00 Pulse 101 H 07/21/20 08:00 Resp 13 07/21/20 08:00 BP 121/51 07/21/20 08:00 Pulse Ox 95 07/21/20 08:00 Intake & Output 07/20/20 07/21/20 07/21/20 18:59 06:59 18:59 Intake Total 420 960 80 Output Total 650 0 Balance 420 310 80 Weight 70.307 kg 73.4 kg Intake: IV 420 960 80 Sodium Chloride 0.9% 1, 120 960 80 000 ml @ 80 mls/hr IV . [id number] [facility] Rx#:[id number] Output: Urine 650 0 Other: Voiding Method Urinal - Labs CBC & Chem 7: 07/21/20 04:27 07/21/20 04:27 Labs: Abnormal Lab Results - Last 24 Hours (Table) 07/20/20 07/20/20 07/20/20 Range/Units 16:04 16:04 16:04 WBC 12.6 H (3.8-10.6) k/uL RBC 4.07 L (4.30-5.90) m/uL Hgb 12.2 L (13.0-17.5) gm/dL Hct 37.4 L (39.0-53.0) % Neutrophils # 9.8 H (1.3-7.7) k/uL Eosinophils # 0.8 H (0-0.7) k/uL APTT 61.9 H (22.0-30.0) sec Carbon Dioxide 20 L (22-30) mmol/L BUN 32 H (9-20) mg/dL Creatinine 2.04 H (0.66-1.25) mg/dL Glucose 246 H (74-99) mg/dL POC Glucose (mg/dL) (75-99) mg/dL Plasma Lactic Acid Fran (0.7-2.0) mmol/L Calcium (8.4-10.2) mg/dL Magnesium 2.4 H (1.6-2.3) mg/dL Troponin I (0.000-0.034) ng/mL Urine Protein (Negative) Urine Blood (Negative) Ur Leukocyte Esterase (Negative) Urine WBC (0-5) /hpf Urine WBC Clumps (None) /hpf Urine Bacteria (None) /hpf Urine Mucus (None) /hpf 07/20/20 07/20/20 07/20/20 Range/Units 16:04 16:04 17:29 WBC (3.8-10.6) k/uL RBC (4.30-5.90) m/uL Hgb (13.0-17.5) gm/dL Hct (39.0-53.0) % Neutrophils # (1.3-7.7) k/uL Eosinophils # (0-0.7) k/uL APTT (22.0-30.0) sec Carbon Dioxide (22-30) mmol/L BUN (9-20) mg/dL Creatinine (0.66-1.25) mg/dL Glucose (74-99) mg/dL POC Glucose (mg/dL) 201 H (75-99) mg/dL Plasma Lactic Acid Fran 2.4 H* (0.7-2.0) mmol/L Calcium (8.4-10.2) mg/dL Magnesium (1.6-2.3) mg/dL Troponin I 0.096 H* (0.000-0.034) ng/mL Urine Protein (Negative) Urine Blood (Negative) Ur Leukocyte Esterase (Negative) Urine WBC (0-5) /hpf Urine WBC Clumps (None) /hpf Urine Bacteria (None) /hpf Urine Mucus (None) /hpf 07/20/20 07/20/20 07/21/20 Range/Units 20:00 22:18 04:27 WBC (3.8-10.6) k/uL RBC 3.23 L (4.30-5.90) m/uL Hgb 9.9 L D (13.0-17.5) gm/dL Hct 30.4 L (39.0-53.0) % Neutrophils # (1.3-7.7) k/uL Eosinophils # 1.1 H (0-0.7) k/uL APTT (22.0-30.0) sec Carbon Dioxide (22-30) mmol/L BUN (9-20) mg/dL Creatinine (0.66-1.25) mg/dL Glucose (74-99) mg/dL POC Glucose (mg/dL) 124 H (75-99) mg/dL Plasma Lactic Acid Fran (0.7-2.0) mmol/L Calcium (8.4-10.2) mg/dL Magnesium (1.6-2.3) mg/dL Troponin I (0.000-0.034) ng/mL Urine Protein 2+ H (Negative) Urine Blood Small H (Negative) Ur Leukocyte Esterase Small H (Negative) Urine WBC 18 H (0-5) /hpf Urine WBC Clumps Rare H (None) /hpf Urine Bacteria Rare H (None) /hpf Urine Mucus Rare H (None) /hpf 07/21/20 07/21/20 Range/Units 04:27 06:35 WBC (3.8-10.6) k/uL RBC (4.30-5.90) m/uL Hgb (13.0-17.5) gm/dL Hct (39.0-53.0) % Neutrophils # (1.3-7.7) k/uL Eosinophils # (0-0.7) k/uL APTT (22.0-30.0) sec Carbon Dioxide (22-30) mmol/L BUN 30 H (9-20) mg/dL Creatinine 2.06 H (0.66-1.25) mg/dL Glucose 168 H (74-99) mg/dL POC Glucose (mg/dL) 153 H (75-99) mg/dL Plasma Lactic Acid Fran (0.7-2.0) mmol/L Calcium 8.2 L (8.4-10.2) mg/dL Magnesium (1.6-2.3) mg/dL Troponin I (0.000-0.034) ng/mL Urine Protein (Negative) Urine Blood (Negative) Ur Leukocyte Esterase (Negative) Urine WBC (0-5) /hpf Urine WBC Clumps (None) /hpf Urine Bacteria (None) /hpf Urine Mucus (None) /hpf
--- NOTE | 2020-07-21 10:10 | P.NPCON ---
History of Present Illness - Reason for Consult chronic renal failure - History of Present Illness Reason for consultation: Chronic kidney disease History of present illness: Patient is a 89-year-old male seen in consultation for chronic kidney disease. Patient has chronic kidney disease stage IIIB. Baseline creatinine near 2 from April 2019. Renal function is stable with creatinine at 2.06 today. Patient presented to the hospital with chest pain. He was in the hospital last month as well with shortness of breath and at that time was found to have an EF of 20%. However his chest pain returned upon discharge and he came back to the hospital. Patient underwent cardiac catheterization on July 20 and underwent stenting of the mid right coronary artery. EF was noted to be 20-25%. Good urine output. No hematuria or dysuria. No fever or chills. No vomiting or diarrhea. No active chest pain or shortness of breath. Denies regular use of nonsteroidals. No history of diabetes. No edema. No family history of renal disease. Vital signs are stable. General: The patient appeared well nourished and normally developed. HEENT: Head exam is unremarkable. Neck is without jugular venous distension. LUNGS: Breath sounds decreased. HEART: Rate and Rhythm are regular. ABDOMEN: Abdominal soft, nontender. EXTREMITITES: No edema. Past Medical History Past Medical History: COPD, CVA/TIA, GERD/Reflux, Hypertension, Prostate Disorder, Renal Disease Additional Past Medical History / Comment(s): TIAs, BPH, CKD, neuropathy usman ateral hands Last Myocardial Infarction Date:: 07/20/2020 History of Any Multi-Drug Resistant Organisms: None Reported Past Surgical History: Heart Catheterization, Hernia Repair Additional Past Surgical History / Comment(s): R caratid endartectomy, bilateral cataracts removed/lens implants, cardiac cath-normal, R inguinal hernia repair, colonoscopy. Past Anesthesia/Blood Transfusion Reactions: No Reported Reaction Past Psychological History: No Psychological Hx Reported Smoking Status: Current some day smoker Past Alcohol Use History: None Reported Past Drug Use History: None Reported - Past Family History Mother Family Medical History: Diabetes Mellitus Additional Family Medical History / Comment(s): Mother lived to be 86yrs old. Father Family Medical History: Respiratory Disorder Additional Family Medical History / Comment(s): Father worked in the [email or web address] and had black lung. He at the age of 78yrs. Medications and Allergies Home Medications Medication Instructions Recorded Confirmed Type Tamsulosin [Flomax] 0.4 mg PO DAILY 03/18/16 07/20/20 History Omeprazole 20 mg PO DAILY PRN 07/12/20 07/20/20 History Tiotropium 2.5 Mcg/Puff [Spiriva 1 puff INHALATION RT-BID 07/12/20 07/20/20 History Respimat 2.5 Mcg] Albuterol Inhaler [Ventolin Hfa 1 puff INHALATION RT-QID PRN #1 07/15/20 07/20/20 Rx Inhaler] bottle Aspirin 81 mg PO DAILY #30 chew 07/15/20 07/20/20 Rx Atorvastatin [Lipitor] 40 mg PO HS #30 tab 07/15/20 07/20/20 Rx Isosorbide Mononitrate ER [Imdur] 30 mg PO DAILY #30 tab.er.24h 07/15/20 07/20/20 Rx Metoprolol Tartrate [Lopressor] 25 mg PO BID #60 tab 07/15/20 07/20/20 Rx Nitroglycerin Sl Tabs [Nitrostat] 0.4 mg SUBLINGUAL Q5M PRN #30 tab 07/15/20 07/20/20 Rx hydrALAZINE HCL [Apresoline] 50 mg PO BID #60 tab 07/15/20 07/20/20 Rx Budesonide-Formot 160-4.5 Mcg 2 puff INHALATION RT-BID 07/20/20 07/20/20 History [Symbicort 160-4.5 Mcg Inhaler] Furosemide [Lasix] 20 mg PO DAILY@0900,1600 07/20/20 07/20/20 History Allergies Allergy/AdvReac Type Severity Reaction Status Date / Time sulfur dioxide Allergy Unknown Verified 07/20/20 16:24 Physical Exam Vitals: Vital Signs Temp Pulse Pulse Resp BP BP Pulse Ox 07/21/20 09:16 78 07/21/20 09:05 75 07/21/20 08:00 101 H 13 121/51 95 07/21/20 07:00 75 16 113/54 92 L 07/21/20 06:00 81 19 135/65 92 L 07/21/20 05:00 75 18 108/49 90 L 07/21/20 04:00 97.8 F 76 16 142/67 95 07/21/20 03:00 79 18 136/70 97 07/21/20 02:00 84 16 111/49 91 L 07/21/20 01:00 84 18 121/56 90 L 07/21/20 00:00 97.6 F 80 17 116/75 97 07/20/20 23:11 83 18 129/60 97 07/20/20 23:00 79 17 125/53 97 07/20/20 22:30 81 16 114/60 96 07/20/20 22:00 67 22 112/57 99 07/20/20 21:43 97 07/20/20 21:30 75 24 105/54 95 07/20/20 21:00 78 19 116/75 95 07/20/20 20:30 79 18 129/69 96 07/20/20 20:00 97.6 F 86 20 133/71 97 07/20/20 19:30 91 90 43 H 143/85 98 07/20/20 19:15 93 07/20/20 19:00 94 23 175/86 97 07/20/20 18:42 98 07/20/20 18:40 100 21 160/88 98 07/20/20 18:35 103 H 24 160/88 98 07/20/20 18:30 104 H 16 179/88 98 07/20/20 18:15 107 H 15 179/88 98 07/20/20 18:12 108 H 07/20/20 18:00 105 H 15 172/84 96 07/20/20 17:57 108 H 07/20/20 17:45 106 H 13 188/85 97 07/20/20 17:42 107 H 07/20/20 17:40 98.1 F 111 H 13 194/100 97 07/20/20 17:30 109 H 105 H 11 L 194/100 97 07/20/20 16:36 98.6 F 15 188/85 97 07/20/20 16:00 80 18 203/114 100 07/20/20 15:22 97.7 F 110 H 18 211/94 97 Intake and Output 07/20/20 07/21/20 07/21/20 22:59 06:59 14:59 Intake Total 740 640 80 Output Total 350 300 0 Balance 390 340 80 Intake: IV 740 640 80 Sodium Chloride 0.9% 1, 440 640 80 000 ml @ 80 mls/hr IV . [id number] [facility] Rx#:[id number] Output: Urine 350 300 0 Other: Voiding Method Urinal Urinal Weight 70.307 kg 73.4 kg Results - Lab Results Most recent lab results Calcium 8.2 mg/dL (8.4-10.2) L 07/21/20 04:27 Magnesium 2.4 mg/dL (1.6-2.3) H 07/20/20 16:04 07/21/20 04:27 07/21/20 04:27 Assessment and Plan Plan: Assessment: 1. Chronic kidney disease stage IIIB with baseline creatinine near 2. 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 2. Coronary artery disease status post cardiac catheterization on July 20 with a stent placement to the mid RCA. 3. Chronic systolic CHF with ejection fraction of 20-25%. Plan: Maintain Lasix 20 mg orally once daily. Check renal ultrasound. Avoid nephrotoxins. Follow up outpatient for chronic kidney disease care. Thank you for the consultation. I will continue to follow the patient with you during his hospital stay.
[2020-07-21 11:49] LABS: Glucose,Whole Blood 165 mg/dL (75-99)
[2020-07-21 12:16] VITALS: BMI 23.2
--- NOTE | 2020-07-21 12:47 | ECHOF ---
Referral Reason:lv function MEASUREMENTS -------- HEIGHT: 177.8 cm WEIGHT: 73.0 kg BP: 128/62 RVIDd: 2.6 cm (< 3.3) IVSd: 1.6 cm (0.6 - 1.1) LVIDd: 5.1 cm (3.9 - 5.3) LVPWd: 1.4 cm (0.6 - 1.1) IVSs: 1.8 cm LVIDs: 4.4 cm LVPWs: 1.8 cm LA Diam: 4.0 cm (2.7 - 3.8) LAESV Index (A-L): 27.37 ml/m Ao Diam: 3.3 cm (2.0 - 3.7) AV Cusp: 2.1 cm (1.5 - 2.6) MV EXCURSION: 11.540 mm (> 18.000) MV EF SLOPE: 31 mm/s (70 - 150) EPSS: 2.0 cm MV E Chris: 0.96 m/s MV DecT: 239 ms MV A Chris: 1.29 m/s MV E/A Ratio: 0.75 RAP: 5.00 mmHg RVSP: 39.20 mmHg FINDINGS -------- Sinus rhythm. This was a technically adequate study. The left ventricular size is normal. There is moderate concentric left ventricular hypertrophy. O verall left ventricular systolic function is severely impaired with, an EF between 25 - 30 %. The right ventricle is mildly enlarged. Normal LA size by volume 22+/-6 ml/m2. The right atrium is normal in size. Interatrial and interventricular septum intact. There is mild aortic valve sclerosis. The mitral valve leaflets are mildly thickened. Mild mitral annular calcification present. Mild m itral regurgitation is present. Mild tricuspid regurgitation present. There is mild pulmonary hypertension. The right ventricular systolic pressure, as measured by Doppler, is 39.20mmHg. Trace/mild (physiologic) pulmonic regurgitation. The aortic root size is normal. Normal inferior vena cava with normal inspiratory collapse consistent with estimated right atrial pre ssure of 5 mmHg. There is no pericardial effusion. CONCLUSIONS -------- 1. The left ventricular size is normal. 2. There is moderate concentric left ventricular hypertrophy. 3. Overall left ventricular systolic function is severely impaired with, an EF between 25 - 30 %. 4. The right ventricle is mildly enlarged. 5. The mitral valve leaflets are mildly thickened. 6. Mild mitral annular calcification present. 7. Mild mitral regurgitation is present. 8. Mild tricuspid regurgitation present. 9. There is mild pulmonary hypertension. 10. The right ventricular systolic pressure, as measured by Doppler, is 39.20mmHg. 11. Trace/mild (physiologic) pulmonic regurgitation. 12. There is no pericardial effusion. IMPORT/EXPORT ANALYST: Payal Aldridge RDCS
--- NOTE | 2020-07-21 15:07 | US ---
EXAMINATION TYPE: US kidneys/renal and bladder DATE OF EXAM: 07/21/2020 COMPARISON: NONE CLINICAL HISTORY: amparo. EXAM MEASUREMENTS: Right Kidney: 9.8 x 5.1 x 5.8 cm Left Kidney: 9.4 x 5.0 x 4.4 cm Kidneys are bilaterally echogenic with thinned cortex. Right Kidney: No hydronephrosis or masses seen Left Kidney: No hydronephrosis or masses seen Bladder: wnl Bilateral Jets seen: only right jet seen. Cortical measured differentiation is somewhat decreased, cortical echotexture is increased IMPRESSION: Correlate for medical renal disease
--- NOTE | 2020-07-21 15:40 | PN ---
PROGRESS NOTE DATE OF SERVICE: 07/21/2020 This 89-year-old gentleman admitted with acute ST-segment elevation myocardial infarction had cardiac catheterization and stenting of the RCA. The patient was closely monitored. Patient also had significant renal failure. Creatinine was yesterday 2.04 today is 2.06. Nephrology following the patient closely. Troponins elevated. PAST MEDICAL HISTORY: Reviewed. REVIEW OF SYSTEMS: CARDIOVASCULAR SYSTEM: As mentioned earlier. RESPIRATORY SYSTEM: As mentioned earlier. GI: No nausea. : As mentioned earlier. CURRENT MEDICATIONS: Current medications are reviewed and include [place], Maalox, Xanax, aspirin, Lipitor, Atropine. Doses reviewed. PHYSICAL EXAMINATION: Patient is alert and oriented x3. Pulse 76, blood pressure 121/63, respiration 15, temperature 98 degrees, pulse ox 92% on room air. HEENT: Conjunctivae normal. NECK: No jugular venous distention. CARDIOVASCULAR: S1, S2 muffled. RESPIRATORY: Breath sounds diminished at the bases. No rhonchi, no crackles. ABDOMEN: Soft, minimal distention. LEGS: No edema, no swelling. NERVOUS SYSTEM: No focal deficits. LABS: WBC 9.8, hemoglobin 9.9, sodium 137, potassium 4.4, creatinine 2.06. The abdominal ultrasound reports are pending at this time. A 2D echo with Doppler read by Cardiology showed ejection fraction about 25% to 30% and multiple minimal valvular abnormalities. ASSESSMENT: 1. Hyperacute ST-segment elevation myocardial infarction, status post cardiac catheterization and stenting of the right coronary artery. 2. Troponin 0.096. 3. Chronic kidney disease, stage 3. 4. Congestive heart failure with chronic systolic dysfunction, ejection fraction 25% to 30%. 5. Diabetes mellitus type 2 with hyperglycemia. 6. Increased WBC. 7. Anemia. 8. Hypertensive urgency. 9. Chronic obstructive pulmonary disease. 10.History of cerebrovascular accident, transient ischemic attack. 11.Gastroesophageal reflux disease. 12.Hypertension. 13.History of prostate disorder. 14.Bilateral peripheral neuropathy. 15.History of cardiac catheterization. 16.History of right carotid endarterectomy. 17.Continued ongoing nicotine dependence. 18.FULL CODE. RECOMMENDATIONS AND DISCUSSION: Recommend to continue current medications and continue symptomatic treatment. Continue with dual antiplatelet medication treatment. Abdominal ultrasound. Continue the rest of medications and DVT prophylaxis. Incentive spirometry. Closely follow with Cardiology and Nephrology. Repeat labs will be ordered for tomorrow. Prognosis guarded. Further recommendations to follow. MMODL / IJN: [id number] /
[2020-07-21 16:43] LABS: Glucose,Whole Blood 100 mg/dL (75-99)
[2020-07-21] MEDS: CLOPIDOGREL 75 MG TAB PO SCH (17:45)
[2020-07-21] MEDS: ATORVASTATIN 40 MG TAB PO SCH (20:17)
[2020-07-21 21:44] LABS: Glucose,Whole Blood 191 mg/dL (75-99)
[2020-07-22 05:56] LABS: Basophils % (A) 0 %; Eosinophils # (A) 1.1 k/uL (0-0.7); Eosinophils % (A) 10 %; HGB 10.2 gm/dL (13.0-17.5); Lymphocytes # (A) 2.2 k/uL (1.0-4.8); Lymphocytes % (A) 20 %; MCH 29.7 pg (25.0-35.0); MCHC 31.8 g/dL (31.0-37.0); MCV 93.5 fL (80.0-100.0); Mean Platelet Volume 7.8; Monocytes # (A) 0.7 k/uL (0-1.0); Monocytes % (A) 7 %; Neutrophils # (A) 6.9 k/uL (1.3-7.7); Neutrophils % (A) 62 %; Platelet Count 289 k/uL (150-450); RBC 3.42 m/uL (4.30-5.90); RDW 13.5 % (11.5-15.5); WBC 11.1 k/uL (3.8-10.6)
[2020-07-22 06:03] LABS: Prothrombin Time 10.6 sec (9.0-12.0)
[2020-07-22 06:20] LABS: Potassium 4.7 mmol/L (3.5-5.1)
[2020-07-22 06:52] LABS: Glucose,Whole Blood 130 mg/dL (75-99)
[2020-07-22] MEDS: INSULIN ASPART (NovoLOG) 100 UNIT/ML VIAL SQ SCH ×4 (06:56→20:29)
[2020-07-22] MEDS: SYMBICORT 160-4.5 MCG INHALER INHALATION SCH ×2 (08:43→20:48)
[2020-07-22] MEDS: IPRATROPIUM 0.5 MG/2.5 ML NEBU INHALATION SCH ×4 (08:43→20:48)
[2020-07-22] MEDS: NICOTINE 14MG/24HR PATCH TRANSDERM SCH (09:09)
[2020-07-22] MEDS: CLOPIDOGREL 75 MG TAB PO SCH (09:10)
[2020-07-22] MEDS: ASPIRIN 81 MG PO SCH (09:10)
[2020-07-22] MEDS: TAMSULOSIN 0.4 MG CAP.ER.24H PO SCH (09:10)
[2020-07-22] MEDS: FUROSEMIDE 20 MG TAB PO SCH (09:10)
[2020-07-22] MEDS: hydrALAZINE HCL 50 MG TAB PO SCH ×2 (09:10→20:29)
[2020-07-22] MEDS: METOPROLOL TARTRATE 25 MG TAB PO SCH ×2 (09:10→20:29)
[2020-07-22] MEDS: PANTOPRAZOLE 40 MG/10 ML VIAL IVP SCH ×2 (09:10→20:30)
--- NOTE | 2020-07-22 09:36 | P.PN ---
Subjective HISTORY OF PRESENTING ILLNESS This is a pleasant 89-year-old male past medical history significant for hypertension, hyperlipidemia, recent non-STEMI, TIA, CAD, PAD status post right carotid endarterectomy, COPD and former tobacco abuse who presents secondary to chest pain. He was recently hospitalized 07/12/2020 with mildly elevated troponins, non-STEMI and recommendation was for medical therapy at that time given his CAD. He went home and then had recurrence of his chest pain which was more persistent. An echocardiogram was performed which showed cardiomyopathy with ejection fraction 20-25% and anterior wall hypokinesis. EKG shows sinus rhythm, normal axis, inferior ST elevation with reciprocal changes in the lateral and anterior leads. 07/21/20 Patient seen and examined. Patient underwent left heart catheterization yesterday with limited contrast use and underwent successful PCI of proximal to mid RCA with 4.0 x 28 mm overlapping stents. Otherwise the left system had only mild coronary artery disease. His LVEDP was elevated at 26. He was given IV hydration for his CKD. Patient denies any chest pain or pressure. Denies any shortness breath. Blood pressures have improved on his home medications, previously systolics in the 200s on arrival. He admits that sometimes he feels poorly mainly when his systolic blood pressures in the 110s. 07/22/20 Patient seen and examined. Patient denies any further chest pain. He did have some vague right arm pain however this has improved. Blood pressures overall improved. His creatinine has increased to 2.5 today. He admits he is still making urine. No hematochezia or melena. REVIEW OF SYSTEMS At the time of my exam: CONSTITUTIONAL: Denies fever or chills. CARDIOVASCULAR: no chest pain, no shortness of breath, NO orthopnea, PND or palpitations. RESPIRATORY: Denies cough. GASTROINTESTINAL: Denies abdominal pain, diarrhea, constipation, nausea or vomiting. PHYSICAL EXAMINATION CONSTITUTIONAL: No acute distress, elderly appearing HEENT: Head is normocephalic. Pupils are equal, round. Sclerae anicteric. Mucous membranes of the mouth are moist. No JVD. No carotid bruit. CHEST EXAMINATION: Lungs are clear to auscultation. No chest wall tenderness is noted on palpation or with deep breathing. HEART EXAMINATION: Regular rate and rhythm. S1, S2 heard. No murmurs, gallops or rub. ABDOMEN: Soft, nontender. Positive bowel sounds. EXTREMITIES: 2+ peripheral pulses, no lower extremity edema and no calf tenderness. NEUROLOGIC EXAMINATION: Patient is awake, alert and oriented x3. ASSESSMENT 1. Inferior STEMI, s/p PCI of proximal to mid RCA 07/20/20 2. Cardiomyopathy, out of proportion to CAD with 100% RCA however only mild disease of the left system 3. Chronic kidney disease 4. Hypertension 5. Prior history of tobacco abuse 6. COPD 7. PAD with prior carotid endarterectomy 8. Chronic systolic heart failure PLAN Continue supportive care. Continue dual antiplatelets. Monitor creatinine, mildly increased at 2.5 today however still making urine. Nephrology recommendations appreciated. Objective - Vital Signs Vital signs: Vital Signs Temp 98 F 07/22/20 08:00 Pulse 87 07/22/20 08:00 Resp 18 07/22/20 08:00 BP 144/71 07/22/20 08:00 Pulse Ox 94 L 07/22/20 08:00 Intake & Output 07/21/20 07/22/20 07/22/20 18:59 06:59 18:59 Intake Total 320 250 250 Output Total 0 450 400 Balance 320 -200 -150 Weight 73.4 kg 73.6 kg Intake: IV 80 Sodium Chloride 0.9% 1, 80 000 ml @ 80 mls/hr IV . [id number] [facility] Rx#:[id number] Oral 240 250 250 Output: Urine 0 450 400 Other: Voiding Method Urinal Urinal Urinal # Voids 2 2 - Labs CBC & Chem 7: 07/22/20 05:16 07/22/20 05:16 Labs: Abnormal Lab Results - Last 24 Hours (Table) 07/21/20 07/21/20 07/21/20 Range/Units 11:48 16:41 21:42 WBC (3.8-10.6) k/uL RBC (4.30-5.90) m/uL Hgb (13.0-17.5) gm/dL Hct (39.0-53.0) % Eosinophils # (0-0.7) k/uL BUN (9-20) mg/dL Creatinine (0.66-1.25) mg/dL Glucose (74-99) mg/dL POC Glucose (mg/dL) 165 H 100 H 191 H (75-99) mg/dL 07/22/20 07/22/2021 Range/Units 05:16 05:16 06:50 WBC 11.1 H (3.8-10.6) k/uL RBC 3.42 L (4.30-5.90) m/uL Hgb 10.2 L (13.0-17.5) gm/dL Hct 32.0 L (39.0-53.0) % Eosinophils # 1.1 H (0-0.7) k/uL BUN 32 H (9-20) mg/dL Creatinine 2.51 H (0.66-1.25) mg/dL Glucose 130 H (74-99) mg/dL POC Glucose (mg/dL) 130 H (75-99) mg/dL
[2020-07-22 11:44] LABS: Glucose,Whole Blood 217 mg/dL (75-99)
--- NOTE | 2020-07-22 11:55 | P.PN ---
Subjective Progress Note Date: 07/22/20 f/u for ckd, lying comfortable. cardiac cath on 07/20/2020. Objective - Vital Signs Vital signs: Vital Signs Temp 98 F 07/22/20 08:00 Pulse 87 07/22/20 08:00 Resp 18 07/22/20 08:00 BP 144/71 07/22/20 08:00 Pulse Ox 94 L 07/22/20 08:00 Intake & Output 07/21/20 07/22/20 07/22/20 18:59 06:59 18:59 Intake Total 320 250 250 Output Total 0 450 400 Balance 320 -200 -150 Weight 73.4 kg 73.6 kg Intake: IV 80 Sodium Chloride 0.9% 1, 80 000 ml @ 80 mls/hr IV . [id number] [facility] Rx#:[id number] Oral 240 250 250 Output: Urine 0 450 400 Other: Voiding Method Urinal Urinal Urinal # Voids 2 2 - Exam no acute distress s1 s2 herd lungs clear no edema - Labs CBC & Chem 7: 07/22/20 05:16 07/22/20 05:16 Labs: Abnormal Lab Results - Last 24 Hours (Table) 07/21/20 07/21/20 07/22/20 Range/Units 16:41 21:42 05:16 WBC 11.1 H (3.8-10.6) k/uL RBC 3.42 L (4.30-5.90) m/uL Hgb 10.2 L (13.0-17.5) gm/dL Hct 32.0 L (39.0-53.0) % Eosinophils # 1.1 H (0-0.7) k/uL BUN (9-20) mg/dL Creatinine (0.66-1.25) mg/dL Glucose (74-99) mg/dL POC Glucose (mg/dL) 100 H 191 H (75-99) mg/dL 07/22/20 07/22/20 07/22/20 Range/Units 05:16 06:50 11:43 WBC (3.8-10.6) k/uL RBC (4.30-5.90) m/uL Hgb (13.0-17.5) gm/dL Hct (39.0-53.0) % Eosinophils # (0-0.7) k/uL BUN 32 H (9-20) mg/dL Creatinine 2.51 H (0.66-1.25) mg/dL Glucose 130 H (74-99) mg/dL POC Glucose (mg/dL) 130 H 217 H (75-99) mg/dL Assessment and Plan Assessment: 1. MICHAEL suspect FABI. 2. 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 s/p cardiac cath 4. chf with sytolic dysfunction, compensated 5. htn with ckd Plan: 1. stop lasix, ivf 0.9 @ 75 mls/hr 2. monitor for volume overload 3. labs in am
[2020-07-22] MEDS: SODIUM CHLORIDE 0.9% 1,000 ML IV SCH (12:41)
[2020-07-22 16:30] LABS: Glucose,Whole Blood 75 mg/dL (75-99)
--- NOTE | 2020-07-22 18:40 | PN ---
PROGRESS NOTE DATE OF SERVICE: 07/22/2020 This 89 -year-old gentleman admitted with acute ST-segment elevation myocardial infarction, had cardiac catheterization and stenting of the RCA. The patient closely monitored. Patient monitored in ICU at this time. The patient also had elevated creatinine, indicating acute renal failure. Medical renal kidney disease are noted in the ultrasound. The creatinine yesterday was 2.06, today it is 2.5. IV fluids initiated. Troponin 0.096. The UA shows possible acute UTI. The cultures are negative at this time. Past medical history reviewed. REVIEW OF SYSTEMS: CARDIOVASCULAR SYSTEM: No angina. RESPIRATION: As mentioned earlier. GI: As mentioned earlier. as mentioned earlier. Nervous system: No numbness or weakness. CURRENT MEDICATIONS: Reviewed and include: [place], Maalox, Ventolin, Xanax, aspirin, Lipitor, Atropine, Apresoline, NovoLog. Doses are reviewed. PHYSICAL EXAMINATION: Alert and oriented times three. Pulse 71, blood pressure 97/40, respiration 18, temperature 97.8, pulse ox 98% on room air. HEENT: Conjunctivae normal. NECK: No JVD. CARDIOVASCULAR: S1, S2 muffled. RESPIRATORY: Breath sounds diminished at the bases. A few rhonchi. No crackles. ABDOMEN: Soft, nontender. LEGS are no edema. No swelling. NERVOUS SYSTEM: No focal deficits. LABS: WBC 11.2, hemoglobin 10.2, is 7.1 sodium 130, potassium 4.7, creatinine is 2.51. UA noted. ASSESSMENT: 1. Acute and hyperacute ST-segment elevation myocardial infarction status post cardiac catheterization and stenting of the RCA. 2. Troponin 0.096. 3. Chronic kidney disease stage 3. 4. Possible acute renal failure and contrast induced nephropathy with possible interstitial nephritis. 5. Urinary tract infection present on admission. 6. Congestive heart failure with chronic systolic dysfunction ejection fraction 25-30 percent. 7. Diabetes mellitus type 2 with hyperglycemia. 8. Increased WBC. 9. Anemia. 10.Hypertensive urgency. 11.Chronic obstructive pulmonary disease. 12.History of cerebrovascular accident, transient ischemic attack. 13.History of gastroesophageal reflux disease. 14.Hypertension. 15.History of prostate disorder. 16.History of peripheral neuropathy, bilateral. 17.History of cardiac catheterization. 18.History of right carotid endarterectomy. 19.Continued ongoing nicotine dependence. 20.FULL CODE. RECOMMENDATIONS AND DISCUSSION: Recommend to continue current medications, management and symptomatic treatment. Continue with IV fluids. Otherwise monitor creatinine closely. Recommend a course of antibiotics. Urine culture also. The prognosis guarded because of multiple complex medical issues. The patient is monitored in ICU. Closely follow with Cardiology, Nephrology. Further recommendations to follow. MMODL / IJN: [id number] / MTDD
[2020-07-22 20:22] LABS: Glucose,Whole Blood 177 mg/dL (75-99)
[2020-07-22] MEDS: ATORVASTATIN 40 MG TAB PO SCH (20:29)
[2020-07-22] MEDS ORDERED: ONDANSETRON 4 MG/2 ML VIAL IVP PRN (21:07)
[2020-07-23 04:16] LABS: Prothrombin Time 10.4 sec (9.0-12.0)
[2020-07-23 04:23] LABS: Basophils % (A) 0 %; Eosinophils % (A) 11 %; HCT 30.3 % (39.0-53.0); HGB 9.6 gm/dL (13.0-17.5); Lymphocytes # (A) 1.9 k/uL (1.0-4.8); Lymphocytes % (A) 21 %; MCH 29.9 pg (25.0-35.0); MCHC 31.6 g/dL (31.0-37.0); MCV 94.6 fL (80.0-100.0); Mean Platelet Volume 8.1; Monocytes # (A) 0.8 k/uL (0-1.0); Monocytes % (A) 8 %; Neutrophils # (A) 5.3 k/uL (1.3-7.7); Neutrophils % (A) 58 %; Platelet Count 267 k/uL (150-450); RDW 13.3 % (11.5-15.5); WBC 9.2 k/uL (3.8-10.6)
[2020-07-23 04:25] LABS: Calcium 8.6 mg/dL (8.4-10.2); Potassium 4.7 mmol/L (3.5-5.1)
[2020-07-23] MEDS: SODIUM CHLORIDE 0.9% 1,000 ML IV SCH (06:37)
[2020-07-23 06:40] LABS: Glucose,Whole Blood 165 mg/dL (75-99)
[2020-07-23] MEDS: INSULIN ASPART (NovoLOG) 100 UNIT/ML VIAL SQ SCH ×4 (07:11→20:47)
[2020-07-23] MEDS: SYMBICORT 160-4.5 MCG INHALER INHALATION SCH ×2 (08:21→20:17)
[2020-07-23] MEDS: IPRATROPIUM 0.5 MG/2.5 ML NEBU INHALATION SCH ×4 (08:22→20:17)
[2020-07-23] MEDS: NICOTINE 14MG/24HR PATCH TRANSDERM SCH (08:32)
[2020-07-23] MEDS: METOPROLOL TARTRATE 25 MG TAB PO SCH ×2 (08:56→20:47)
[2020-07-23] MEDS: ASPIRIN 81 MG PO SCH (08:56)
[2020-07-23] MEDS: PANTOPRAZOLE 40 MG/10 ML VIAL IVP SCH ×2 (08:56→20:47)
[2020-07-23] MEDS: CLOPIDOGREL 75 MG TAB PO SCH (08:56)
[2020-07-23] MEDS: TAMSULOSIN 0.4 MG CAP.ER.24H PO SCH (08:56)
[2020-07-23] MEDS: hydrALAZINE HCL 50 MG TAB PO SCH ×2 (08:56→20:47)
[2020-07-23] MEDS ORDERED: DOCUSATE 100 MG CAP PO PRN (09:26)
--- NOTE | 2020-07-23 09:30 | P.PN ---
Subjective HISTORY OF PRESENTING ILLNESS This is a pleasant 89-year-old male past medical history significant for hypertension, hyperlipidemia, recent non-STEMI, TIA, CAD, PAD status post right carotid endarterectomy, COPD and former tobacco abuse who presents secondary to chest pain. He was recently hospitalized 07/12/2020 with mildly elevated troponins, non-STEMI and recommendation was for medical therapy at that time given his CAD. He went home and then had recurrence of his chest pain which was more persistent. An echocardiogram was performed which showed cardiomyopathy with ejection fraction 20-25% and anterior wall hypokinesis. EKG shows sinus rhythm, normal axis, inferior ST elevation with reciprocal changes in the lateral and anterior leads. 07/21/20 Patient seen and examined. Patient underwent left heart catheterization yesterday with limited contrast use and underwent successful PCI of proximal to mid RCA with 4.0 x 28 mm overlapping stents. Otherwise the left system had only mild coronary artery disease. His LVEDP was elevated at 26. He was given IV hydration for his CKD. Patient denies any chest pain or pressure. Denies any shortness breath. Blood pressures have improved on his home medications, previously systolics in the 200s on arrival. He admits that sometimes he feels poorly mainly when his systolic blood pressures in the 110s. 07/22/20 Patient seen and examined. Patient denies any further chest pain. He did have some vague right arm pain however this has improved. Blood pressures overall improved. His creatinine has increased to 2.5 today. He admits he is still making urine. No hematochezia or melena. 07/23/20 Patient seen and examined. Patient denies any chest pain. No further arm pain. His creatinine has remained fairly stable at 2.5 today. He has been receiving normal saline at 75 mL per hour however LVEDP was noted to be elevated on heart catheterization. He has been eating and drinking without issue. He does have some constipation and stool softener was ordered. REVIEW OF SYSTEMS At the time of my exam: CONSTITUTIONAL: Denies fever or chills. CARDIOVASCULAR: no chest pain, no shortness of breath, NO orthopnea, PND or palpitations. RESPIRATORY: Denies cough. GASTROINTESTINAL: Denies abdominal pain, diarrhea, constipation, nausea or vomiting. PHYSICAL EXAMINATION CONSTITUTIONAL: No acute distress, elderly appearing HEENT: Head is normocephalic. Pupils are equal, round. Sclerae anicteric. Mucous membranes of the mouth are moist. No JVD. No carotid bruit. CHEST EXAMINATION: Lungs are clear to auscultation. No chest wall tenderness is noted on palpation or with deep breathing. HEART EXAMINATION: Regular rate and rhythm. S1, S2 heard. No murmurs, gallops or rub. ABDOMEN: Soft, nontender. Positive bowel sounds. EXTREMITIES: 2+ peripheral pulses, no lower extremity edema and no calf tenderness. NEUROLOGIC EXAMINATION: Patient is awake, alert and oriented x3. ASSESSMENT 1. Inferior STEMI, s/p PCI of proximal to mid RCA 07/20/20 2. Cardiomyopathy, out of proportion to CAD with 100% RCA however only mild disease of the left system 3. Chronic kidney disease 4. Hypertension 5. Prior history of tobacco abuse 6. COPD 7. PAD with prior carotid endarterectomy 8. Chronic systolic heart failure PLAN Patient menses still making urine and creatinine appears to have somewhat stablized at 2.5. Patient with elevated filling pressures during heart catheterization and has been receiving normal saline. Given cardiomyopathy would not give any more IV fluids as his oral intake is adequate and his LV pressures have been elevated. Hopeful discharge in next 24-48 hours if creatinine remains stable. Continue with heart failure regimen with beta priya and hydralazine. Hopeful change from hydralazine to ROBIN inhibitor or angiotensin receptor priya however would defer until Cr stabilizes. Objective - Vital Signs Vital signs: Vital Signs Temp 97.7 F 07/23/20 08:00 Pulse 71 07/23/20 08:00 Resp 16 07/23/20 08:00 BP 139/69 07/23/20 08:00 Pulse Ox 96 07/23/20 08:00 Intake & Output 07/22/20 07/23/20 07/23/20 18:59 06:59 18:59 Intake Total 850 250 Output Total 975 400 450 Balance -125 -150 -450 Weight 73.1 kg Intake: Intake, IV Titration 300 50 Amount Sodium Chloride 0.9% 1, 300 000 ml @ 75 mls/hr IV . [id number] [facility] Rx#:[id number] cefTRIAXone 1 gm In 50 Sodium Chloride 0.9% 50 ml @ 100 mls/hr IVPB Q24HR [facility] Rx#:[id number] Oral 550 200 Output: Urine 975 400 450 Other: Voiding Method Urinal Urinal Urinal - Labs CBC & Chem 7: 07/23/20 03:12 07/23/20 03:12 Labs: Abnormal Lab Results - Last 24 Hours (Table) 07/22/20 07/22/20 07/23/20 Range/Units 11:43 20:21 03:12 RBC 3.20 L (4.30-5.90) m/uL Hgb 9.6 L (13.0-17.5) gm/dL Hct 30.3 L (39.0-53.0) % Eosinophils # 1.0 H (0-0.7) k/uL Sodium (137-145) mmol/L BUN (9-20) mg/dL Creatinine (0.66-1.25) mg/dL Glucose (74-99) mg/dL POC Glucose (mg/dL) 217 H 177 H (75-99) mg/dL 07/23/20 07/23/20 Range/Units 03:12 06:39 RBC (4.30-5.90) m/uL Hgb (13.0-17.5) gm/dL Hct (39.0-53.0) % Eosinophils # (0-0.7) k/uL Sodium 135 L (137-145) mmol/L BUN 37 H (9-20) mg/dL Creatinine 2.57 H (0.66-1.25) mg/dL Glucose 146 H (74-99) mg/dL POC Glucose (mg/dL) 165 H (75-99) mg/dL
[2020-07-23 10:52] LABS: Glucose,Whole Blood 130 mg/dL (75-99)
--- NOTE | 2020-07-23 11:01 | P.PN ---
Subjective Progress Note Date: 07/23/20 f/u for ckd, lying comfortable. cardiac cath on 07/20/2020. Objective - Vital Signs Vital signs: Vital Signs Temp 97.7 F 07/23/20 08:00 Pulse 71 07/23/20 08:00 Resp 16 07/23/20 08:00 BP 139/69 07/23/20 08:00 Pulse Ox 96 07/23/20 08:00 Intake & Output 07/22/20 07/23/20 07/23/20 18:59 06:59 18:59 Intake Total 850 250 Output Total 975 400 450 Balance -125 -150 -450 Weight 73.1 kg Intake: Intake, IV Titration 300 50 Amount Sodium Chloride 0.9% 1, 300 000 ml @ 75 mls/hr IV . [id number] [facility] Rx#:[id number] cefTRIAXone 1 gm In 50 Sodium Chloride 0.9% 50 ml @ 100 mls/hr IVPB Q24HR [facility] Rx#:[id number] Oral 550 200 Output: Urine 975 400 450 Other: Voiding Method Urinal Urinal Urinal - Exam no acute distress s1 s2 herd lungs clear no edema - Labs CBC & Chem 7: 07/23/20 03:12 07/23/20 03:12 Labs: Abnormal Lab Results - Last 24 Hours (Table) 07/22/20 07/22/20 07/23/20 Range/Units 11:43 20:21 03:12 RBC 3.20 L (4.30-5.90) m/uL Hgb 9.6 L (13.0-17.5) gm/dL Hct 30.3 L (39.0-53.0) % Eosinophils # 1.0 H (0-0.7) k/uL Sodium (137-145) mmol/L BUN (9-20) mg/dL Creatinine (0.66-1.25) mg/dL Glucose (74-99) mg/dL POC Glucose (mg/dL) 217 H 177 H (75-99) mg/dL 07/23/20 07/23/20 07/23/20 Range/Units 03:12 06:39 10:51 RBC (4.30-5.90) m/uL Hgb (13.0-17.5) gm/dL Hct (39.0-53.0) % Eosinophils # (0-0.7) k/uL Sodium 135 L (137-145) mmol/L BUN 37 H (9-20) mg/dL Creatinine 2.57 H (0.66-1.25) mg/dL Glucose 146 H (74-99) mg/dL POC Glucose (mg/dL) 165 H 130 H (75-99) mg/dL Microbiology - Last 24 Hours (Table) 07/23/20 00:30 Urine Culture - Preliminary Urine,Voided Assessment and Plan Assessment: 1. MICHAEL suspect FABI. 2. 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 s/p cardiac cath 4. chf with sytolic dysfunction, compensated 5. htn with ckd Plan: 1. Lasix stopped yesterday, was on IV fluid overnight. Stopped by cardiology with elevated F ventricular diastolic pressure during cardiac cath. #2 renal function stable #3 avoid nephrotoxic agents and hypotensive episodes. #4 if labs stable by tomorrow can be discharged from nephrology point of view
[2020-07-23] MEDS ORDERED: LEVOFLOXACIN 250MG-D5W PMX 250 MG in DEXTROSE/WATER 1 50ML.BAG IVPB SCH (16:00)
[2020-07-23 16:53] LABS: Glucose,Whole Blood 147 mg/dL (75-99)
--- NOTE | 2020-07-23 17:48 | PN ---
PROGRESS NOTE DATE OF SERVICE: 07/23/2020 INTERVAL HISTORY: This is an 89-year-old gentleman admitted with acute ST-elevation myocardial, cardiac cath, stenting of the RCA. The patient had features of UTI also. The patient also had worsening renal failure with acute tubular necrosis, possibly interstitial nephritis secondary to contrast nephropathy. The patient received antibiotic. After that the patient has some nausea, vomiting, some reaction, possibly allergic according to the patient. Patient is not willing to take the antibiotic anymore. PAST MEDICAL HISTORY: Reviewed. REVIEW OF SYSTEMS: CARDIOVASCULAR: As mentioned earlier. RESPIRATORY: As mentioned earlier. GI: As mentioned earlier. : As mentioned earlier. NERVOUS SYSTEM: No numbness or weakness. CURRENT MEDICATIONS: Reviewed and include [place], Maalox, Ventolin, Xanax, aspirin, Lipitor, Atropine, Colace, Plavix, NovoLog, Levaquin, Lopressor, Habitrol, Nitrostat, Zofran. Doses reviewed. PHYSICAL EXAMINATION: GENERAL: Patient is alert and oriented times three. VITAL SIGNS: Pulse 79, blood pressure 135/74, respirations 16, temperature 98.2, pulse ox 97% on room air. HEENT: Conjunctivae normal. Oral mucosa moist. NECK: No jugular venous distention. No carotid bruits. No lymph node enlargement. RESPIRATORY: Breath sounds diminished at the bases. A few scattered rhonchi and crackles. HEART: S1 and S2, muffled. ABDOMEN: Soft, no tenderness. EXTREMITIES: No edema, no swelling. NERVOUS: No focal deficits. LAB STUDIES: WBC 9, hemoglobin 10.6. eosinophils is 1. Sodium is 135. Creatinine is 2.57. ASSESSMENT: 1. Acute and hyperacute ST-segment elevation myocardial infarction status post cardiac arrest and stenting of the right coronary artery. 2. Troponin 0.096. 3. Chronic kidney disease stage 3. 4. Possible acute renal failure with contrast induced nephropathy with possible interstitial nephritis. 5. Eosinophilia. 6. Urinary tract infection present on admission. 7. Congestive heart failure with chronic systolic dysfunction ejection fraction 25- 30%. 8. Diabetes mellitus type 2 with hyperglycemia. 9. Increased WBC. 10.Anemia. 11.Hypertensive urgency. 12.Chronic obstructive pulmonary disease. 13.History of cerebrovascular accident, transient ischemic attack. 14.Gastroesophageal reflux disease. 15.Hypertension. 16.History of prostate disorder. 17.History of peripheral neuropathy, bilateral. 18.History of cardiac catheterization. 19.History of right carotid endarterectomy. 20.Continued ongoing nicotine dependence. 21.FULL CODE. RECOMMENDATIONS AND DISCUSSION: I recommend to continue current management, continue to monitor and symptomatic treatment. Otherwise at this time I would recommend to monitor the creatinine closely and monitor blood sugars closely. Levaquin. Closely follow with Cardiology. Prognosis guarded because of multiple complex medical issues. Patient being closely monitored in the ICU. Further recommendations to follow. MMODL / IJN: [id number] / RAPHAEL
[2020-07-23 20:20] LABS: Glucose,Whole Blood 170 mg/dL (75-99)
[2020-07-23] MEDS: ATORVASTATIN 40 MG TAB PO SCH (20:47)
[2020-07-24 04:37] LABS: Basophils # (A) 0.1 k/uL (0-0.2); Basophils % (A) 1 %; Eosinophils # (A) 1.6 k/uL (0-0.7); Eosinophils % (A) 20 %; HCT 29.3 % (39.0-53.0); HGB 9.4 gm/dL (13.0-17.5); Lymphocytes # (A) 2.4 k/uL (1.0-4.8); Lymphocytes % (A) 28 %; MCH 29.6 pg (25.0-35.0); MCHC 32.2 g/dL (31.0-37.0); Mean Platelet Volume 7.7; Monocytes # (A) 0.6 k/uL (0-1.0); Monocytes % (A) 7 %; Neutrophils # (A) 3.6 k/uL (1.3-7.7); Neutrophils % (A) 44 %; Platelet Count 270 k/uL (150-450); RBC 3.19 m/uL (4.30-5.90); RDW 13.6 % (11.5-15.5); WBC 8.3 k/uL (3.8-10.6)
[2020-07-24 04:55] LABS: Albumin 3.1 g/dL (3.5-5.0); Calcium 8.4 mg/dL (8.4-10.2); Potassium 4.6 mmol/L (3.5-5.1); Total Bilirubin 0.3 mg/dL (0.2-1.3); Total Protein 5.8 g/dL (6.3-8.2)
[2020-07-24 06:40] LABS: Glucose,Whole Blood 135 mg/dL (75-99)
[2020-07-24] MEDS: INSULIN ASPART (NovoLOG) 100 UNIT/ML VIAL SQ SCH ×2 (06:52→12:32)
[2020-07-24] MEDS: IPRATROPIUM 0.5 MG/2.5 ML NEBU INHALATION SCH ×2 (07:47→11:05)
[2020-07-24] MEDS: SYMBICORT 160-4.5 MCG INHALER INHALATION SCH (07:47)
[2020-07-24 09:06] VITALS: TEMP 97.8
[2020-07-24] MEDS: PANTOPRAZOLE 40 MG/10 ML VIAL IVP SCH (09:19)
[2020-07-24] MEDS: hydrALAZINE HCL 50 MG TAB PO SCH (09:19)
[2020-07-24] MEDS: NICOTINE 14MG/24HR PATCH TRANSDERM SCH (09:19)
[2020-07-24] MEDS: ASPIRIN 81 MG PO SCH (09:19)
[2020-07-24] MEDS: CLOPIDOGREL 75 MG TAB PO SCH (09:19)
[2020-07-24] MEDS: METOPROLOL TARTRATE 25 MG TAB PO SCH (09:19)
[2020-07-24] MEDS: TAMSULOSIN 0.4 MG CAP.ER.24H PO SCH (09:19)
[2020-07-24 11:29] LABS: Glucose,Whole Blood 123 mg/dL (75-99)
--- NOTE | 2020-07-24 11:45 | P.PN ---
Subjective Progress Note Date: 07/24/20 This is a 89-year-old gentleman with history of chronic renal failure who was admitted to the hospital with the acute inferior wall NE. Patient understands stent placement of the RCA with small amount of contrast. His creatinine has gone up To 2.5 yesterday. Today's creatinine is about 2.3. Patient is feeling better. Denies any chest pain or shortness of breath. He wants to go home. Paradichlorobenzene Tender is cleared the patient could go home with her creatinine shows downward trend. His lungs are clear. Heart is regular. Patient is being discharged home. Follow-up as an outpatient Objective - Vital Signs Vital signs: Vital Signs Temp 97.8 F 07/24/20 08:00 Pulse 90 07/24/20 11:16 Resp 20 07/24/20 08:00 BP 147/53 07/24/20 08:00 Pulse Ox 97 07/24/20 08:00 Intake & Output 07/23/20 07/24/20 07/24/20 18:59 06:59 18:59 Intake Total 50 400 Output Total 1250 350 700 Balance -1200 50 -700 Weight 73.4 kg Intake: Intake, IV Titration 50 Amount Levofloxacin 250Mg-D5w 50 Pmx 250 mg In Dextrose/ Water 1 50ml.bag @ 50 mls /hr IVPB Q24H [facility] Rx#: [id number] Oral 400 Output: Urine 1250 350 700 Other: Voiding Method Urinal Urinal Urinal - Exam GENERAL EXAM: Patient is alert and oriented and doesn't appear to be in any acute distress HEENT: Normocephalic. Normal reaction of pupils, equal size, normal range of extraocular motion. No erythema or exudates in the throat. NECK: No masses, no nuchal rigidity. CHEST: No chest wall deformity. LUNGS: clear HEART: S1 and S2 normal with no audible mumurs or gallops. Regular rhythm, femorals equal on both sides.. ABDOMEN: No hepatosplenomegaly, normal bowel sounds, no guarding or rigidity. SKIN: No rashes CENTRAL NERVOUS SYSTEM: No focal deficits. EXTREMITIES: No cyanosis, clubbing or edema. - Labs CBC & Chem 7: 07/24/20 03:50 07/24/20 03:50 Labs: Abnormal Lab Results - Last 24 Hours (Table) 07/23/20 07/23/2021 Range/Units 16:51 20:19 03:50 RBC 3.19 L (4.30-5.90) m/uL Hgb 9.4 L (13.0-17.5) gm/dL Hct 29.3 L (39.0-53.0) % Eosinophils # 1.6 H (0-0.7) k/uL BUN (9-20) mg/dL Creatinine (0.66-1.25) mg/dL Glucose (74-99) mg/dL POC Glucose (mg/dL) 147 H 170 H (75-99) mg/dL Total Protein (6.3-8.2) g/dL Albumin (3.5-5.0) g/dL 07/24/20 07/24/20 07/24/20 Range/Units 03:50 06:39 11:27 RBC (4.30-5.90) m/uL Hgb (13.0-17.5) gm/dL Hct (39.0-53.0) % Eosinophils # (0-0.7) k/uL BUN 36 H (9-20) mg/dL Creatinine 2.38 H (0.66-1.25) mg/dL Glucose 140 H (74-99) mg/dL POC Glucose (mg/dL) 135 H 123 H (75-99) mg/dL Total Protein 5.8 L (6.3-8.2) g/dL Albumin 3.1 L (3.5-5.0) g/dL Microbiology - Last 24 Hours (Table) 07/22/20 17:34 Blood Culture - Preliminary Blood No Growth after 24 hours 07/23/20 00:30 Urine Culture - Preliminary Urine,Voided Assessment and Plan (1) ST elevation myocardial infarction (STEMI) Current Visit: Yes Status: Acute Code(s): I21.3 - ST ELEVATION (STEMI) MYOCARDIAL INFARCTION OF [facility] SITE SNOMED Code(s): 46742384 (2) COPD (chronic obstructive pulmonary disease) Current Visit: No Status: Acute Code(s): J44.9 - CHRONIC OBSTRUCTIVE PULMONARY DISEASE, UNSPECIFIED SNOMED Code(s): 56942126 (3) Renal insufficiency Current Visit: No Status: Acute Code(s): N28.9 - DISORDER OF KIDNEY AND URETER, UNSPECIFIED SNOMED Code(s): 576841517 Plan: Patient could be discharged home. Follow-up as an outpatient in the office
[2020-07-24 13:01] VITALS: PULSE 87; RESP 16
[2020-07-24 13:49] VITALS: BP 154/86
--- NOTE | 2020-07-24 18:37 | PN ---
PROGRESS NOTE The patient was seen earlier this morning for followup for acute kidney injury. He is currently stable. Patient denies any significant complaints. Renal function has improved. Creatinine staying at about 2.3 mg/dL now. PHYSICAL EXAMINATION: Blood pressure was 154/86, heart rate 87 per minute, he is afebrile. Examination of the heart S1, S2. Examination of the lungs, bilateral breath sounds are heard. Abdomen is soft, nontender. Examination lower extremities shows trace edema. EQUITY SALES ASSISTANT exam grossly intact. LAB: Show sodium 137, potassium 4.6, chloride 107, BUN 36, serum creatinine 2.38, hemoglobin 9.4 g/dL. ASSESSMENT: 1. Acute kidney injury, currently improved, mostly contrast induced nephropathy. 2. Chronic kidney disease stage 3 secondary to nephrosclerosis. Baseline creatinine about 2. 3. Status post cardiac catheterization. 4. Congestive heart failure, currently compensated. 5. Hypertension with chronic kidney disease. PLAN: The patient is stable for discharge. Follow up as outpatient in about one week's time. Repeat labs in 3-4 days post discharge. MMODL / IJN: [id number] /
[2020-07-24] MEDS ORDERED: PANTOPRAZOLE 40 MG TABLET PO SCH (21:00)
--- NOTE | 2020-07-24 22:07 | DS ---
DISCHARGE SUMMARY DATE OF SERVICE: 07/24/2020 FINAL DIAGNOSES: 1. Acute ST-segment elevation myocardial infarction status post cardiac catheterization and stenting of the RCA. 2. Troponin 0.096. 3. Chronic kidney disease stage 3. 4. Acute renal failure with contrast induced nephropathy with possible interstitial nephritis. 5. Eosinophilia. 6. Urinary tract infection, present on admission. 7. Congestive heart failure with chronic systolic dysfunction ejection fraction 25-30 percent. 8. Diabetes mellitus type 2 with hyperglycemia. 9. Increased WBC. 10.Anemia. 11.Hypertensive urgency. 12.Chronic obstructive pulmonary disease. 13.History of cerebrovascular accident, transient ischemic attack. 14.Gastroesophageal reflux disease. 15.Hypertension. 16.History of prostate disorder. 17.History of peripheral neuropathy, bilateral. 18.History of cardiac catheterization. 19.History of right carotid endarterectomy. 20.Continued ongoing nicotine dependence. 21.FULL CODE. DISCHARGE DISPOSITION: The patient being discharge in stable condition with guarded prognosis. HISTORY OF PRESENT ILLNESS: This 89-year-old gentleman with a past medical history of multiple medical problems admitted with ST-elevation myocardial infarction. Patient underwent cardiac catheterization, stenting of the RCA. Creatinine was worse indicating acute renal failure. Patient also had UTI treated with short course of antibiotics. Creatinine is 2.38 at this time. Cardiology cleared the patient for discharge. cardiology performed a cardiac catheterization and stent to the RCA and cleared the patient for discharge. DISCHARGE ADVICE AND MEDICATIONS: 1. Diet is cardiac diet. 2. Activity limited until followup. 3. Follow up with [facility] Dr. Irwin in 2-3 days. 4. Follow up with Dr. French and Dr. Nuñez's as advised. 5. Flomax 0.4 daily. 6. Omeprazole 20 mg p.o. daily. 7. Spiriva 1 puff daily. 8. Symbicort 160/4.5 two puffs b.i.d. 9. Apresoline 50 mg p.o. b.i.d. 10.Aspirin 81 mg daily. 11.Imdur ER 30 mg daily. 12.Levaquin 500 mg p.o. daily for 5 days. 13.Lipitor 40 mg p.o. q.h.s. 14.Lopressor 25 mg p.o. b.i.d. 15.Nitrostat 0.4 sublingually p.r.n. 16.Plavix 75 mg p.o. daily. 17.Albuterol p.r.n. CBC BMP with Dr. Nuñez and as well as primary. Once again the patient discharged in stable condition. Guarded prognosis. MMODL / IJN: [id number] /
[2020-07-25] MEDS ORDERED: LEVOFLOXACIN 250 MG TAB PO SCH (16:00)
== END 2020-07-24 13:40 | disposition home or self-care (01) | DRG 246 ==
LOC: EC 15:20 → 2SICU 16:14
PROVIDERS: ADMIT Hospitalist; ATTEND Hospitalist
PROC: 4A023N7 Measurement of Cardiac Sampling and Pressure, Left Heart, Percutaneous Approach (ICD-10-PCS; principal; 2020-07-20 16:07)
PROC: B2111ZZ Fluoroscopy of Multiple Coronary Arteries using Low Osmolar Contrast (ICD-10-PCS; principal; 2020-07-20 16:07)
PROC: 027034Z Dilation of Coronary Artery, One Artery with Drug-eluting Intraluminal Device, Percutaneous Approach (ICD-10-PCS; principal; 2020-07-20 16:07)
DX: I21.19 ST elevation (STEMI) myocardial infarction involving other coronary artery of inferior wall (principal); N17.0 Acute kidney failure with tubular necrosis; I13.0 Hypertensive heart and chronic kidney disease with heart failure and stage 1 through stage 4 chronic kidney disease, or unspecified chronic kidney disease; I50.22 Chronic systolic (congestive) heart failure; N39.0 Urinary tract infection, site not specified; I25.10 Atherosclerotic heart disease of native coronary artery without angina pectoris; I25.2 Old myocardial infarction; I25.5 Ischemic cardiomyopathy; F17.210 Nicotine dependence, cigarettes, uncomplicated; D64.9 Anemia, unspecified; D72.10 Eosinophilia, unspecified; E11.22 Type 2 diabetes mellitus with diabetic chronic kidney disease; E11.65 Type 2 diabetes mellitus with hyperglycemia; E11.42 Type 2 diabetes mellitus with diabetic polyneuropathy; E11.51 Type 2 diabetes mellitus with diabetic peripheral angiopathy without gangrene; E78.5 Hyperlipidemia, unspecified; I16.0 Hypertensive urgency; J44.9 Chronic obstructive pulmonary disease, unspecified; K21.9 Gastro-esophageal reflux disease without esophagitis; N14.1 Nephropathy induced by other drugs, medicaments and biological substances; N18.32 Chronic kidney disease, stage 3b; N40.0 Benign prostatic hyperplasia without lower urinary tract symptoms; Z20.822 Contact with and (suspected) exposure to COVID-19; T50.8X5A Adverse effect of diagnostic agents, initial encounter; Z79.51 Long term (current) use of inhaled steroids; Z79.82 Long term (current) use of aspirin; Z79.899 Other long term (current) drug therapy; Z83.3 Family history of diabetes mellitus; Z86.73 Personal history of transient ischemic attack (TIA), and cerebral infarction without residual deficits; Z98.42 Cataract extraction status, left eye; Z98.41 Cataract extraction status, right eye; Z96.1 Presence of intraocular lens
CPT/HCPCS: 36415; 71045; 76770; 80048; 80053; 81001; 83605; 83690; 83735; 83880; 84484; 85025; 85610; 85730; 87040; 87086; 87635; 93005; 93306; 93458; 94640; 96374; 96375; 99285

== ENCOUNTER 2020-08-01 12:40 | Inpatient (IN) | payer MEDICARE, OTHER ==
[2020-08-01] MEDS ORDERED: SODIUM CHLORIDE 0.9% 1,000 ML IV STA (13:28)
[2020-08-01] MEDS ORDERED: IPRATROPIUM-ALBUTEROL 3 ML NEB INHALATION STA (13:35)
--- NOTE | 2020-08-01 13:38 | ED ---
General Adult HPI - General Chief complaint: Weakness Stated complaint: weakness Time Seen by Provider: 08/01/20 13:15 Source: patient, family, RN notes reviewed Mode of arrival: wheelchair Limitations: physical limitation - History of Present Illness Initial comments: Patient is a pleasant 89-year-old male presenting to the emergency department with family with complaints of general weakness. Patient was in the hospital just over a week ago with 2 stents. Patient then felt constipated and did take magnesium citrate with multiple loose watery bowel movements. Patient states he was cleaned up very well. A vasquez the last 2 days has been generally weak. Weakness is generalized, not isolated. No confusion or speech problems. Patient is also having some difficulty in breathing. Patient does have history of previous COPD with similar dyspnea. - Related Data Home Medications Medication Instructions Recorded Confirmed Tamsulosin [Flomax] 0.4 mg PO DAILY 03/18/16 08/01/20 Omeprazole 20 mg PO DAILY PRN 07/12/20 08/01/20 Tiotropium 2.5 Mcg/Puff [Spiriva 1 puff INHALATION RT-BID 07/12/20 08/01/20 Respimat 2.5 Mcg] Budesonide-Formot 160-4.5 Mcg 2 puff INHALATION RT-BID 07/20/20 08/01/20 [Symbicort 160-4.5 Mcg Inhaler] Furosemide [Lasix] 20 mg PO BID@0800,1600 08/01/20 08/01/20 Nitroglycerin Sl Tabs [Nitrostat] 0.4 mg SL Q5M PRN 08/01/20 08/01/20 Previous Rx's Medication Instructions Recorded Albuterol Inhaler [Ventolin Hfa 1 puff INHALATION RT-QID PRN #1 07/15/20 Inhaler] bottle Aspirin 81 mg PO DAILY #30 chew 07/15/20 Atorvastatin [Lipitor] 40 mg PO HS #30 tab 07/15/20 Isosorbide Mononitrate ER [Imdur] 30 mg PO DAILY #30 tab.er.24h 07/15/20 Metoprolol Tartrate [Lopressor] 25 mg PO BID #60 tab 07/15/20 hydrALAZINE HCL [Apresoline] 50 mg PO BID #60 tab 07/15/20 Clopidogrel [Plavix] 75 mg PO DAILY 14 Days #14 tab 07/24/20 Allergies Allergy/AdvReac Type Severity Reaction Status Date / Time sulfur dioxide Allergy Unknown Verified 08/01/20 14:06 Review of Systems ROS Statement: Those systems with pertinent positive or pertinent negative responses have been documented in the HPI. ROS Other: All systems not noted in ROS Statement are negative. Constitutional: Denies: fever Eyes: Denies: eye pain ENT: Denies: ear pain Respiratory: Reports: cough, dyspnea Cardiovascular: Denies: chest pain Endocrine: Reports: fatigue Gastrointestinal: Denies: abdominal pain Genitourinary: Denies: dysuria Musculoskeletal: Denies: back pain Skin: Denies: rash Neurological: Reports: as per HPI. Denies: headache Past Medical History Past Medical History: COPD, CVA/TIA, GERD/Reflux, Hypertension, Prostate Disorder, Renal Disease Additional Past Medical History / Comment(s): TIAs, BPH, CKD, neuropathy bilateral hands Last Myocardial Infarction Date:: 07/20/2020 History of Any Multi-Drug Resistant Organisms: None Reported Past Surgical History: Heart Catheterization, Heart Catheterization With Stent, Hernia Repair Additional Past Surgical History / Comment(s): R caratid endartectomy, bilateral cataracts removed/lens implants, cardiac cath-normal, R inguinal hernia repair, colonoscopy. Past Anesthesia/Blood Transfusion Reactions: No Reported Reaction Past Psychological History: No Psychological Hx Reported Smoking Status: Current every day smoker Past Alcohol Use History: None Reported Past Drug Use History: None Reported - Past Family History Mother Family Medical History: Diabetes Mellitus Additional Family Medical History / Comment(s): Mother lived to be 86yrs old. Father Family Medical History: Respiratory Disorder Additional Family Medical History / Comment(s): Father worked in the [employer] and had black lung. He at the age of 78yrs. General Exam Limitations: physical limitation General appearance: alert, in no apparent distress Head exam: Present: atraumatic Eye exam: Present: normal appearance, PERRL Neck exam: Present: normal inspection Respiratory exam: Present: wheezes Cardiovascular Exam: Present: regular rate, normal rhythm GI/Abdominal exam: Present: soft. Absent: tenderness Extremities exam: Present: normal inspection Neurological exam: Present: alert, oriented X3, CN II-XII intact. Absent: motor sensory deficit Psychiatric exam: Present: normal affect, normal mood Skin exam: Present: normal color Course Vital Signs 0308/01/20 08/01/20 12:43 14:11 14:20 Temperature 97.4 F L Pulse Rate 98 84 82 Respiratory 20 Rate Blood Pressure 147/72 O2 Sat by Pulse 95 Oximetry EKG Findings - EKG Comments: EKG Findings:: No sinus rhythm with rate of 96. CO 140. QRS 108. QT 358. QTC 452. Normal axis. Incomplete left bundle-branch block. T-wave inversion in inferior and V6. Reviewed previous EKG dated July 202020. Medical Decision Making - Medical Decision Making Patient reevaluated and resting comfortably in bed. Patient and family updated on results and plan. Case was discussed with Dr. Schrader, who will [facility]. Patient will need fluids for hypermagnesemia however will need to be gently hydrated secondary to concern for some CHF component. - Lab Data Result diagrams: 08/01/20 13:54 08/01/20 13:54 Lab Results 08/01/20 08/01/20 08/01/20 Range/Units 13:54 13:54 13:54 WBC 7.5 (3.8-10.6) k/uL RBC 3.90 L (4.30-5.90) m/uL Hgb 11.4 L (13.0-17.5) gm/dL Hct 35.5 L (39.0-53.0) % MCV 91.0 (80.0-100.0) fL MCH 29.3 (25.0-35.0) pg MCHC 32.2 (31.0-37.0) g/dL RDW 13.1 (11.5-15.5) % Plt Count 323 (150-450) k/uL MPV 8.0 Neutrophils % 60 % Lymphocytes % 17 % Monocytes % 7 % Eosinophils % 14 % Basophils % 1 % Neutrophils # 4.5 (1.3-7.7) k/uL Lymphocytes # 1.3 (1.0-4.8) k/uL Monocytes # 0.5 (0-1.0) k/uL Eosinophils # 1.1 H (0-0.7) k/uL Basophils # 0.1 (0-0.2) k/uL PT 10.4 (9.0-12.0) sec INR 1.0 (<1.2) APTT 25.9 (22.0-30.0) sec Sodium 139 (137-145) mmol/L Potassium 4.4 (3.5-5.1) mmol/L Chloride 102 (98-107) mmol/L Carbon Dioxide 26 (22-30) mmol/L Anion Gap 11 mmol/L BUN 46 H (9-20) mg/dL Creatinine 2.72 H (0.66-1.25) mg/dL Est GFR (CKD-EPI)AfAm 23 (>60 ml/min/1.73 sqM) Est GFR (CKD-EPI)NonAf 20 (>60 ml/min/1.73 sqM) Glucose 195 H (74-99) mg/dL Plasma Lactic Acid Fran (0.7-2.0) mmol/L Calcium 9.2 (8.4-10.2) mg/dL Phosphorus 5.1 H (2.5-4.5) mg/dL Magnesium 3.4 H (1.6-2.3) mg/dL Total Bilirubin 0.4 (0.2-1.3) mg/dL AST 17 (17-59) U/L ALT 11 (4-49) U/L Alkaline Phosphatase 85 (38-126) U/L NT-Pro-B Natriuret Pep pg/mL Total Protein 7.1 (6.3-8.2) g/dL Albumin 4.0 (3.5-5.0) g/dL Free T4 1.33 (0.78-2.19) ng/dL Free T3 pg/mL 3.4 (2.8-5.3) pg/ml 08/01/20 08/01/20 Range/Units 13:54 13:54 WBC (3.8-10.6) k/uL RBC (4.30-5.90) m/uL Hgb (13.0-17.5) gm/dL Hct (39.0-53.0) % MCV (80.0-100.0) fL MCH (25.0-35.0) pg MCHC (31.0-37.0) g/dL RDW (11.5-15.5) % Plt Count (150-450) k/uL MPV Neutrophils % % Lymphocytes % % Monocytes % % Eosinophils % % Basophils % % Neutrophils # (1.3-7.7) k/uL Lymphocytes # (1.0-4.8) k/uL Monocytes # (0-1.0) k/uL Eosinophils # (0-0.7) k/uL Basophils # (0-0.2) k/uL PT (9.0-12.0) sec INR (<1.2) APTT (22.0-30.0) sec Sodium (137-145) mmol/L Potassium (3.5-5.1) mmol/L Chloride (98-107) mmol/L Carbon Dioxide (22-30) mmol/L Anion Gap mmol/L BUN (9-20) mg/dL Creatinine (0.66-1.25) mg/dL Est GFR (CKD-EPI)AfAm (>60 ml/min/1.73 sqM) Est GFR (CKD-EPI)NonAf (>60 ml/min/1.73 sqM) Glucose (74-99) mg/dL Plasma Lactic Acid Fran 2.0 (0.7-2.0) mmol/L Calcium (8.4-10.2) mg/dL Phosphorus (2.5-4.5) mg/dL Magnesium (1.6-2.3) mg/dL Total Bilirubin (0.2-1.3) mg/dL AST (17-59) U/L ALT (4-49) U/L Alkaline Phosphatase (38-126) U/L NT-Pro-B Natriuret Pep 78182 pg/mL Total Protein (6.3-8.2) g/dL Albumin (3.5-5.0) g/dL Free T4 (0.78-2.19) ng/dL Free T3 pg/mL (2.8-5.3) pg/ml - Radiology Data Radiology results: image reviewed (COPD, no acute process) Disposition Clinical Impression: Hypermagnesemia, CHF (congestive heart failure) Disposition: ADMITTED IP TO THIS HOSP Is patient prescribed a controlled substance at d/c from ED?: No Referrals: [facility],Clinic [Primary Care Provider] - 1-2 days Decision Time: 14:47
[2020-08-01 14:09] LABS: Basophils # (A) 0.1 k/uL (0-0.2); Basophils % (A) 1 %; Eosinophils # (A) 1.1 k/uL (0-0.7); Eosinophils % (A) 14 %; HCT 35.5 % (39.0-53.0); HGB 11.4 gm/dL (13.0-17.5); Lymphocytes # (A) 1.3 k/uL (1.0-4.8); Lymphocytes % (A) 17 %; MCH 29.3 pg (25.0-35.0); MCHC 32.2 g/dL (31.0-37.0); Monocytes # (A) 0.5 k/uL (0-1.0); Monocytes % (A) 7 %; Neutrophils # (A) 4.5 k/uL (1.3-7.7); Neutrophils % (A) 60 %; Platelet Count 323 k/uL (150-450); RDW 13.1 % (11.5-15.5); WBC 7.5 k/uL (3.8-10.6)
--- NOTE | 2020-08-01 14:14 | XR ---
EXAMINATION TYPE: XR chest 2V DATE OF EXAM: 08/01/2020 COMPARISON: 07/20/2020 TECHNIQUE: PA and lateral views submitted. HISTORY: Shortness of breath FINDINGS: The lungs are clear and there is no pneumothorax, pleural effusion, or focal pneumonia. Underinflat ion suggests COPD. Arthropathy of the shoulders. Atherosclerotic change aorta. No overt failure. Hype rtrophic and degenerative changes of the spine. Diffuse osteopenia. IMPRESSION: 1. No acute process. Correlate for COPD.
[2020-08-01 14:26] LABS: Calcium 9.2 mg/dL (8.4-10.2); Magnesium 3.4 mg/dL (1.6-2.3); Phosphorus 5.1 mg/dL (2.5-4.5); Potassium 4.4 mmol/L (3.5-5.1); Total Bilirubin 0.4 mg/dL (0.2-1.3); Total Protein 7.1 g/dL (6.3-8.2)
[2020-08-01 14:28] LABS: Partial Thromboplastin Time 25.9 sec (22.0-30.0); Prothrombin Time 10.4 sec (9.0-12.0)
[2020-08-01 14:43] LABS: T4, Free (Free Thyroxine) 1.33 ng/dL (0.78-2.19)
[2020-08-01] MEDS ORDERED: NALOXONE 0.4 MG/ML 1 ML VIAL IV PRN (14:48)
[2020-08-01] MEDS ORDERED: SODIUM CHLORIDE 0.9% 1,000 ML IV SCH (15:00)
[2020-08-01 15:36] LABS: Appearance,Urine Cloudy (Clear); Bacteria,Urine Rare /hpf; Bilirubin,Urine Negative (Negative); Blood,Urine Negative (Negative); Color,Urine Yellow; Glucose,Urine (UA) Negative (Negative); Hyaline Casts,Urine 4 /lpf (0-2); Ketones,Urine Negative (Negative); Leukocyte Esterase,Urine Large (Negative); Mucus,Urine Rare /hpf; Nitrite,Urine Negative (Negative); PH, Urine 5.5 (5.0-8.0); Protein,Urine Trace (Negative); RBC,Urine 3 /hpf (0-5); Specific Gravity,Urine 1.011 (1.001-1.035); Squamous Epithelial Cell,Urine 1 /hpf (0-4); Urobilinogen,Urine <2.0 mg/dL (<2.0); WBC,Urine 64 /hpf (0-5)
[2020-08-01] MEDS ORDERED: FUROSEMIDE 10 MG/ML 4 ML VIAL IV SCH (18:05)
[2020-08-01] MEDS ORDERED: NITROGLYCERIN SL TABS 0.4 MG TAB SUBLINGUAL PRN (18:29)
[2020-08-01] MEDS ORDERED: SENNOSIDES-DOCUSATE SODIUM 1 EACH TAB PO PRN (18:30)
--- NOTE | 2020-08-01 18:34 | P.HPIM ---
History of Present Illness This is a pleasant 89 years old male with past medical history of transient ischemic attack, COPD, gastroesophageal reflux disease, hypertension, benign prostatic hypertrophy, chronic kidney disease. He follows up in the [place] [facility] He was recently admitted to the hospital twice, 07/12-07/15 for acute on chronic systolic CHF with ejection fraction 20-25% and possible elements of acute coronary syndrome at that time solar energy technician recommended medical therapy, then patient was admitted again 07/20-07/24 for acute inferior STEMI, where cardiac cath was done and stent placement of the RCA. However [facility] where he was sent to the emergency room again for generalized weakness associated with dyspnea. Patient feels generally weak which is affecting his ability to walk. He has little cuff but no chest pain. He is not on home oxygen. However he has been complaining of from dyspnea e specially with exertion for the last few days Patient also constipated for 9 days and 2 days ago he consumed 2 bottles of 8 pounds of magnesium, followed by about 5-6 bowel movements where 2-3 of them were at night and woke him from sleep, especially when he coughs. Yesterday he had one bowel movement and today he did not have any bowel movement. However patient denies abdominal pain or vomiting Patient smokes 1-1.5 pack per day, his cutting down to 4 cigarettes per day. He denies alcohol or illicit drugs On admission vitals are stable and he is saturating 96% on room air. He is afebrile. CBC is unremarkable except for mild anemia with hemoglobin 11.4. INR is 1.0, creatinine is stable at 2.7, with baseline 2.0-2.4. Also patient has worsening troponin 0.2 compared to baseline of 0.07-0.09[place] [address], compared to last week of 6700, UA is suspicious of infection. Coronal virus not detected EKG showing normal sinus rhythm at [address]-T changes and QTC 452. Chest x-ray: No acute process, correlate for COPD In the emergency room patient was started on normal saline at 75 mL per hour which is a stopped now. Review of Systems -CONSTITUTIONAL: No fever, no malaise, patient is positive for fatigue. HEENT: No recent visual problems or hearing problems. Denied any sore throat. CARDIOVASCULAR: No orthopnea, PND, no palpitations, no syncope. PULMONARY: No chest wall tenderness, no hemoptysis. GASTROINTESTINAL: No diarrhea, no nausea, no vomiting, no abdominal pain. Normoactive bowel sounds. NEUROLOGICAL: No headaches, no weakness, no numbness. HEMATOLOGICAL: Denies any bleeding or petechiae. GENITOURINARY: Denies any burning micturition, frequency, or urgency. MUSCULOSKELETAL/RHEUMATOLOGICAL: Denies any joint pain, swelling, or any muscle pain. ENDOCRINE: Denies any polyuria or polydipsia. Past Medical History Past Medical History: COPD, CVA/TIA, GERD/Reflux, Hypertension, Prostate Disorder, Renal Disease Additional Past Medical History / Comment(s): TIAs, BPH, CKD, neuropathy bilateral hands Last Myocardial Infarction Date:: 07/20/2020 History of Any Multi-Drug Resistant Organisms: None Reported Past Surgical History: Heart Catheterization, Heart Catheterization With Stent, Hernia Repair Additional Past Surgical History / Comment(s): R caratid endartectomy, bilateral cataracts removed/lens implants, cardiac cath-normal, R inguinal hernia repair, colonoscopy. Past Anesthesia/Blood Transfusion Reactions: No Reported Reaction Past Psychological History: No Psychological Hx Reported Smoking Status: Current every day smoker Past Alcohol Use History: None Reported Past Drug Use History: None Reported - Past Family History Mother Family Medical History: Diabetes Mellitus Additional Family Medical History / Comment(s): Mother lived to be 86yrs old. Father Family Medical History: Respiratory Disorder Additional Family Medical History / Comment(s): Father worked in the [employer] and had black lung. He at the age of 78yrs. Medications and Allergies Home Medications Medication Instructions Recorded Confirmed Type Tamsulosin [Flomax] 0.4 mg PO DAILY 03/18/16 08/01/20 History Omeprazole 20 mg PO DAILY PRN 07/12/20 08/01/20 History Tiotropium 2.5 Mcg/Puff [Spiriva 1 puff INHALATION RT-BID 07/12/20 08/01/20 History Respimat 2.5 Mcg] Albuterol Inhaler [Ventolin Hfa 1 puff INHALATION RT-QID PRN #1 07/15/20 08/01/20 Rx Inhaler] bottle Aspirin 81 mg PO DAILY #30 chew 07/15/20 08/01/20 Rx Atorvastatin [Lipitor] 40 mg PO HS #30 tab 07/15/20 08/01/20 Rx Isosorbide Mononitrate ER [Imdur] 30 mg PO DAILY #30 tab.er.24h 07/15/20 08/01/20 Rx Metoprolol Tartrate [Lopressor] 25 mg PO BID #60 tab 07/15/20 08/01/20 Rx hydrALAZINE HCL [Apresoline] 50 mg PO BID #60 tab 07/15/20 08/01/20 Rx Budesonide-Formot 160-4.5 Mcg 2 puff INHALATION RT-BID 07/20/20 08/01/20 History [Symbicort 160-4.5 Mcg Inhaler] Clopidogrel [Plavix] 75 mg PO DAILY 14 Days #14 tab 07/24/20 08/01/20 Rx Furosemide [Lasix] 20 mg PO BID@0800,1600 08/01/20 08/01/20 History Nitroglycerin Sl Tabs [Nitrostat] 0.4 mg SL Q5M PRN 08/01/20 08/01/20 History Allergies Allergy/AdvReac Type Severity Reaction Status Date / Time sulfur dioxide Allergy Unknown Verified 08/01/20 14:06 Physical Exam Vitals: Vital Signs Temp Pulse Resp BP Pulse Ox 08/01/20 16:19 80 16 162/79 96 08/01/20 14:20 82 08/01/20 14:11 84 08/01/20 13:48 18 08/01/20 12:43 97.4 F L 98 20 147/72 95 Intake and Output 08/01/20 08/01/20 08/01/20 06:59 14:59 22:59 Other: Weight 70.76 kg -GENERAL: The patient is alert and oriented x3, not in any acute distress. Well developed, well nourished. Generally weak HEENT: Pupils are round and equally reacting to light. EOMI. No scleral icterus. No conjunctival pallor. Normocephalic, atraumatic. No pharyngeal erythema. No thyromegaly. CARDIOVASCULAR: S1 and S2 present. No murmurs, rubs, or gallops. -PULMONARY: Chest is clear to auscultation, bilateral expiratory wheezing ABDOMEN: Soft, nontender, nondistended, normoactive bowel sounds. No palpable organomegaly. MUSCULOSKELETAL: No joint swelling or deformity. EXTREMITIES: No cyanosis, clubbing, or pedal edema. NEUROLOGICAL: Gross neurological examination did not reveal any focal deficits. SKIN: No rashes. No petechiae Results CBC & Chem 7: 08/01/20 13:54 08/01/20 13:54 Labs: Abnormal Lab Results - Last 24 Hours (Table) 08/01/20 08/01/20 08/01/20 Range/Units 13:54 13:54 13:54 RBC 3.90 L (4.30-5.90) m/uL Hgb 11.4 L (13.0-17.5) gm/dL Hct 35.5 L (39.0-53.0) % Eosinophils # 1.1 H (0-0.7) k/uL BUN 46 H (9-20) mg/dL Creatinine 2.72 H (0.66-1.25) mg/dL Glucose 195 H (74-99) mg/dL Phosphorus 5.1 H (2.5-4.5) mg/dL Magnesium 3.4 H (1.6-2.3) mg/dL Troponin I 0.200 H* (0.000-0.034) ng/mL Urine Protein (Negative) Ur Leukocyte Esterase (Negative) Urine WBC (0-5) /hpf Urine Bacteria (None) /hpf Hyaline Casts (0-2) /lpf Urine Mucus (None) /hpf 08/01/20 Range/Units 15:16 RBC (4.30-5.90) m/uL Hgb (13.0-17.5) gm/dL Hct (39.0-53.0) % Eosinophils # (0-0.7) k/uL BUN (9-20) mg/dL Creatinine (0.66-1.25) mg/dL Glucose (74-99) mg/dL Phosphorus (2.5-4.5) mg/dL Magnesium (1.6-2.3) mg/dL Troponin I (0.000-0.034) ng/mL Urine Protein Trace H (Negative) Ur Leukocyte Esterase Large H (Negative) Urine WBC 64 H (0-5) /hpf Urine Bacteria Rare H (None) /hpf Hyaline Casts 4 H (0-2) /lpf Urine Mucus Rare H (None) /hpf Assessment and Plan Assessment: acute on chronic systolic CHF with ejection fraction 20-25% Acute COPD exacerbation Worsening troponin, recent history of acute STEMI status post stent of the RCA Possible acute urinary tract infection Nicotine dependence Hypertension Chronic kidney disease, stage 3-4 History of TIA History of GERD Benign prostatic hypertrophy Plan: This is a pleasant 89 years old male who presents with ongoing CHF, COPD and possible UTI. Cardiology . IV fluids and start Lasix 40 mg twice daily. Monitor creatinine and electrolytes and input and output. Start Solu-Medrol and ceftriaxone which will cover UTI as well and bronchodilator. Physical therapy evaluation Labs and medication were reviewed.. Continue same treatment. Continue with symptomatic treatment. Resume home medication. Monitor lytes and vitals. DVT and GI prophylaxis. Further recommendations depends on the clinical course of the patient DVT prophylaxis: Subcutaneous heparin GI Prophylaxis: Ppi PT/OT: Pending Prognosis is guarded
[2020-08-01] MEDS: HEPARIN SODIUM,PORCINE 5,000 UNIT/ML 1 ML VIAL SQ SCH (20:11)
[2020-08-01] MEDS: FUROSEMIDE 10 MG/ML 2 ML VIAL IV SCH (20:11)
[2020-08-01] MEDS: hydrALAZINE HCL 50 MG TAB PO SCH (20:12)
[2020-08-01] MEDS: methylPREDNISolone SOD SUCCI 40 MG/ML 1 ML VIAL IV SCH (20:12)
[2020-08-01] MEDS: METOPROLOL TARTRATE 25 MG TAB PO SCH (20:12)
[2020-08-01] MEDS: ATORVASTATIN 40 MG TAB PO SCH (20:12)
[2020-08-01] MEDS: IPRATROPIUM 0.5 MG/2.5 ML NEBU INHALATION SCH (20:21)
[2020-08-01] MEDS: SYMBICORT 160-4.5 MCG INHALER INHALATION SCH (20:21)
[2020-08-02] MEDS: methylPREDNISolone SOD SUCCI 40 MG/ML 1 ML VIAL IV SCH ×5 (00:07→23:27)
[2020-08-02] MEDS: PANTOPRAZOLE 40 MG TABLET PO SCH (06:29)
[2020-08-02] MEDS: IPRATROPIUM 0.5 MG/2.5 ML NEBU INHALATION SCH ×4 (07:35→20:25)
[2020-08-02] MEDS: SYMBICORT 160-4.5 MCG INHALER INHALATION SCH ×2 (07:35→20:25)
[2020-08-02 07:42] LABS: Calcium 8.6 mg/dL (8.4-10.2); Potassium 4.8 mmol/L (3.5-5.1)
[2020-08-02] MEDS: CLOPIDOGREL 75 MG TAB PO SCH (09:45)
[2020-08-02] MEDS: FUROSEMIDE 10 MG/ML 2 ML VIAL IV SCH ×3 (09:45→21:16)
[2020-08-02] MEDS: hydrALAZINE HCL 50 MG TAB PO SCH ×2 (09:47→21:16)
[2020-08-02] MEDS: ISOSORBIDE MONONITRATE ER 30 MG TAB.ER.24H PO SCH (09:48)
[2020-08-02] MEDS: METOPROLOL TARTRATE 25 MG TAB PO SCH ×2 (09:48→21:15)
[2020-08-02] MEDS: TAMSULOSIN 0.4 MG CAP.ER.24H PO SCH (09:49)
[2020-08-02] MEDS: HEPARIN SODIUM,PORCINE 5,000 UNIT/ML 1 ML VIAL SQ SCH ×2 (09:57→21:16)
--- NOTE | 2020-08-02 13:15 | P.CRDCN ---
History of Present Illness Consult date: 08/02/20 History of present illness: HISTORY OF PRESENT ILLNESS: This is a 89-year-old male with a past medical history significant for COPD, CVA, nicotine dependence, coronary artery disease, and chronic kidney disease. Patient follows in the office with Dr. French. We have been asked to see the patient in consultation for congestive heart failure. Patient examined at the bedside. Patient states he was constipated and did not have bowel movement for 9 days. He reports taking a couple bottles of magnesium citrate with relief of his constipation. He states he went to his family doctor yesterday to have some blood work drawn and the physician there recommended he come to the emergency room. The patient is unable to state exactly why the physician wanted him to come to the hospital. The patient states he is not having any shortness of micaela th. He denies any chest pain or pressure. Denies dizziness or lightheadedness. Denies fever or cough. EKG reveals sinus mechanism. Incomplete left bundle-branch. LVH. Chest xray no acute process. Correlate for COPD. Laboratory data: WBC 7.5. Hemoglobin 11.4. Platelet count 323. Sodium 139. Potassium 4.8. BUN 49. Creatinine 2.68. BNP 11,100. Troponin 0.200. 0.141. Current home cardiac medications include hydralazine 50 mg twice a day, metoprolol 25 mg twice a day, Imdur 30 mg daily, Lasix 20 mg twice a day, Plavix 75 mg daily, Lipitor 40 mg daily, aspirin 81 mg daily Most recent echocardiogram obtained on 07/21/2020 revealed ejection fraction 25- 30% Cardiac catheterization history: 07/20/[address] French. Patient underwent PCI to the proximal/mid RCA. REVIEW OF SYSTEMS: At the time of my exam: CONSTITUTIONAL: Denies fever or chills. HEENT: Denies blurred vision, vision changes, or eye pain. Denies hemoptysis CARDIOVASCULAR: Denies chest pain. Denies orthopnea. Denies PND. Denies palpitations RESPIRATORY: Denies shortness of breath. GASTROINTESTINAL: Denies abdominal pain. Denies nausea or vomiting. HEMATOLOGIC: Denies bleeding disorders. GENITOURINARY: Denies any blood in urine. SKIN: Denies pruitis. Denies rash. PHYSICAL EXAM: VITAL SIGNS: Reviewed. GENERAL: Well-developed in no acute distress. HEENT: Head is normocephalic. Pupils are equal, round. Sclerae anicteric. Mucous membranes of the mouth are moist. Neck supple. No JVD or thyromegaly LUNGS: Respirations even and unlabored. Lungs essentially clear to auscultation bilaterally. HEART: Regular rate and rhythm. S1 and S2 heard. ABDOMEN: Soft. Nondistended. Nontender. EXTREMITIES: Normal range of motion. No clubbing or cyanosis. Peripheral pulses intact. No lower extremity edema NEUROLOGIC: Awake and alert. Oriented x 3. ASSESSMENT: Mild exacerbation of chronic systolic heart failure, ejection fraction 25-30% Coronary artery disease with PCI to RCA, July 2020 Ischemic cardiomyopathy COPD Abnormal troponins, not indicative of acute coronary syndrome Chronic kidney disease Hypertension CVA/TIA Nicotine dependence Hypermagnesemia PLAN: No need to repeat echocardiogram as this was performed on 07/21/2020 Continue IV Lasix for today. Will transition Lasix to oral dosing tomorrow: 40mg in AM and 20mg in the afternoon Continue dual antiplatelet therapy Resume additional home cardiac medications Begin losartan 12.5 mg daily Monitor kidney function Smoking cessation encouraged Further recommendations pending patient's course Nurse practitioner note has been reviewed by physician. Signing provider agrees with the documented findings, assessment, and plan of care. Past Medical History Past Medical History: COPD, CVA/TIA, GERD/Reflux, Hypertension, Prostate Disorder, Renal Disease Additional Past Medical History / Comment(s): TIAs, BPH, CKD, neuropathy bilateral hands Last Myocardial Infarction Date:: 07/20/2020 History of Any Multi-Drug Resistant Organisms: None Reported Past Surgical History: Heart Catheterization, Heart Catheterization With Stent, Hernia Repair Additional Past Surgical History / Comment(s): R caratid endartectomy, bilateral cataracts removed/lens implants, cardiac cath-normal, R inguinal hernia repair, colonoscopy. Past Anesthesia/Blood Transfusion Reactions: No Reported Reaction Date of Last Stent Placement:: 07/20/20 Past Psychological History: No Psychological Hx Reported Smoking Status: Current every day smoker Past Alcohol Use History: None Reported Past Drug Use History: None Reported - Past Family History Mother Family Medical History: Diabetes Mellitus Additional Family Medical History / Comment(s): Mother lived to be 86yrs old. Father Family Medical History: Respiratory Disorder Additional Family Medical History / Comment(s): Father worked in the [employer] and had black lung. He at the age of 78yrs. Medications and Allergies Home Medications Medication Instructions Recorded Confirmed Type Tamsulosin [Flomax] 0.4 mg PO DAILY 03/18/16 08/01/20 History Omeprazole 20 mg PO DAILY PRN 07/12/20 08/01/20 History Tiotropium 2.5 Mcg/Puff [Spiriva 1 puff INHALATION RT-BID 07/12/20 08/01/20 Hi story Respimat 2.5 Mcg] Albuterol Inhaler [Ventolin Hfa 1 puff INHALATION RT-QID PRN #1 07/15/20 08/01/20 Rx Inhaler] bottle Aspirin 81 mg PO DAILY #30 chew 07/15/20 08/01/20 Rx Atorvastatin [Lipitor] 40 mg PO HS #30 tab 07/15/20 08/01/20 Rx Isosorbide Mononitrate ER [Imdur] 30 mg PO DAILY #30 tab.er.24h 07/15/20 08/01/20 Rx Metoprolol Tartrate [Lopressor] 25 mg PO BID #60 tab 07/15/20 08/01/20 Rx hydrALAZINE HCL [Apresoline] 50 mg PO BID #60 tab 07/15/20 08/01/20 Rx Budesonide-Formot 160-4.5 Mcg 2 puff INHALATION RT-BID 07/20/20 08/01/20 History [Symbicort 160-4.5 Mcg Inhaler] Clopidogrel [Plavix] 75 mg PO DAILY 14 Days #14 tab 07/24/20 08/01/20 Rx Furosemide [Lasix] 20 mg PO BID@0800,1600 08/01/20 08/01/20 History Nitroglycerin Sl Tabs [Nitrostat] 0.4 mg SL Q5M PRN 08/01/20 08/01/20 History Allergies Allergy/AdvReac Type Severity Reaction Status Date / Time sulfur dioxide Allergy Unknown Verified 08/01/20 14:06 Physical Exam Vitals: Vital Signs Temp Pulse Pulse Pulse Resp BP BP 08/02/20 12:03 96.6 F L 79 16 138/68 08/02/20 09:09 77 08/02/20 08:00 97.8 F 77 20 152/79 08/02/20 07:48 78 08/02/20 07:36 78 08/02/20 04:00 98.0 F 77 17 146/62 08/02/20 02:00 81 17 08/02/20 00:00 98.7 F 81 17 122/52 08/01/20 20:32 66 08/01/20 20:24 64 08/01/20 20:00 97.7 F 70 18 176/61 08/01/20 19:03 97.4 F L 98 141/75 08/01/20 18:22 86 18 159/77 08/01/20 16:19 80 16 162/79 08/01/20 15:21 97.7 F 70 18 176/61 08/01/20 14:20 82 08/01/20 14:11 84 08/01/20 13:48 18 Pulse Ox 08/02/20 12:03 08/02/20 09:09 08/02/20 08:00 93 L 08/02/20 07:48 08/02/20 07:36 92 L 08/02/20 04:00 95 08/02/20 02:00 08/02/20 00:00 93 L 08/01/20 20:32 08/01/20 20:24 08/01/20 20:00 98 08/01/20 19:03 96 08/01/20 18:22 94 L 08/01/20 16:19 96 08/01/20 15:21 98 08/01/20 14:20 08/01/20 14:11 08/01/20 13:48 Intake and Output 08/01/20 08/02/20 08/02/20 22:59 06:59 14:59 Intake Total 240 Balance 240 Intake: Oral 240 Other: Voiding Method Toilet # Voids 1 1 # Bowel Movements 0 Weight 70.76 kg 67.5 kg Results 08/01/20 13:54 08/02/20 07:10 Cardiac Enzymes 08/01/20 08/01/20 08/02/20 Range/Units 13:54 13:54 07:10 AST 17 (17-59) U/L Troponin I 0.200 H* 0.141 H* (0.000-0.034) ng/mL Coagulation 08/01/20 Range/Units 13:54 PT 10.4 (9.0-12.0) sec APTT 25.9 (22.0-30.0) sec CBC 08/01/20 Range/Units 13:54 WBC 7.5 (3.8-10.6) k/uL RBC 3.90 L (4.30-5.90) m/uL Hgb 11.4 L (13.0-17.5) gm/dL Hct 35.5 L (39.0-53.0) % Plt Count 323 (150-450) k/uL Comprehensive Metabolic Panel 08/01/20 08/02/20 Range/Units 13:54 07:10 Sodium 139 139 (137-145) mmol/L Potassium 4.4 4.8 (3.5-5.1) mmol/L Chloride 102 105 (98-107) mmol/L Carbon Dioxide 26 24 (22-30) mmol/L BUN 46 H 49 H (9-20) mg/dL Creatinine 2.72 H 2.68 H (0.66-1.25) mg/dL Glucose 195 H 249 H (74-99) mg/dL Calcium 9.2 8.6 (8.4-10.2) mg/dL AST 17 (17-59) U/L ALT 11 (4-49) U/L Alkaline Phosphatase 85 (38-126) U/L Total Protein 7.1 (6.3-8.2) g/dL Albumin 4.0 (3.5-5.0) g/dL Current Medications Generic Name Dose Route Start Last Admin Trade Name Freq PRN Reason Stop Dose Admin Aspirin 81 mg 08/02/20 18:29 Aspirin 81 Mg PO DAILY [facility] Atorvastatin Calcium 40 mg 08/01/20 21:00 08/01/20 20:12 Atorvastatin 40 Mg Tab PO 40 mg HS MO[facility] Administration Budesonide/Formoterol Fumarate 2 puff 08/01/20 20:00 08/02/20 07:35 Symbicort 160-4.5 Mcg Inhaler INHALATION 2 puff RT-BID MO[facility] Administration Clopidogrel Bisulfate 75 mg 08/02/20 09:00 08/02/20 09:45 Clopidogrel 75 Mg Tab PO 75 mg DAILY [facility] Administration Furosemide 20 mg 08/01/20 18:45 08/02/20 11:22 Furosemide 10 Mg/Ml 2 Ml Vial IV 20 mg Q12HR [facility] Administration Heparin Sodium (Porcine) 5,000 unit 08/01/20 21:00 08/02/20 09:57 Heparin Sodium,Porcine 5,000 Unit/Ml 1 Ml Vial SQ 5,000 unit Q12HR [facility] Administration Hydralazine HCl 50 mg 08/01/20 21:00 08/02/20 09:47 Hydralazine Hcl 50 Mg Tab PO 50 mg BID [facility] Administration Ceftriaxone Sodium 1 gm/ 50 mls @ 100 mls/hr 08/01/20 18:45 08/02/20 11:23 Sodium Chloride IVPB 100 mls/hr Q24HR [facility] Administration Ipratropium [place] 0.5 mg 08/01/20 20:00 08/02/20 11:12 Ipratropium 0.5 Mg/2.5 Ml Nebu INHALATION Not Given RT-QID [facility] Isosorbide Mononitrate 30 mg 08/02/20 09:00 08/02/20 09:48 Isosorbide Mononitrate Er 30 Mg Tab.Er.24h PO 30 mg DAILY [facility] Administration Losartan Potassium 12.5 mg 08/02/20 11:00 Losartan 25 Mg Tab PO DAILY [facility] Methylprednisolone Sodium Succinate 40 mg 08/01/20 18:30 08/02/20 11:21 Methylprednisolone Sod Succi 40 Mg/Ml 1 Ml Vial IV 40 mg Q8HR [facility] Administration Metoprolol Tartrate 25 mg 08/01/20 21:00 08/02/20 09:48 Metoprolol Tartrate 25 Mg Tab PO 25 mg BID [facility] Administration Naloxone HCl 0.2 mg 08/01/20 14:48 Naloxone 0.4 Mg/Ml 1 Ml Vial IV Q2M PRN Opioid Reversal Nitroglycerin 0.4 mg 08/01/20 18:29 Nitroglycerin Sl Tabs 0.4 Mg Tab SUBLINGUAL Q5M PRN Chest Pain Pantoprazole Sodium 40 mg 08/02/20 07:30 08/02/20 06:29 Pantoprazole 40 Mg Tablet PO 40 mg AC-[id number] [facility] Administration Senna/Docusate Sodium 1 each 08/01/20 18:30 Sennosides-Docusate Sodium 1 Each Tab PO BID PRN Constipation Tamsulosin HCl 0.4 mg 08/02/20 09:00 08/02/20 09:49 Tamsulosin 0.4 Mg Cap.Er.24h PO 0.4 mg DAILY [facility] Administration Intake and Output 08/01/20 08/02/20 08/02/20 22:59 06:59 14:59 Intake Total 240 Balance 240 Intake: Oral 240 Other: Voiding Method Toilet # Voids 1 1 # Bowel Movements 0 Weight 70.76 kg 67.5 kg 08/01/20 13:54 08/02/20 07:10
--- NOTE | 2020-08-02 15:23 | P.PN ---
Subjective his is a pleasant 89 years old male with past medical history of transient ischemic attack, COPD, gastroesophageal reflux disease, hypertension, benign prostatic hypertrophy, chronic kidney disease. He [place] up [place] [facility] He was recently admitted to the hospital twice, 07/12-07/15 for acute on chronic systolic CHF with ejection fraction 20-25% and possible elements of acute coronary syndrome at that time community reinvestment act officer recommended medical therapy, then patient was admitted again 07/20-07/24 for acute inferior STEMI, where cardiac cath was done and stent placement of the RCA. [facility] where he was sent to the emergency room again for generalized weakness associated with dyspnea. Patient feels generally weak which is affecting his ability to walk. He has little cuff but no chest pain. He is not on home oxygen. However he has been complaining of from dyspnea especially with exertion for the last few days Patient also constipated for 9 days and 2 days ago he consumed 2 bottles of 8 pounds of magnesium, followed by about 5-6 bowel movements where 2-3 of them were at night and woke him from sleep, especially when he coughs. Yesterday he had one bowel movement and today he did not have any bowel movement. However patient denies abdominal pain or vomiting Patient smokes 1-1.5 pack per day, his cutting down to 4 cigarettes per day. He denies alcohol or illicit drugs On admission vitals are stable and he is saturating 96% on room air. He is afebrile. CBC is unremarkable except for mild anemia with hemoglobin 11.4. INR is 1.0, creatinine is stable at 2.7, with baseline 2.0-2.4. Also patient has worsening troponin 0.2 compared to baseline of 0.07-0.09[place] [address], compared to last week of 6700, UA is suspicious of infection. Coronal virus not detected EKG showing normal sinus rhythm at [address]-T changes and QTC 452. Chest x-ray: No acute process, correlate for COPD In the emergency room patient was started on normal saline at 75 mL per hour which is a stopped now. 08/02/2020 Patient feels better today and a breathing much easier to the degree that he was asking to go home today at however it was felt not radiate. Urine culture still pending and community reinvestment act officer recommended one more day of IV Lasix. No dyspnea or cough and no chest pain. Patient with no significant urinary symptoms like no dysuria or increased frequency. And his weakness is improving. No leg edema. No wheezing. Currently he is on room air. He is saturating 93%. His creatinine is slightly improved 2.6 Cartilage team on the case and they recommended to continue with IV Lasix today and switch to oral tomorrow Review of Systems CONSTITUTIONAL: No fever, no malaise, no fatigue HEENT: No recent visual problems or hearing problems. Denied any sore throat. CARDIOVASCULAR: No orthopnea, PND, no palpitations, no syncope. PULMONARY: No chest wall tenderness, no hemoptysis. GASTROINTESTINAL: No diarrhea, no nausea, no vomiting, no abdominal pain. Normoactive bowel sounds. NEUROLOGICAL: No headaches, no weakness, no numbness. Active Medications Generic Name Dose Route Start Last Admin Trade Name Freq PRN Reason Stop Dose Admin Aspirin 81 mg 08/02/20 18:29 Aspirin 81 Mg PO DAILY [facility] Atorvastatin Calcium 40 mg 08/01/20 21:00 08/01/20 20:12 Atorvastatin 40 Mg Tab PO 40 mg HS [facility] Administration Budesonide/Formoterol Fumarate 2 puff 08/01/20 20:00 08/02/20 07:35 Symbicort 160-4.5 Mcg Inhaler INHALATION 2 puff RT-BID [facility] Administration Clopidogrel Bisulfate 75 mg 08/02/20 09:00 08/02/20 09:45 Clopidogrel 75 Mg Tab PO 75 mg DAILY [facility] Administration Furosemide 20 mg 08/01/20 18:45 08/02/20 11:22 Furosemide 10 Mg/Ml 2 Ml Vial IV 20 mg Q12HR [facility] Administration Heparin Sodium (Porcine) 5,000 unit 08/01/20 21:00 08/02/20 09:57 Heparin Sodium,Porcine 5,000 Unit/Ml 1 Ml Vial SQ 5,000 unit Q12HR [facility] Administration Hydralazine HCl 50 mg 08/01/20 21:00 08/02/20 09:47 Hydralazine Hcl 50 Mg Tab PO 50 mg BID [facility] Administration Ceftriaxone Sodium 1 gm/ 50 mls @ 100 mls/hr 08/01/20 18:45 08/02/20 11:23 Sodium Chloride IVPB 100 mls/hr Q24HR [facility] Administration Ipratropium [place] 0.5 mg 08/01/20 20:00 08/02/20 14:33 Ipratropium 0.5 Mg/2.5 Ml Nebu INHALATION 0.5 mg RT-QID [facility] Administration Isosorbide Mononitrate 30 mg 08/02/20 09:00 08/02/20 09:48 Isosorbide Mononitrate Er 30 Mg Tab.Er.24h PO 30 mg DAILY [facility] Administration Losartan Potassium 12.5 mg 08/02/20 11:00 Losartan 25 Mg Tab PO DAILY [facility] Methylprednisolone Sodium Succinate 40 mg 08/01/20 18:30 08/02/20 11:21 Methylprednisolone Sod Succi 40 Mg/Ml 1 Ml Vial IV 40 mg Q8HR [facility] Administration Metoprolol Tartrate 25 mg 08/01/20 21:00 08/02/20 09:48 Metoprolol Tartrate 25 Mg Tab PO 25 mg BID [facility] Administration Naloxone HCl 0.2 mg 08/01/20 14:48 Naloxone 0.4 Mg/Ml 1 Ml Vial IV Q2M PRN Opioid Reversal Nitroglycerin 0.4 mg 08/01/20 18:29 Nitroglycerin Sl Tabs 0.4 Mg Tab SUBLINGUAL Q5M PRN Chest Pain Pantoprazole Sodium 40 mg 08/02/20 07:30 08/02/20 06:29 Pantoprazole 40 Mg Tablet PO 40 mg AC-BRKFST [facility] Administration Senna/Docusate Sodium 1 each 08/01/20 18:30 Sennosides-Docusate Sodium 1 Each Tab PO BID PRN Constipation Tamsulosin HCl 0.4 mg 08/02/20 09:00 08/02/20 09:49 Tamsulosin 0.4 Mg Cap.Er.24h PO 0.4 mg DAILY [facility] Administration Objective - Vital Signs Vital signs: Vital Signs Temp 98.0 F 08/02/20 15:05 Pulse 76 08/02/20 15:05 Resp 18 08/02/20 15:05 BP 119/65 08/02/20 15:05 Pulse Ox 93 L 08/02/20 15:05 Intake & Output 08/01/20 08/02/20 08/02/20 18:59 06:59 18:59 Intake Total 240 720 Balance 240 720 Weight 70.76 kg 67.5 kg Intake: Oral 240 720 Other: Voiding Method Toilet # Voids 1 1 # Bowel Movements 1 - Exam GENERAL: The patient is alert and oriented x3, not in any acute distress. Well developed, well nourished. HEENT: Pupils are round and equally reacting to light. EOMI. No scleral icterus. No conjunctival pallor. Normocephalic, atraumatic. No pharyngeal erythema. No thyromegaly. CARDIOVASCULAR: S1 and S2 present. No murmurs, rubs, or gallops. PULMONARY: Chest is clear to auscultation, no wheezing or crackles. ABDOMEN: Soft, nontender, nondistended, normoactive bowel sounds. No palpable organomegaly. MUSCULOSKELETAL: No joint swelling or deformity. EXTREMITIES: No cyanosis, clubbing, or pedal edema. NEUROLOGICAL: Gross neurological examination did not reveal any focal deficits. SKIN: No rashes. no petechiae. - Labs CBC & Chem 7: 08/01/20 13:54 08/02/20 07:10 Labs: Abnormal Lab Results - Last 24 Hours (Table) 08/01/20 08/01/20 08/02/20 Range/Units 13:54 15:16 07:10 BUN 49 H (9-20) mg/dL Creatinine 2.68 H (0.66-1.25) mg/dL Glucose 249 H (74-99) mg/dL Magnesium 3.0 H (1.6-2.3) mg/dL Troponin I 0.200 H* (0.000-0.034) ng/mL Urine Protein Trace H (Negative) Ur Leukocyte Esterase Large H (Negative) Urine WBC 64 H (0-5) /hpf Urine Bacteria Rare H (None) /hpf Hyaline Casts 4 H (0-2) /lpf Urine Mucus Rare H (None) /hpf 08/02/20 Range/Units 07:10 BUN (9-20) mg/dL Creatinine (0.66-1.25) mg/dL Glucose (74-99) mg/dL Magnesium (1.6-2.3) mg/dL Troponin I 0.141 H* (0.000-0.034) ng/mL Urine Protein (Negative) Ur Leukocyte Esterase (Negative) Urine WBC (0-5) /hpf Urine Bacteria (None) /hpf Hyaline Casts (0-2) /lpf Urine Mucus (None) /hpf Microbiology - Last 24 Hours (Table) 08/01/20 15:16 Urine Culture - Preliminary Urine,Clean Catch Assessment and Plan Assessment: acute on chronic systolic CHF with ejection fraction 20-25% Acute COPD exacerbation Worsening troponin, recent history of acute STEMI status post stent of the RCA Possible acute urinary tract infection Nicotine dependence Hypertension Chronic kidney disease, stage 3-4 History of TIA History of GERD Benign prostatic hypertrophy Plan: This is a pleasant 89 years old male who presents with ongoing CHF, COPD and possible UTI. Cardiology . IV fluids and start Lasix 40 mg twice daily. Monitor creatinine and electrolytes and input and output. Start Solu-Medrol and ceftriaxone which will cover UTI as well and bronchodilator. Physical therapy evaluation Labs and medication were reviewed.. Continue same treatment. Continue with symptomatic treatment. Resume home medication. Monitor lytes and vitals. DVT and GI prophylaxis. Further recommendations depends on the clinical course of the patient DVT prophylaxis: Subcutaneous heparin GI Prophylaxis: Ppi PT/OT: Pending Prognosis is guarded
[2020-08-02] MEDS: LOSARTAN 25 MG TAB PO SCH (17:12)
[2020-08-02] MEDS: ASPIRIN 81 MG PO SCH (17:13)
[2020-08-02] MEDS: ATORVASTATIN 40 MG TAB PO SCH (21:15)
[2020-08-03] MEDS: SYMBICORT 160-4.5 MCG INHALER INHALATION SCH (08:30)
[2020-08-03] MEDS: IPRATROPIUM 0.5 MG/2.5 ML NEBU INHALATION SCH ×3 (08:30→15:08)
[2020-08-03 08:31] VITALS: TEMP 97.7
[2020-08-03 08:39] LABS: Calcium 8.9 mg/dL (8.4-10.2); Magnesium 2.8 mg/dL (1.6-2.3); Potassium 5.1 mmol/L (3.5-5.1)
[2020-08-03] MEDS ORDERED: FUROSEMIDE 40 MG TAB PO SCH (09:15)
[2020-08-03] MEDS: METOPROLOL TARTRATE 25 MG TAB PO SCH (09:46)
[2020-08-03] MEDS: LOSARTAN 25 MG TAB PO SCH (09:46)
[2020-08-03] MEDS: hydrALAZINE HCL 50 MG TAB PO SCH (09:46)
[2020-08-03] MEDS: PANTOPRAZOLE 40 MG TABLET PO SCH (09:46)
[2020-08-03] MEDS: CLOPIDOGREL 75 MG TAB PO SCH (09:46)
[2020-08-03] MEDS: ISOSORBIDE MONONITRATE ER 30 MG TAB.ER.24H PO SCH (09:46)
[2020-08-03] MEDS: ASPIRIN 81 MG PO SCH (09:46)
[2020-08-03] MEDS: HEPARIN SODIUM,PORCINE 5,000 UNIT/ML 1 ML VIAL SQ SCH (09:47)
[2020-08-03] MEDS: methylPREDNISolone SOD SUCCI 40 MG/ML 1 ML VIAL IV SCH (09:48)
[2020-08-03] MEDS: TAMSULOSIN 0.4 MG CAP.ER.24H PO SCH (09:50)
[2020-08-03] MEDS: FUROSEMIDE 10 MG/ML 2 ML VIAL IV SCH (10:50)
--- NOTE | 2020-08-03 13:07 | P.DS ---
Providers Date of admission: 08/01/20 14:48 Attending physician: Celso Pringle MD Consults: 08/01/20 14:51 Consult Physician Urgent Consulting Provider: Joao Thapa Consult Reason/Comments: Evaluate for CHF, status post TX Do you want consulting provider notified?: Yes Primary care physician: [facility] Hospital Course: Diagnoses: acute on chronic systolic CHF with ejection fraction 20-25% Acute COPD exacerbation Worsening troponin, recent history of acute STEMI status post stent of the RCA Possible acute urinary tract infection Nicotine dependence Hypertension Chronic kidney disease, stage 3-4 History of TIA History of GERD Benign prostatic hypertrophy Hospital course: his is a pleasant 89 years old male with past medical history of transient ischemic attack, COPD, gastroesophageal reflux disease, hypertension, benign prostatic hypertrophy, chronic kidney disease. He follows up in the [facility] He was recently admitted to the hospital twice, 07/12-07/15 for acute on chronic systolic CHF with ejection fraction 20-25% and possible elements of acute coronary syndrome at that time cold roll packer sheet iron recommended medical therapy, then patient was admitted again 07/20-07/24 for acute inferior STEMI, where cardiac cath was done and stent placement of the RCA. However he went to his [facility] clinic appointment today for follow-up where he was sent to the emergency room again for generalized weakness associated with dyspnea. Patient found to have acute on chronic systolic CHF, cold roll packer sheet iron evaluated the patient, he was treated with IV Lasix with showed interval improvement, also he was treated for possible acute COPD exacerbation with IV steroids which resulted pulse upon discharge, patient will be discharged on short course of tapered prednisone. His UTI was treated with ceftriaxone, his finish his therapy. Urine culture is negative On the day of discharge patient is back to his baseline, is fully awake and oriented, no dyspnea, no exertional dyspnea. No chest pain. No change in urine or bowel habits. No fever. Patient was cleared for discharge by cold roll packer sheet iron Problems and management plan were discussed with the patient and he verbalized understanding and acceptance Patient was found stable and can be discharged home however he needs follow-up as an outpatient. Patient was instructed to follow up with PCP at the [facility] clinic within one week and he was instructed to follow up with his cold roll packer sheet iron Dr. Carter in 1-2 weeks and patient agrees Physical exam Gen: patient is a AAOx3, no distress CVS: S1-S2, RRR, no murmur Lungs: B/L CTA, no wheezing Abdomen: soft, no distention, no tenderness, positive bowel sounds Extremity: no leg edema or induration Time spent more than 35 minutes Plan - Discharge Summary Discharge Rx Participant: No New Discharge Prescriptions: New Losartan [Cozaar] 12.5 mg PO DAILY #15 tab Furosemide [Lasix] 20 mg PO HS #30 tab Furosemide [Lasix] 40 mg PO DAILY #30 tab predniSONE 10 mg PO DIRECTED #18 tab Continue Tamsulosin [Flomax] 0.4 mg PO DAILY Tiotropium 2.5 Mcg/Puff [Spiriva Respimat 2.5 Mcg] 1 puff INHALATION RT-BID Omeprazole 20 mg PO DAILY PRN PRN Reason: Gi Upset hydrALAZINE HCL [Apresoline] 50 mg PO BID #60 tab Aspirin 81 mg PO DAILY #30 chew Isosorbide Mononitrate ER [Imdur] 30 mg PO DAILY #30 tab.er.24h Atorvastatin [Lipitor] 40 mg PO HS #30 tab Metoprolol Tartrate [Lopressor] 25 mg PO BID #60 tab Albuterol Inhaler [Ventolin Hfa Inhaler] 1 puff INHALATION RT-QID PRN #1 bottle PRN Reason: Shortness Of Breath Or Wheezing Budesonide-Formot 160-4.5 Mcg [Symbicort 160-4.5 Mcg Inhaler] 2 puff INHALATION RT-BID Clopidogrel [Plavix] 75 mg PO DAILY 14 Days #14 tab Nitroglycerin Sl Tabs [Nitrostat] 0.4 mg SL Q5M PRN PRN Reason: Chest Pain Discontinued Furosemide [Lasix] 20 mg PO BID@0800,1600 Discharge Medication List Tamsulosin [Flomax] 0.4 mg PO DAILY 03/18/16 [History] Omeprazole 20 mg PO DAILY PRN 07/12/20 [History] Tiotropium 2.5 Mcg/Puff [Spiriva Respimat 2.5 Mcg] 1 puff INHALATION RT-BID 07/12/20 [History] Albuterol Inhaler [Ventolin Hfa Inhaler] 1 puff INHALATION RT-QID PRN #1 bottle 07/15/20 [Rx] Aspirin 81 mg PO DAILY #30 chew 07/15/20 [Rx] Atorvastatin [Lipitor] 40 mg PO HS #30 tab 07/15/20 [Rx] Isosorbide Mononitrate ER [Imdur] 30 mg PO DAILY #30 tab.er.24h 07/15/20 [Rx] Metoprolol Tartrate [Lopressor] 25 mg PO BID #60 tab 07/15/20 [Rx] hydrALAZINE HCL [Apresoline] 50 mg PO BID #60 tab 07/15/20 [Rx] Budesonide-Formot 160-4.5 Mcg [Symbicort 160-4.5 Mcg Inhaler] 2 puff INHALATION RT-BID 07/20/20 [History] Clopidogrel [Plavix] 75 mg PO DAILY 14 Days #14 tab 07/24/20 [Rx] Nitroglycerin Sl Tabs [Nitrostat] 0.4 mg SL Q5M PRN 08/01/20 [History] Furosemide [Lasix] 20 mg PO HS #30 tab 08/03/20 [Rx] Furosemide [Lasix] 40 mg PO DAILY #30 tab 08/03/20 [Rx] Losartan [Cozaar] 12.5 mg PO DAILY #15 tab 08/03/20 [Rx] predniSONE 10 mg PO DIRECTED #18 tab 08/03/20 [Rx] Follow up Appointment(s)/Referral(s): Harley Carter MD [STAFF PHYSICIAN] - 2 Weeks [facility],Clinic [Primary Care Provider] - 1-2 days Activity/Diet/Wound Care/Special Instructions: Heart healthy diet with fluid and salt restriction Activity is restricted until you see your doctor Discharge Disposition: HOME WITH HOME HEALTH SERVICES
[2020-08-03 13:30] VITALS: BP 168/74; PULSE 71; RESP 16
--- NOTE | 2020-08-03 14:02 | P.PN ---
Subjective Progress Note Date: 08/03/20 HISTORY OF PRESENT ILLNESS: 08/02/2020 This is a 89-year-old male with a past medical history significant for COPD, CVA, nicotine dependence, coronary artery disease, and chronic kidney disease. Patient follows in the office with Dr. French. We have been asked to see the patient in consultation for congestive heart failure. Patient examined at the bedside. Patient states he was constipated and did not have bowel movement for 9 days. He reports taking a couple bottles of magnesium citrate with relief of his constipation. He states he went to his family doctor yesterday to have some blood work drawn and the physician there recommended he come to the emergency room. The patient is unable to state exactly why the physician wanted him to come to the hospital. The patient states he is not having any shortness of breath. He denies any chest pain or pressure. Denies dizziness or lightheadedness. Denies fever or cough. EKG reveals sinus mechanism. Incomplete left bundle-branch. LVH. Chest xray no acute process. Correlate for COPD. Laboratory data: WBC 7.5. Hemoglobin 11.4. Platelet count 323. Sodium 139. Potassium 4.8. BUN 49. Creatinine 2.68. BNP 11,100. Troponin 0.200. 0.141. Current home cardiac medications include hydralazine 50 mg twice a day, metoprolol 25 mg twice a day, Imdur 30 mg daily, Lasix 20 mg twice a day, Plavix 75 mg daily, Lipitor 40 mg daily, aspirin 81 mg daily Most recent echocardiogram obtained on 07/21/2020 revealed ejection fraction 25- 30% Cardiac catheterization history: 07/20/[address] French. Patient underwen t PCI to the proximal/mid RCA. 08/03/2020 Patient examined this point the bedside. He denies chest pain or pressure. He denies shortness of breath. BUN 57. Creatinine 2.63. Vital signs are stable. Patient is hoping to be discharged home today. PHYSICAL EXAM: VITAL SIGNS: Reviewed. GENERAL: Well-developed in no acute distress. HEENT: Head is normocephalic. Pupils are equal, round. Sclerae anicteric. Mucous membranes of the mouth are moist. Neck supple. No JVD or thyromegaly LUNGS: Respirations even and unlabored. Lungs essentially clear to auscultation bilaterally. HEART: Regular rate and rhythm. S1 and S2 heard. ABDOMEN: Soft. Nondistended. Nontender. EXTREMITIES: Normal range of motion. No clubbing or cyanosis. Peripheral pulses intact. No lower extremity edema NEUROLOGIC: Awake and alert. Oriented x 3. ASSESSMENT: Mild exacerbation of chronic systolic heart failure, ejection fraction 25-30% Coronary artery disease with PCI to RCA, July 2020 Ischemic cardiomyopathy COPD Abnormal troponins, not indicative of acute coronary syndrome Chronic kidney disease Hypertension CVA/TIA Nicotine dependence Hypermagnesemia PLAN: No need to repeat echocardiogram as this was performed on 07/21/2020 Discontinue IV Lasix. Begin oral Lasix 40 mg in the morning and 20mg in the afternoon Continue dual antiplatelet therapy Continue additional cardiac medications Smoking cessation encouraged Patient is stable for discharge home today from a cardiac standpoint We will sign off. Please reconsult if needed. Nurse practitioner note has been reviewed by physician. Signing provider agrees with the documented findings, assessment, and plan of care. Objective - Vital Signs Vital signs: Vital Signs Temp 97.7 F 08/03/20 08:00 Pulse 76 08/03/20 12:08 Resp 16 08/03/20 12:00 BP 168/74 08/03/20 12:00 Pulse Ox 96 08/03/20 12:00 Intake & Output 08/02/20 08/03/20 08/03/20 18:59 06:59 18:59 Intake Total 1680 720 290 Balance 1680 720 290 Weight 68.2 kg Intake: IV 50 [id number] 1 gm In 50 Sodium Chloride 0.9% 50 ml @ 100 mls/hr IVPB Q24HR [facility] Rx#:[id number] Oral 1680 720 240 Other: Voiding Method Toilet Toilet # Voids 1 1 # Bowel Movements 1 - Labs CBC & Chem 7: 08/01/20 13:54 08/03/20 07:45 Labs: Abnormal Lab Results - Last 24 Hours (Table) 08/03/20 Range/Units 07:45 BUN 57 H (9-20) mg/dL Creatinine 2.63 H (0.66-1.25) mg/dL Glucose 210 H (74-99) mg/dL Magnesium 2.8 H (1.6-2.3) mg/dL Microbiology - Last 24 Hours (Table) 08/01/20 15:16 Urine Culture - Final Urine,Clean Catch
--- NOTE | 2020-08-03 15:21 | CDI ---
Documentation Clarification Form Date: 08/03/2020 03:18:47 PM From: Georgette Doe RN, CCDS Admit Date: 08/01/2020 02:48:00 PM Patient Name: Mary Duong Visit Number: [id number] Discharge Date: ATTENTION: The Clinical Documentation Specialists (CDI) and [facility] Coding Staff appreciate your assistance in clarifying documentation. Please respond to the clarification below the line at the bottom and electronically sign. The CDI & [facility] Coding staff will review the response and follow-up if needed. Please note: Queries are made part of the Legal Health Record. If you have any questions, please contact the author of this message via ITS. Dr. Houston E Sheet CKD stage 3-4 is documented in the H/P and discharge summary. Please render your opinion on the most appropriate diagnosis for the patient based on lab findings. History/Risk Factors: Chronic kidney disease, nephrosclerosis, Hypertension, current every day smoker Patients Historical baseline creatinine near 2.0-2.4 per H/P. Clinical Indicators: 89-year-old male with present to ED on 08/01 with complaints of generalized weakness affecting his ability to walk. 08/01 Vital sign: 147/72 98 20 97.4 95 % RA 08/01 BUN 46, Creatinine 2.7 GFR 20 08/02 BUN 49, Creatinine 2.68 GFR 20 08/03 BUN 57 Creatinine 2.63 GFR 21 Treatment: Monitor Creatinine and electrolytes daily x3 .9NS @ 75 MLS/HR (08/01 14:52 -18:30 ) Consults [summarize windows consultant's findings]: In order to capture the severity of condition, please clarify the most appropriate stage of the CKD, if known: CKD Stage 3a (GFR 45-59) CKD Stage 3b (GFR 30-44) CKD Stage 4 (GFR 15-29) Other, please specify Unable to determine [Template Last reviewed: January 2020] stage 4 MTDD
[2020-08-03] MEDS ORDERED: FUROSEMIDE 20 MG TAB PO SCH (16:00)
== END 2020-08-03 15:17 | disposition home health service (06) | DRG 280 ==
LOC: EC 12:40 → 3SCARD 14:48
PROVIDERS: ADMIT Internal Medicine; ATTEND Internal Medicine
DX: I13.0 Hypertensive heart and chronic kidney disease with heart failure and stage 1 through stage 4 chronic kidney disease, or unspecified chronic kidney disease (principal); I21.19 ST elevation (STEMI) myocardial infarction involving other coronary artery of inferior wall; I50.23 Acute on chronic systolic (congestive) heart failure; J44.1 Chronic obstructive pulmonary disease with (acute) exacerbation; N18.4 Chronic kidney disease, stage 4 (severe); N39.0 Urinary tract infection, site not specified; I25.10 Atherosclerotic heart disease of native coronary artery without angina pectoris; F17.210 Nicotine dependence, cigarettes, uncomplicated; Z86.73 Personal history of transient ischemic attack (TIA), and cerebral infarction without residual deficits; Z20.822 Contact with and (suspected) exposure to COVID-19; I25.5 Ischemic cardiomyopathy; K59.00 Constipation, unspecified; N40.0 Benign prostatic hyperplasia without lower urinary tract symptoms; Z79.02 Long term (current) use of antithrombotics/antiplatelets; E83.41 Hypermagnesemia; D64.9 Anemia, unspecified; Z79.51 Long term (current) use of inhaled steroids; Z79.82 Long term (current) use of aspirin; Z79.899 Other long term (current) drug therapy; Z83.3 Family history of diabetes mellitus; Z98.42 Cataract extraction status, left eye; Z98.41 Cataract extraction status, right eye; Z96.1 Presence of intraocular lens; Z88.8 Allergy status to other drugs, medicaments and biological substances; G62.9 Polyneuropathy, unspecified; Z95.5 Presence of coronary angioplasty implant and graft
CPT/HCPCS: 36415; 71046; 80048; 80053; 81001; 83605; 83735; 83880; 84100; 84439; 84443; 84481; 84484; 85025; 85610; 85730; 87086; 87635; 93005; 94640; 94760; 96360; 96361; 99285

== ENCOUNTER 2020-11-02 22:43 | Observation (INO) | payer OTHER, MEDICARE ==
[2020-11-02] MEDS ORDERED: SODIUM CHLORIDE 0.9% 1,000 ML IV STA (22:52)
--- NOTE | 2020-11-02 22:53 | ED ---
Weakness HPI - General Chief complaint: Weakness Stated complaint: High blood pressure, fall Time Seen by Provider: 11/02/20 22:51 Source: patient, RN notes reviewed, old records reviewed Mode of arrival: wheelchair Limitations: no limitations - History of Present Illness Initial comments: This is an 82-year-old male DF for evaluation patient Dese for evaluation of a near syncopal event patient felt weak went to the knees fell backward his head. Current headache but continues to feel weak. No nausea vomiting no diarrhea. No chest pain or shortness of breath. Patient states he just felt very weak anytime he tried to get up and move around today. Even just taking a walk. Patient states she's never felt this week before he was also feeling very sleepy throughout the day MD Complaint: generalized weakness, lack of energy, difficulty walking -: hour(s) Location: generalized Severity: moderate Severity scale (1-10): 6 Consistency: constant Improves with: none, evening Context: recent illness, recent surgery Associated Symptoms: denies other symptoms - Related Data Home Medications Medication Instructions Recorded Confirmed Tamsulosin [Flomax] 0.4 mg PO DAILY 03/18/16 08/01/20 Omeprazole 20 mg PO DAILY PRN 07/12/20 08/01/20 Tiotropium 2.5 Mcg/Puff [Spiriva 1 puff INHALATION RT-BID 07/12/20 08/01/20 Respimat 2.5 Mcg] Budesonide-Formot 160-4.5 Mcg 2 puff INHALATION RT-BID 07/20/20 08/01/20 [Symbicort 160-4.5 Mcg Inhaler] Nitroglycerin Sl Tabs [Nitrostat] 0.4 mg SL Q5M PRN 08/01/20 08/01/20 Previous Rx's Medication Instructions Recorded Albuterol Inhaler [Ventolin Hfa 1 puff INHALATION RT-QID PRN #1 07/15/20 Inhaler] bottle Aspirin 81 mg PO DAILY #30 chew 07/15/20 Atorvastatin [Lipitor] 40 mg PO HS #30 tab 07/15/20 Isosorbide Mononitrate ER [Imdur] 30 mg PO DAILY #30 tab.er.24h 07/15/20 Metoprolol Tartrate [Lopressor] 25 mg PO BID #60 tab 07/15/20 hydrALAZINE HCL [Apresoline] 50 mg PO BID #60 tab 07/15/20 Clopidogrel [Plavix] 75 mg PO DAILY 14 Days #14 tab 07/24/20 Furosemide [Lasix] 20 mg PO HS #30 tab 08/03/20 Furosemide [Lasix] 40 mg PO DAILY #30 tab 08/03/20 Losartan [Cozaar] 12.5 mg PO DAILY #15 tab 08/03/20 predniSONE 10 mg PO DIRECTED #18 tab 08/03/20 Allergies Allergy/AdvReac Type Severity Reaction Status Date / Time sulfur dioxide Allergy Unknown Verified 11/02/20 22:45 Review of Systems ROS Statement: Those systems with pertinent positive or pertinent negative responses have been documented in the HPI. ROS Other: All systems not noted in ROS Statement are negative. Past Medical History Past Medical History: COPD, CVA/TIA, GERD/Reflux, Hypertension, Prostate Disorder, Renal Disease Additional Past Medical History / Comment(s): TIAs, BPH, CKD, neuropathy bilateral hands Last Myocardial Infarction Date:: 07/20/2020 History of Any Multi-Drug Resistant Organisms: None Reported Past Surgical History: Heart Catheterization, Heart Catheterization With Stent, Hernia Repair Additional Past Surgical History / Comment(s): R caratid endartectomy, bilateral cataracts removed/lens implants, cardiac cath-normal, R inguinal hernia repair, colonoscopy. Past Anesthesia/Blood Transfusion Reactions: No Reported Reaction Date of Last Stent Placement:: 07/20/20 Past Psychological History: No Psychological Hx Reported Smoking Status: Current every day smoker Past Alcohol Use History: None Reported Past Drug Use History: None Reported - Past Family History Mother Family Medical History: Diabetes Mellitus Additional Family Medical History / Comment(s): Mother lived to be 86yrs old. Father Family Medical History: Respiratory Disorder Additional Family Medical History / Comment(s): Father worked in the [employer] and had black lung. He at the age of 78yrs. General Exam Limitations: no limitations General appearance: alert, in no apparent distress Head exam: Present: atraumatic, normocephalic, normal inspection Eye exam: Present: normal appearance, PERRL, EOMI. Absent: scleral icterus, conjunctival injection, periorbital swelling ENT exam: Present: normal exam, mucous membranes moist Neck exam: Present: normal inspection. Absent: tenderness, meningismus, lymphadenopathy Respiratory exam: Present: normal lung sounds bilaterally. Absent: respiratory distress, wheezes, rales, rhonchi, stridor Cardiovascular Exam: Present: regular rate, normal rhythm, normal heart sounds. Absent: systolic murmur, diastolic murmur, rubs, gallop, clicks GI/Abdominal exam: Present: soft, normal bowel sounds. Absent: distended, tenderness, guarding, rebound, rigid Extremities exam: Present: normal inspection, full ROM, normal capillary refill. Absent: tenderness, pedal edema, joint swelling, calf tenderness Back exam: Present: normal inspection Neurological exam: Present: alert, oriented X3, CN II-XII intact Psychiatric exam: Present: normal affect, normal mood Skin exam: Present: warm, dry, intact, normal color. Absent: rash Course Vital Signs 11/02/20 11/02/20 11/02/20 22:46 23:32 23:52 Temperature 97.6 F Pulse Rate 87 79 Pulse Rate [ 73 Pulse Oximetery ] Respiratory 20 18 Rate Blood Pressure 208/111 195/97 O2 Sat by Pulse 96 97 Oximetry 11/03/20 11/03/20 11/03/20 00:32 00:47 00:51 Temperature Pulse Rate 84 83 87 Pulse Rate [ Pulse Oximetery ] Respiratory 18 18 Rate Blood Pressure 183/120 200/103 181/84 O2 Sat by Pulse 97 97 Oximetry 11/03/20 11/03/20 11/03/20 01:00 01:05 01:10 Temperature Pulse Rate Pulse Rate [ Pulse Oximetery ] Respiratory Rate Blood Pressure 167/81 180/74 174/83 O2 Sat by Pulse Oximetry 11/03/20 11/03/20 11/03/20 01:15 01:20 01:25 Temperature Pulse Rate 89 90 Pulse Rate [ Pulse Oximetery ] Respiratory Rate Blood Pressure 172/78 168/76 169/86 O2 Sat by Pulse 96 96 Oximetry - Reevaluation(s) Reevaluation #1: 11/03/20 01:49 Medical records reviewed Reevaluation #2: 11/03/20 01:49 Patient symptoms are improved although still feels weak and lightheaded Reevaluation #3: 11/03/20 01:49 Patient continued to deny syncopal event and has no syncope here in the ER Reevaluation #4: 11/03/20 01:50 Blood pressure is improved Reevaluation #5: 11/03/20 01:50 patient is informed of results and questions have been answered - Consultations Consultation #1: Spoke with [facility] to agrees to admit patient EKG Findings - EKG Comments: EKG Findings:: EKG is sinus rhythm 76 VT 146 QRS 110 QTc 454 Medical Decision Making - Medical Decision Making 89 male DF for evaluation of a near syncopal event weakness went to his knees fell back hitting his head, no traumatic injury to the brain blood pressure was elevated blood pressure now controlled. Patient still feels weak will be a dmitted for observation - Lab Data Result diagrams: 11/02/20 22:52 11/02/20 22:52 Lab Results 11/02/20 11/02/20 11/02/20 Range/Units 22:52 22:52 22:52 WBC 8.1 (3.8-10.6) k/uL RBC 4.20 L (4.30-5.90) m/uL Hgb 12.4 L (13.0-17.5) gm/dL Hct 37.0 L (39.0-53.0) % MCV 88.1 (80.0-100.0) fL MCH 29.6 (25.0-35.0) pg MCHC 33.6 (31.0-37.0) g/dL RDW 13.7 (11.5-15.5) % Plt Count 293 (150-450) k/uL MPV 7.0 Neutrophils % 67 % Lymphocytes % 22 % Monocytes % 5 % Eosinophils % 5 % Basophils % 1 % Neutrophils # 5.4 (1.3-7.7) k/uL Lymphocytes # 1.8 (1.0-4.8) k/uL Monocytes # 0.4 (0-1.0) k/uL Eosinophils # 0.4 (0-0.7) k/uL Basophils # 0.1 (0-0.2) k/uL PT 10.2 (9.0-12.0) sec INR 0.9 (<1.2) APTT 24.4 (22.0-30.0) sec Sodium 140 (137-145) mmol/L Potassium 4.4 (3.5-5.1) mmol/L Chloride 104 (98-107) mmol/L Carbon Dioxide 26 (22-30) mmol/L Anion Gap 10 mmol/L BUN 27 H (9-20) mg/dL Creatinine 1.72 H (0.66-1.25) mg/dL Est GFR (CKD-EPI)AfAm 40 (>60 ml/min/1.73 sqM) Est GFR (CKD-EPI)NonAf 35 (>60 ml/min/1.73 sqM) Glucose 170 H (74-99) mg/dL Plasma Lactic Acid Fran (0.7-2.0) mmol/L Calcium 9.5 (8.4-10.2) mg/dL Phosphorus 3.5 (2.5-4.5) mg/dL Magnesium 2.0 (1.6-2.3) mg/dL Total Bilirubin 0.3 (0.2-1.3) mg/dL AST 20 (17-59) U/L ALT 12 (4-49) U/L Alkaline Phosphatase 81 (38-126) U/L Creatine Kinase 49 L (55-170) U/L Troponin I (0.000-0.034) ng/mL Total Protein 7.0 (6.3-8.2) g/dL Albumin 4.1 (3.5-5.0) g/dL Lipase 25 (23-300) U/L 11/02/20 11/02/20 Range/Units 22:52 22:52 WBC (3.8-10.6) k/uL RBC (4.30-5.90) m/uL Hgb (13.0-17.5) gm/dL Hct (39.0-53.0) % MCV (80.0-100.0) fL MCH (25.0-35.0) pg MCHC (31.0-37.0) g/dL RDW (11.5-15.5) % Plt Count (150-450) k/uL MPV Neutrophils % % Lymphocytes % % Monocytes % % Eosinophils % % Basophils % % Neutrophils # (1.3-7.7) k/uL Lymphocytes # (1.0-4.8) k/uL Monocytes # (0-1.0) k/uL Eosinophils # (0-0.7) k/uL Basophils # (0-0.2) k/uL PT (9.0-12.0) sec INR (<1.2) APTT (22.0-30.0) sec Sodium (137-145) mmol/L Potassium (3.5-5.1) mmol/L Chloride (98-107) mmol/L Carbon Dioxide (22-30) mmol/L Anion Gap mmol/L BUN (9-20) mg/dL Creatinine (0.66-1.25) mg/dL Est GFR (CKD-EPI)AfAm (>60 ml/min/1.73 sqM) Est GFR (CKD-EPI)NonAf (>60 ml/min/1.73 sqM) Glucose (74-99) mg/dL Plasma Lactic Acid Fran 1.2 (0.7-2.0) mmol/L Calcium (8.4-10.2) mg/dL Phosphorus (2.5-4.5) mg/dL Magnesium (1.6-2.3) mg/dL Total Bilirubin (0.2-1.3) mg/dL AST (17-59) U/L ALT (4-49) U/L Alkaline Phosphatase (38-126) U/L Creatine Kinase (55-170) U/L Troponin I 0.060 H* (0.000-0.034) ng/mL Total Protein (6.3-8.2) g/dL Albumin (3.5-5.0) g/dL Lipase (23-300) U/L - Radiology Data Radiology results: report reviewed (CT brain C-spine negative for acute disease ), image reviewed Disposition Clinical Impression: Near syncope, Dehydration, Weakness, Hypertension, Dizziness Disposition: ADMITTED IP TO THIS HOSP Condition: Good Is patient prescribed a controlled substance at d/c from ED?: No Referrals: [facility],Clinic [Primary Care Provider] - 1-2 days
[2020-11-02 23:43] LABS: Basophils # (A) 0.1 k/uL (0-0.2); Basophils % (A) 1 %; Eosinophils # (A) 0.4 k/uL (0-0.7); Eosinophils % (A) 5 %; HGB 12.4 gm/dL (13.0-17.5); Lymphocytes # (A) 1.8 k/uL (1.0-4.8); Lymphocytes % (A) 22 %; MCH 29.6 pg (25.0-35.0); MCHC 33.6 g/dL (31.0-37.0); MCV 88.1 fL (80.0-100.0); Monocytes # (A) 0.4 k/uL (0-1.0); Monocytes % (A) 5 %; Neutrophils # (A) 5.4 k/uL (1.3-7.7); Neutrophils % (A) 67 %; Platelet Count 293 k/uL (150-450); RDW 13.7 % (11.5-15.5); WBC 8.1 k/uL (3.8-10.6)
[2020-11-02 23:53] LABS: Albumin 4.1 g/dL (3.5-5.0); Calcium 9.5 mg/dL (8.4-10.2); Phosphorus 3.5 mg/dL (2.5-4.5); Potassium 4.4 mmol/L (3.5-5.1); Total Bilirubin 0.3 mg/dL (0.2-1.3)
--- NOTE | 2020-11-02 23:56 | CT ---
EXAMINATION TYPE: CT brain andrew benson DATE OF EXAM: 11/02/2020 COMPARISON: CT brain 04/28/2019 HISTORY: fall CT DLP: 32483.1 mGycm Automated exposure control for dose reduction was used. There is patchy hypodensity in the periventricular white matter. There is no mass effect nor midline shift. There is no sign of intracranial hemorrhage. The calvarium is intact. Cervical vertebra have normal alignment. There is moderate narrowing at C6-7 disc space with spur for mation and sclerosis. There is mild multilevel cervical hypertrophic facet arthropathy. There is no c ompression fracture. There is normal aeration of the mastoid sinuses. The skull base is intact. IMPRESSION: Cerebral atrophy. No acute intracranial abnormality. Chronic small vessel ischemia. No change. Moderate spondylosis at C6-7. No fracture seen.
[2020-11-02 23:58] LABS: INR 0.9 (<1.2); Partial Thromboplastin Time 24.4 sec (22.0-30.0); Prothrombin Time 10.2 sec (9.0-12.0)
[2020-11-03] MEDS ORDERED: LABETALOL 5 MG/ML VIAL MDV IVP STA (00:37)
[2020-11-03] MEDS ORDERED: MORPHINE SULFATE 4 MG/ML SYRINGE IVP STA (00:37)
[2020-11-03] MEDS ORDERED: MORPHINE SULFATE 4 MG/ML SYRINGE IVP PRN (00:37)
[2020-11-03] MEDS ORDERED: ONDANSETRON 4 MG/2 ML VIAL IVP PRN (00:38)
[2020-11-03] MEDS ORDERED: ONDANSETRON 4 MG/2 ML VIAL IVP STA (00:38)
[2020-11-03] MEDS ORDERED: SODIUM CHLORIDE 0.9% 500 ML 500 ML IV STA (01:46)
[2020-11-03] MEDS ORDERED: NITROGLYCERIN SL TABS 0.4 MG TAB SUBLINGUAL PRN (01:46)
[2020-11-03] MEDS: SODIUM CHLORIDE 0.9% 1,000 ML IV SCH ×2 (02:11→11:44)
[2020-11-03] MEDS: METOPROLOL TARTRATE 25 MG TAB PO SCH ×3 (08:22→21:06)
[2020-11-03] MEDS: CLOPIDOGREL 75 MG TAB PO SCH (08:22)
[2020-11-03] MEDS: LOSARTAN 25 MG TAB PO SCH (08:22)
[2020-11-03] MEDS: ASPIRIN 81 MG PO SCH (08:22)
[2020-11-03] MEDS ORDERED: hydrALAZINE HCL 50 MG TAB PO SCH (09:00)
[2020-11-03 09:15] LABS: Calcium 8.6 mg/dL (8.4-10.2); Potassium 4.3 mmol/L (3.5-5.1)
--- NOTE | 2020-11-03 10:09 | P.CRDCN ---
History of Present Illness History of present illness: HISTORY OF PRESENTING ILLNESS This is a pleasant 89-year-old male past medical history significant for coronary artery disease status post PCI of the proximal and mid RCA August 05, ischemic cardiomyopathy, chronic systolic heart failure, COPD, hypertension, chronic kidney disease, peripheral vascular disease status post right carotid endarterectomy, chronic nicotine dependence and myocardial infarction. He follows in the office with Dr. French. We have been asked to see in consultation for hypertension with recent stent placement. He presented to the hospital with symptoms of nausea, vomiting, dizziness and generalized weakness. He states yesterday he went to cardiac rehab and exercise without incident. After that he went to his daughter's house and was walking through her garden with her when he developed nausea and started vomiting. He started feeling dizz y and lightheaded and was feeling chilled. He got up to get heavier shirt when he felt dizzy and fell into the wall. He denies loss of consciousness. He had no symptoms of chest pain, shortness of breath or palpitations. The symptoms he states are similar to how he felt when he came in with an OR in the past. He does not typically have classic symptoms of chest pain or shortness of breath. Review of office records indicate that he has been intolerant of many of his cardiac medications and therefore hydralazine, Lasix and Imdur have recently been discontinued. His symptoms have completely resolved since admission to the hospital. DIAGNOSTICS EKG reveals sinus mechanism heart rate of 76 with incomplete left bundle branch block, T-wave inversions in the inferior leads and mild ST depression noted laterally. These are consistent with previous EKGs and actually appear improved on this admission.. Telemetry tracings indicate sinus mechanism. Laboratory reviewed, WBC 8.1, hemoglobin 12.4, platelets 293, sodium 140, potassium 4.3, creatinine 1.6, troponin 0.060, 0.063, 0.066, magnesium 2.0. Current cardiac medications include losartan 25 mg daily, metoprolol 12.5 mg twice a day, aspirin 81 mg daily, Plavix 75 mg daily and atorvastatin 40 mg daily. Most recent echocardiogram obtained in the office September 2020 revealed impaired LV systolic function with ejection fraction 35-40%, grade 2 diastolic dysfunction, mild TR, mild MR and moderate pulmonary hypertension with an RVSP of 51 mmHg. REVIEW OF SYSTEMS At the time of my exam: CONSTITUTIONAL: Denies fever or chills. CARDIOVASCULAR: Denies chest pain, shortness of breath, orthopnea, PND or palpitations. RESPIRATORY: Denies cough. GASTROINTESTINAL: Denies abdominal pain, diarrhea, constipation, nausea or vomiting. MUSCULOSKELETAL: Denies myalgias. NEUROLOGIC: Denies numbness, tingling, headacbe or weakness. ENDOCRINE: Denies fatigue, weight change, polydipsia or polyurina. GENITOURINARY: Denies burning, hematuria or urgency with micturation. HEMATOLOGIC: Denies history of anemia or bleeding. PHYSICAL EXAMINATION Blood pressure 141/67 heart rate 84 afebrile and maintaining oxygen saturation on room air. CONSTITUTIONAL: No apparent distress. HEENT: Head is normocephalic. Pupils are equal, round. Sclerae anicteric. Mucous membranes of the mouth are moist. No JVD. No carotid bruit. CHEST EXAMINATION: Lungs are clear to auscultation. No chest wall tenderness is noted on palpation or with deep breathing. HEART EXAMINATION: Regular rate and rhythm. S1, S2 heard. Systolic ejection murmur at the base, no gallops or rub. ABDOMEN: Soft, nontender. Positive bowel sounds. EXTREMITIES: 2+ peripheral pulses, no lower extremity edema and no calf tenderness. NEUROLOGIC EXAMINATION: Patient is awake, alert and oriented x3. ASSESSMENT Symptoms of nausea, vomiting and dizziness. Possibly related to angina. Troponin leak, flat with no typical rise and fall pattern. Likely related to renal function. Chronic kidney disease Coronary artery disease status post recent PCI of the proximal and mid RCA in the setting of an acute OR Ischemic cardiomyopathy Chronic systolic heart failure, clinically euvolemic Hypertension Dyslipidemia Peripheral vascular disease Chronic nicotine dependence PLAN Troponin leak not indicative of myocardial injury. Repeat limited echo to assess LV function. Resume losartan, lopressor, aspirin, statin and plavix. Increase activity and ambulation in the halls. Discussed with the patient the possibility of repeat heart catheterization given his similarity in symptoms. He would prefer a more conservative medical approach. We recommend ongoing observation for another 24 hours and can make further decisions tomorrow if he has reoccurrence of symptoms. Thank you kindly for this consultation. Nurse Practitioner note has been reviewed, I agree with a documented findings a nd plan of care. Patient was seen and examined. Past Medical History Past Medical History: COPD, CVA/TIA, GERD/Reflux, Hearing Disorder / Deafness, Hypertension, Prostate Disorder, Renal Disease Additional Past Medical History / Comment(s): TIAs, BPH, CKD, neuropathy bilateral hands Last Myocardial Infarction Date:: 07/20/2020 History of Any Multi-Drug Resistant Organisms: None Reported Past Surgical History: Heart Catheterization, Heart Catheterization With Stent, Hernia Repair Additional Past Surgical History / Comment(s): R caratid endartectomy, bilateral cataracts removed/lens implants, cardiac cath-normal, R inguinal hernia repair, colonoscopy. Past Anesthesia/Blood Transfusion Reactions: No Reported Reaction Date of Last Stent Placement:: 07/20/20 Past Psychological History: No Psychological Hx Reported Additional Psychological History / Comment(s): Pt has a adult son who lives with him who is an alcoholic. He uses no assistive device. He drives. 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 Smoking Status: Current every day smoker Past Alcohol Use History: None Reported Additional Past Alcohol Use History / Comment(s): Pt states he started smoking in 1950 and was a ppd smoker until recently, since May 2020 he has cut down ( 1 pack has lasted since may) Past Drug Use History: None Reported - Past Family History Mother Family Medical History: Diabetes Mellitus Additional Family Medical History / Comment(s): Mother lived to be 86yrs old. Father Family Medical History: Respiratory Disorder Additional Family Medical History / Comment(s): Father worked in the [employer] and had black lung. He at the age of 78yrs. Medications and Allergies Home Medications Medication Instructions Recorded Confirmed Type Tamsulosin [Flomax] 0.4 mg PO HS 03/18/16 11/03/20 History Tiotropium 2.5 Mcg/Puff [Spiriva 2 puff INHALATION RT-DAILY 07/12/20 11/03/20 History Respimat 2.5 Mcg] Albuterol Inhaler [Ventolin Hfa 1 puff INHALATION RT-QID PRN #1 07/15/20 11/03/20 Rx Inhaler] bottle Isosorbide Mononitrate ER [Imdur] 30 mg PO DAILY #30 tab.er.24h 07/15/20 11/03/20 Rx Metoprolol Tartrate [Lopressor] 25 mg PO BID #60 tab 07/15/20 11/03/20 Rx hydrALAZINE HCL [Apresoline] 50 mg PO BID #60 tab 07/15/20 11/03/20 Rx Clopidogrel [Plavix] 75 mg PO DAILY 14 Days #14 tab 07/24/20 11/03/20 Rx Nitroglycerin Sl Tabs [Nitrostat] 0.4 mg SL Q5M PRN 08/01/20 11/03/20 History Losartan [Cozaar] 12.5 mg PO DAILY #15 tab 08/03/20 11/03/20 Rx Atorvastatin [Lipitor] 40 mg PO HS 11/03/20 11/03/20 History Furosemide [Lasix] 20 mg PO DAILY@1600 11/03/20 11/03/20 History Furosemide [Lasix] 40 mg PO DAILY 11/03/20 11/03/20 History Lidocaine 5% Patch [Lidoderm] 1 patch TOPICAL DAILY PRN 11/03/20 11/03/20 History Allergies Allergy/AdvReac Type Severity Reaction Status Date / Time sulfur dioxide Allergy Unknown Verified 11/03/20 09:32 Physical Exam Vitals: Vital Signs Temp Pulse Pulse Resp BP BP Pulse Ox 11/03/20 04:00 84 16 156/88 95 11/03/20 03:17 98.0 F 87 20 166/78 97 11/03/20 02:07 98.2 F 80 18 149/92 97 11/03/20 01:25 90 169/86 96 11/03/20 01:20 89 168/76 96 11/03/20 01:15 172/78 11/03/20 01:10 174/83 11/03/20 01:05 180/74 11/03/20 01:00 167/81 11/03/20 00:51 87 18 181/84 97 11/03/20 00:47 83 18 200/103 97 11/03/20 00:32 84 183/120 11/02/20 23:52 79 18 195/97 97 11/02/20 23:32 73 11/02/20 22:46 97.6 F 87 20 208/111 96 Intake and Output 11/02/20 11/03/20 11/03/20 22:59 06:59 14:59 Other: # Voids 1 # Bowel Movements 1 Weight 71.668 kg 68.6 kg Results 11/02/20 22:52 11/03/20 08:05 Cardiac Enzymes 11/02/20 11/02/20 11/03/20 Range/Units 22:52 22:52 03:38 AST 20 (17-59) U/L Troponin I 0.060 H* 0.063 H* (0.000-0.034) ng/mL Coagulation 11/02/20 Range/Units 22:52 PT 10.2 (9.0-12.0) sec APTT 24.4 (22.0-30.0) sec CBC 11/02/20 Range/Units 22:52 WBC 8.1 (3.8-10.6) k/uL RBC 4.20 L (4.30-5.90) m/uL Hgb 12.4 L (13.0-17.5) gm/dL Hct 37.0 L (39.0-53.0) % Plt Count 293 (150-450) k/uL Comprehensive Metabolic Panel 11/02/20 Range/Units 22:52 Sodium 140 (137-145) mmol/L Potassium 4.4 (3.5-5.1) mmol/L Chloride 104 (98-107) mmol/L Carbon Dioxide 26 (22-30) mmol/L BUN 27 H (9-20) mg/dL Creatinine 1.72 H (0.66-1.25) mg/dL Glucose 170 H (74-99) mg/dL Calcium 9.5 (8.4-10.2) mg/dL AST 20 (17-59) U/L ALT 12 (4-49) U/L Alkaline Phosphatase 81 (38-126) U/L Total Protein 7.0 (6.3-8.2) g/dL Albumin 4.1 (3.5-5.0) g/dL Current Medications Generic Name Dose Route Start Last Admin Trade Name Freq PRN Reason Stop Dose Admin Aspirin 81 mg 11/03/20 09:00 Aspirin 81 Mg PO DAILY [facility] Atorvastatin Calcium 40 mg 11/03/20 21:00 Atorvastatin 40 Mg Tab PO HS [facility] Clopidogrel Bisulfate 75 mg 11/03/20 09:00 Clopidogrel 75 Mg Tab PO DAILY [facility] Hydralazine HCl 50 mg 11/03/20 09:00 Hydralazine Hcl 50 Mg Tab PO BID [facility] Sodium Chloride 1,000 mls @ 100 mls/hr 11/03/20 02:00 11/03/20 02:11 Saline 0.9% IV 100 mls/hr .Q10H [facility] Administration Losartan Potassium 12.5 mg 11/03/20 09:00 Losartan 25 Mg Tab PO DAILY [facility] Metoprolol Tartrate 25 mg 11/03/20 09:00 Metoprolol Tartrate 25 Mg Tab PO BID [facility] Morphine Sulfate 4 mg 11/03/20 00:37 Morphine Sulfate 4 Mg/Ml Syringe IVP Q4HR PRN Pain Nitroglycerin 0.4 mg 11/03/20 01:46 Nitroglycerin Sl Tabs 0.4 Mg Tab SUBLINGUAL Q5M PRN Chest Pain Ondansetron HCl 4 mg 11/03/20 00:38 Ondansetron 4 Mg/2 Ml Vial IVP Q6HR PRN Nausea And Vomiting Intake and Output 11/02/20 11/03/20 11/03/20 22:59 06:59 14:59 Other: # Voids 1 # Bowel Movements 1 Weight 71.668 kg 68.6 kg 11/02/20 22:52 11/02/20 22:52
--- NOTE | 2020-11-03 10:33 | XR ---
EXAMINATION TYPE: XR chest 2V DATE OF EXAM: 11/03/2020 COMPARISON: 08/01/2020 TECHNIQUE: PA and lateral views submitted. HISTORY: Shortness of breath FINDINGS: Hyperinflation suggestive of COPD there is biapical pleural thickening. Increased density along the m edial margin of the right upper lobe. Atherosclerotic change aorta. Diffuse osteopenia and arthropath y of the shoulders. Degenerative change of the spine. IMPRESSION: 1. COPD with patchy increased density along the medial margin of the right upper lobe. Consider CT sc an.
[2020-11-03 10:34] LABS: Appearance,Urine Clear (Clear); Bilirubin,Urine Negative (Negative); Blood,Urine Negative (Negative); Color,Urine Yellow; Glucose,Urine (UA) Negative (Negative); Ketones,Urine Negative (Negative); Leukocyte Esterase,Urine Negative (Negative); Mucus,Urine Rare /hpf; Nitrite,Urine Negative (Negative); PH, Urine 5.5 (5.0-8.0); Protein,Urine 2+ (Negative); RBC,Urine <1 /hpf (0-5); Specific Gravity,Urine 1.012 (1.001-1.035); Urobilinogen,Urine <2.0 mg/dL (<2.0); WBC,Urine 5 /hpf (0-5)
--- NOTE | 2020-11-03 11:01 | ECHOF ---
Referral Reason:s/p pci, cardiomyopathy. lv function MEASUREMENTS -------- HEIGHT: 180.3 cm WEIGHT: 68.5 kg BP: IVSd: 1.4 cm (0.6 - 1.1) LVIDd: 5.3 cm (3.9 - 5.3) LVPWd: 1.8 cm (0.6 - 1.1) IVSs: 1.7 cm LVIDs: 3.6 cm LVPWs: 2.2 cm FINDINGS -------- Sinus rhythm. This was a technically difficult study with suboptimal views. Limited Study The left ventricular size is normal. There is moderate concentric left ventricular hypertrophy. O verall left ventricular systolic function is moderate-severely impaired with, an EF between 30 - 35 % . Basal lateral LV wall motion is hypokinetic. Basal posterior LV wall motion is hypokinetic. Basal inferior LV wall motion is hypokinetic. Mid lateral LV wall motion is hypokinetic. Mid i nferior LV wall motion is hypokinetic. Basal inferolateral hypokinesis. Lumason used There is no pericardial effusion. CONCLUSIONS -------- 1. There is moderate concentric left ventricular hypertrophy. 2. Overall left ventricular systolic function is moderate-severely impaired with, an EF between 30 - 35 %. 3. Basal lateral LV wall motion is hypokinetic. 4. Basal posterior LV wall motion is hypokinetic. 5. Basal inferior LV wall motion is hypokinetic. 6. Mid lateral LV wall motion is hypokinetic. 7. Mid inferior LV wall motion is hypokinetic. 8. Basal inferolateral hypokinesis. 9. There is no pericardial effusion. [employer] SUPERVISOR: Elyse Underwood RDCS
[2020-11-03] MEDS: ATORVASTATIN 40 MG TAB PO SCH (20:35)
[2020-11-03] MEDS: TAMSULOSIN 0.4 MG CAP.ER.24H PO SCH (21:06)
--- NOTE | 2020-11-03 21:10 | P.HPIM ---
History of Present Illness H&P Date: 11/03/20 Chief Complaint: Generalized weakness and nausea. Patient is a 89-year-old male with a known history of hypertension, history of CVA/TIA, COPD, GERD, coronary arteries with a history of stent placement and chronic CHF with ejection fraction 35 to 40% and moderate pulmonary h ypertension, history of right carotid endarterectomy, currently everyday smoker, neuropathy of bilateral hands nondiabetic presents to ER due to complaints of sickness to stomach and fell backward and hit his head. Patient's daughter took his blood pressure and found to be elevated. Patient has been having generalized weakness. Patient did have nausea. No abdominal pain. No complaints of shortness of. Patient states that he went to cardiac rehab without any incident. CT head and cervical spine showed cerebral atrophy. No acute intracranial abnormality. Chronic small vessel ischemia. No change. Moderate spondylosis at C6-C7 no fractures seen. EKG showed normal sinus rhythm Chest x-ray showed COPD with patchy increased density along the medial margin of the right upper lobe. Consider CT scan. Laboratory showed WBC 8.1 hemoglobin 12.4 and platelets 293 Sodium 140 potassium 4.4 chloride 104, BUN 27 creatinine 1.72 Troponin 0 0.060, 0.063 and 0.066 Coronavirus PCR not detected. On admission blood pressure was 208/111 pulse 87 respiration 20 pulse ox 96% on room air. Review of Systems Constitutional: Patient denies any fever or chills . generalized weakness , no weight loss. Abdomen: Patient does have nausea and episode of vomiting. Abdominal discomfort. No diarrhea.. Cardiovascular: Patient denies any chest pain or short of breath no pal pitations. Respiratory: patient denied any cough or sputum production. No shortness of breath Neurologic: Patient denied any numbness or tingling headache. Musculoskeletal: Patient denies any complaints of joint swelling or deformity. Skin: Negative Psychiatric: Negative Endocrine: No heat or cold intolerance. No recent weight gain. Genitourinary: No dysuria or hematuria. All other 14 point ROS negative except the above Past Medical History Past Medical History: COPD, CVA/TIA, GERD/Reflux, Hearing Disorder / Deafness, Hypertension, Prostate Disorder, Renal Disease Additional Past Medical History / Comment(s): TIAs, BPH, CKD, neuropathy bilateral hands Last Myocardial Infarction Date:: 07/20/2020 History of Any Multi-Drug Resistant Organisms: None Reported Past Surgical History: Heart Catheterization, Heart Catheterization With Stent, Hernia Repair Additional Past Surgical History / Comment(s): R caratid endartectomy, bilateral cataracts removed/lens implants, cardiac cath-normal, R inguinal hernia repair, colonoscopy. Past Anesthesia/Blood Transfusion Reactions: No Reported Reaction Date of Last Stent Placement:: 07/20/20 Past Psychological History: No Psychological Hx Reported Additional Psychological History / Comment(s): Pt has a adult son who lives with him who is an alcoholic. He uses no assistive device. He drives. 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 Smoking Status: Current every day smoker Past Alcohol Use History: None Reported Additional Past Alcohol Use History / Comment(s): Pt states he started smoking in 1950 and was a ppd smoker until recently, since May 2020 he has cut down ( 1 pack has lasted since may) Past Drug Use History: None Reported - Past Family History Mother Family Medical History: Diabetes Mellitus Additional Family Medical History / Comment(s): Mother lived to be 86yrs old. Father Family Medical History: Respiratory Disorder Additional Family Medical History / Comment(s): Father worked in the [employer] and had black lung. He at the age of 78yrs. Medications and Allergies Home Medications Medication Instructions Recorded Confirmed Type Tamsulosin [Flomax] 0.4 mg PO HS 03/18/16 11/03/20 History Tiotropium 2.5 Mcg/Puff [Spiriva 2 puff INHALATION RT-DAILY 07/12/20 11/03/20 History Respimat 2.5 Mcg] Albuterol Inhaler [Ventolin Hfa 1 puff INHALATION RT-QID PRN #1 07/15/20 11/03/20 Rx Inhaler] bottle Metoprolol Tartrate [Lopressor] 25 mg PO BID #60 tab 07/15/20 11/03/20 Rx Clopidogrel [Plavix] 75 mg PO DAILY 14 Days #14 tab 07/24/20 11/03/20 Rx Nitroglycerin Sl Tabs [Nitrostat] 0.4 mg SL Q5M PRN 08/01/20 11/03/20 History Losartan [Cozaar] 12.5 mg PO DAILY #15 tab 08/03/20 11/03/20 Rx Atorvastatin [Lipitor] 40 mg PO HS 11/03/20 11/03/20 History Furosemide [Lasix] 20 mg PO DAILY@1600 11/03/20 11/03/20 History Furosemide [Lasix] 40 mg PO DAILY 11/03/20 11/03/20 History Lidocaine 5% Patch [Lidoderm] 1 patch TOPICAL DAILY PRN 11/03/20 11/03/20 History Allergies Allergy/AdvReac Type Severity Reaction Status Date / Time sulfur dioxide Allergy Unknown Verified 11/03/20 09:32 Physical Exam Vitals: Vital Signs Temp Pulse Pulse Resp BP BP Pulse Ox 11/03/20 08:18 98.8 F 84 16 141/67 97 11/03/20 04:00 84 16 156/88 95 11/03/20 03:17 98.0 F 87 20 166/78 97 11/03/20 02:07 98.2 F 80 18 149/92 97 11/03/20 01:25 90 169/86 96 11/03/20 01:20 89 168/76 96 11/03/20 01:15 172/78 11/03/20 01:10 174/83 11/03/20 01:05 180/74 11/03/20 01:00 167/81 11/03/20 00:51 87 18 181/84 97 11/03/20 00:47 83 18 200/103 97 11/03/20 00:32 84 183/120 11/02/20 23:52 79 18 195/97 97 11/02/20 23:32 73 11/02/20 22:46 97.6 F 87 20 208/111 96 Intake and Output 11/02/20 11/03/20 11/03/20 22:59 06:59 14:59 Intake Total 180 Balance 180 Intake: Oral 180 Other: # Voids 1 # Bowel Movements 1 Weight 71.668 kg 68.6 kg PHYSICAL EXAMINATION: Patient is lying in the bed comfortably, no acute distress, awake alert and oriented.. HEENT: Normocephalic. Neck is supple. Pupils reactive. Nostrils clear. Oral cavity is moist. Neck reveals no JVD, carotid bruits, or thyromegaly. CHEST EXAMINATION: Trachea is central. Symmetrical expansion. Lung ifsher clear to auscultation and percussion. CARDIAC: Normal S1, S2 with no gallops. No murmurs ABDOMEN: Soft. Bowel sounds normal. No organomegaly. No abdominal bruits. Extremities: reveal no edema. No clubbing or cyanosis Neurologically awake, alert, oriented x3 with well-coordinated movements. No focal deficits noted Skin: No rash or skin lesions. Psychiatric: Coperative. Nonsuicidal Musculoskeletal: No joint swelling or deformity. Normal range of motion. Results CBC & Chem 7: 11/02/20 22:52 11/03/20 08:05 Labs: Abnormal Lab Results - Last 24 Hours (Table) 11/02/20 11/02/20 11/02/20 Range/Units 22:52 22:52 22:52 RBC 4.20 L (4.30-5.90) m/uL Hgb 12.4 L (13.0-17.5) gm/dL Hct 37.0 L (39.0-53.0) % Chloride (98-107) mmol/L BUN 27 H (9-20) mg/dL Creatinine 1.72 H (0.66-1.25) mg/dL Glucose 170 H (74-99) mg/dL Creatine Kinase 49 L (55-170) U/L Troponin I 0.060 H* (0.000-0.034) ng/mL Urine Protein (Negative) Urine Mucus (None) /hpf 11/03/20 11/03/20 11/03/20 Range/Units 03:38 07:04 08:05 RBC (4.30-5.90) m/uL Hgb (13.0-17.5) gm/dL Hct (39.0-53.0) % Chloride 109 H (98-107) mmol/L BUN 24 H (9-20) mg/dL Creatinine 1.60 H (0.66-1.25) mg/dL Glucose 131 H (74-99) mg/dL Creatine Kinase (55-170) U/L Troponin I 0.063 H* 0.066 H* (0.000-0.034) ng/mL Urine Protein (Negative) Urine Mucus (None) /hpf 11/03/20 Range/Units 09:36 RBC (4.30-5.90) m/uL Hgb (13.0-17.5) gm/dL Hct (39.0-53.0) % Chloride (98-107) mmol/L BUN (9-20) mg/dL Creatinine (0.66-1.25) mg/dL Glucose (74-99) mg/dL Creatine Kinase (55-170) U/L Troponin I (0.000-0.034) ng/mL Urine Protein 2+ H (Negative) Urine Mucus Rare H (None) /hpf Thrombosis Risk Factor Assmnt - DVT/VTE Prophylaxis DVT/VTE Prophylaxis: Pharmacologic Prophylaxis ordered - Choose All That Apply Each Factor Represents 1 point: Abnormal pulmonary function (COPD) Each Risk Factor Represents 3 Points: Age 75 years or older Other congenital or acquired thrombophilia - If yes, enter type in comment: No Thrombosis Risk Factor Assessment Total Risk Factor Score: 4 Thrombosis Risk Factor Assessment Level: Moderate Risk Assessment and Plan Assessment: Symptoms of epigastric abdominal discomfort and nausea and generalized weakness. Possible atypical chest pain/angina Hypertensive urgency on admission Mild elevated troponin level. Unlikely acute IA. Mild acute on chronic kidney disease stage III Coronary artery disease with recent history of PCI/stent placement Ischemic cardiomyopathy ejection fraction 35 to 40%. Chronic CHF with systolic function Moderate pulmonary hypertension Hypertension Hyperlipidemia Peripheral vascular disease with history of right carotid endarterectomy. Ongoing nicotine addiction BPH History of CVA/TIA DVT prophylaxis with heparin subcu GI proph. benjie Hawk Plan: Patient will be continued telemetry monitoring. Continue with aspirin statins Plavix and metoprolol. Titrate blood pressure medications. Follow-up renal function and cardiology is on board. Symptomatic management for nausea. Continue with home medications and follow-up closely. Possible right heart catheterization as per cardiology if the patient agrees to proceed with. Time with Patient: Greater than 30
[2020-11-03] MEDS: HEPARIN SODIUM,PORCINE/PF 5,000 UNIT/0.5 ML SYRINGE SQ SCH (23:27)
[2020-11-03] MEDS: FAMOTIDINE 20 MG TAB PO SCH (23:27)
[2020-11-04] MEDS: METOPROLOL TARTRATE 25 MG TAB PO SCH ×2 (07:59→20:14)
[2020-11-04] MEDS: HEPARIN SODIUM,PORCINE/PF 5,000 UNIT/0.5 ML SYRINGE SQ SCH ×3 (07:59→23:05)
[2020-11-04] MEDS: ASPIRIN 81 MG PO SCH (07:59)
[2020-11-04] MEDS: CLOPIDOGREL 75 MG TAB PO SCH (08:00)
[2020-11-04] MEDS: FAMOTIDINE 20 MG TAB PO SCH ×2 (08:00→20:14)
[2020-11-04] MEDS: LOSARTAN 25 MG TAB PO SCH (08:00)
[2020-11-04 09:00] LABS: Calcium 8.6 mg/dL (8.4-10.2); Potassium 4.5 mmol/L (3.5-5.1)
[2020-11-04] MEDS ORDERED: ASPIRIN 325 MG TAB PO SCH (09:00)
--- NOTE | 2020-11-04 13:15 | P.PN ---
Subjective Patient is a 89-year-old male with a known history of hypertension, history of CVA/TIA, COPD, GERD, coronary arteries with a history of stent placement and chronic CHF with ejection fraction 35 to 40% and moderate pulmonary hypertension, history of right carotid endarterectomy, currently everyday smoker, neuropathy of bilateral hands nondiabetic presents to ER due to complaints of sickness to stomach and fell backward and hit his head. Patient's daughter took his blood pressure and found to be elevated. Patient has been having generalized weakness. Patient did have nausea. No abdominal pain. No complaints of shortness of. Patient states that he went to cardiac rehab without any incident. CT head and cervical spine showed cerebral atrophy. No acute intracranial abnormality. Chronic small vessel ischemia. No change. Moderate spondylosis at C6-C7 no fractures seen. EKG showed normal sinus rhythm Chest x-ray showed COPD with patchy increased density along the medial margin of the right upper lobe. Consider CT scan. Laboratory showed WBC 8.1 hemoglobin 12.4 and platelets 293 Sodium 140 potassium 4.4 chloride 104, BUN 27 creatinine 1.72 Troponin 0 0.060, 0.063 and 0.066 Coronavirus PCR not detected. On admission blood pressure was 208/111 pulse 87 respiration 20 pulse ox 96% on room air. Objective - Vital Signs Vital signs: Vital Signs Temp 97.8 F 11/04/20 07:52 Pulse 73 11/04/20 07:52 Resp 16 11/04/20 07:52 BP 155/60 11/04/20 09:16 Pulse Ox 96 11/04/20 07:52 Intake & Output 11/03/20 11/04/20 11/04/20 18:59 06:59 18:59 Intake Total 860 480 Balance 860 480 Weight 68.4 kg Intake: Intake, IV Titration 500 Amount Sodium Chloride 0.9% 1, 500 000 ml @ 100 mls/hr IV . Q10H MOLLY Rx#:[id number] Oral 360 480 Other: # Voids 1 - Exam GENERAL: The patient is alert and oriented x3, not in any acute distress. Well developed, well nourished. HEENT: Pupils are round and equally reacting to light. EOMI. No scleral icterus. No conjunctival pallor. Normocephalic, atraumatic. No pharyngeal erythema. No thyromegaly. CARDIOVASCULAR: S1 and S2 present. No murmurs, rubs, or gallops. PULMONARY: Chest is clear to auscultation, no wheezing or crackles. ABDOMEN: Soft, nontender, nondistended, normoactive bowel sounds. No palpable organomegaly. MUSCULOSKELETAL: No joint swelling or deformity. EXTREMITIES: No cyanosis, clubbing, or pedal edema. NEUROLOGICAL: Gross neurological examination did not reveal any focal deficits. SKIN: No rashes. no petechiae. - Labs CBC & Chem 7: 11/02/20 22:52 11/04/20 07:30 Labs: Abnormal Lab Results - Last 24 Hours (Table) 11/04/20 Range/Units 07:30 Chloride 110 H (98-107) mmol/L BUN 24 H (9-20) mg/dL Creatinine 1.48 H (0.66-1.25) mg/dL Glucose 131 H (74-99) mg/dL Assessment and Plan Assessment: epigastric abdominal discomfort and nausea and generalized weakness. COMPLETE resolved. Rule out cardiac causes Hypertensive urgency on admission, improving Mild elevated troponin level. Unlikely acute PR. 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 Improved Fall on back of his head at home Coronary artery disease with recent history of PCI/stent placement Ischemic cardiomyopathy ejection fraction 35 to 40%. Chronic CHF with systolic function Moderate pulmonary hypertension Hypertension Hyperlipidemia Peripheral vascular disease with history of right carotid endarterectomy. Ongoing nicotine addiction BPH History of CVA/TIA Plan: This is a pleasant 89 years old male who presents with abdominal pain resolved now and falling back toward on his head. Patient has elevated troponin on admission and systems manager recommended right- sided heart cath however patient declined We will keep monitoring. Check orthostatic vitals and hemoglobin A1c. Check creatinine/protein ratio for 2+ protein in urine Labs and medication were reviewed.. Continue same treatment. Continue with symptomatic treatment. Resume home medication. Monitor lytes and vitals. DVT and GI prophylaxis. Further recommendationsas per clinical course of the patient DVT prophylaxis with heparin subcu GI proph. benjie Hawk PT/OT: Pending Prognosis is guarded
[2020-11-04 13:26] LABS: Chol/HDL Ratio 6.54; LDL Cholesterol,Calculated 99.4 mg/dL (0.0-131.0); VLDL Calculation 33.6 mg/dL (5.00-40.00)
[2020-11-04 14:06] LABS: Creatinine,Urine Random 88.9 mg/dL; Protein/Creatinine Ratio,Urine 1.271
[2020-11-04] MEDS ORDERED: hydrALAZINE HCL 20 MG/ML 1 ML VIAL IVP PRN (17:34)
[2020-11-04] MEDS: TAMSULOSIN 0.4 MG CAP.ER.24H PO SCH (20:14)
[2020-11-04] MEDS: ATORVASTATIN 40 MG TAB PO SCH (20:14)
[2020-11-05 08:02] VITALS: RESP 16; TEMP 97.8
[2020-11-05] MEDS: METOPROLOL TARTRATE 25 MG TAB PO SCH (08:07)
[2020-11-05] MEDS: LOSARTAN 25 MG TAB PO SCH (08:07)
[2020-11-05] MEDS: ASPIRIN 81 MG PO SCH (08:07)
[2020-11-05] MEDS: FAMOTIDINE 20 MG TAB PO SCH (08:07)
[2020-11-05] MEDS: CLOPIDOGREL 75 MG TAB PO SCH (08:07)
[2020-11-05] MEDS: HEPARIN SODIUM,PORCINE/PF 5,000 UNIT/0.5 ML SYRINGE SQ SCH (08:07)
[2020-11-05] MEDS ORDERED: ISOSORBIDE MONONITRATE ER 30 MG TAB.ER.24H PO SCH (10:30)
--- NOTE | 2020-11-05 13:17 | P.PN ---
Subjective Progress Note Date: 11/05/20 HISTORY OF PRESENT ILLNESS: This is a pleasant 89-year-old male past medical history significant for coronary artery disease status post PCI of the proximal and mid RCA July 2020, ischemic cardiomyopathy, chronic systolic heart failure, COPD, hypertension, chronic kidney disease, peripheral vascular disease status post right carotid endarterectomy, chronic nicotine dependence and myocardial infarction. He follows in the office with Dr. French. We have been asked to see in consultation for hypertension with recent stent placement. He presented to the hospital with symptoms of nausea, vomiting, dizziness and generalized weakness. He states yesterday he went to cardiac rehab and exercise without incident. After that he went to his daughter's house and was walking through her garden with her when he developed nausea and started vomiting. He started feeling dizzy and lightheaded and was feeling chilled. He got up to get heavier shirt when he felt dizzy and fell into the wall. He denies loss of consciousness. He had no symptoms of chest pain, shortness of breath or palpitations. The symptoms he states are similar to how he felt when he came in with an PR in the past. He does not typically have classic symptoms of chest pain or shortness of breath. Review of office records indicate that he has been intolerant of many of his cardiac medications and therefore hydralazine, Lasix and Imdur have recently been discontinued. His symptoms have completely resolved since admission to the hospital. DIAGNOSTICS EKG reveals sinus mechanism heart rate of 76 with incomplete left bundle branch block, T-wave inversions in the inferior leads and mild ST depression noted laterally. These are consistent with previous EKGs and actually appear improved on this admission.. Telemetry tracings indicate sinus mechanism. Laboratory reviewed, WBC 8.1, hemoglobin 12.4, platelets 293, sodium 140, potassium 4.3, creatinine 1.6, troponin 0.060, 0.063, 0.066, magnesium 2.0. Current cardiac medications include losartan 25 mg daily, metoprolol 12.5 mg twice a day, aspirin 81 mg daily, Plavix 75 mg daily and atorvastatin 40 mg daily. Most recent echocardiogram obtained in the office September 2020 revealed impaired LV systolic function with ejection fraction 35-40%, grade 2 diastolic dysfunction, mild TR, mild MR and moderate pulmonary hypertension with an RVSP of 51 mmHg. 11/05/2020 Patient examined this morning at the bedside. Patient denies chest pain or pressure. He denies short of breath. Echocardiogram completed revealed ejection fraction 30-35%. PHYSICAL EXAM: VITAL SIGNS: Reviewed. GENERAL: Well-developed in no acute distress. NECK: Supple. No JVD or thyromegaly LUNGS: Respirations even and unlabored. Lungs essentially clear to auscultation bilaterally. HEART: Regular rate and rhythm. S1 and S2 heard. Systolic murmur noted EXTREMITIES: Normal range of motion. No clubbing or cyanosis. Peripheral pulse s intact. No lower extremity edema ASSESSMENT: Nausea, vomiting, and dizziness Abnormal troponins, likely secondary to renal function Chronic kidney disease Coronary artery disease with recent PCI of the proximal and mid RCA in the setting of acute PR Ischemic myopathy Chronic systolic heart failure, currently euvolemic Hypertension Hyperlipidemia Peripheral vascular disease Chronic nicotine dependence PLAN: Patient would like to continue with medical management and is not interested in having a cardiac catheterization performed at this time Continue current cardiac medications Add Imdur 30 mg daily Patient may be discharged home today from a cardiac standpoint He is to follow up outpatient with Dr. French Nurse practitioner note has been reviewed by physician. Signing provider agrees with the documented findings, assessment, and plan of care. Objective - Vital Signs Vital signs: Vital Signs Temp 97.8 F 11/05/20 08:01 Pulse 70 11/05/20 11:33 Resp 16 11/05/20 11:33 BP 177/86 11/05/20 11:33 Pulse Ox 97 11/05/20 11:33 Intake & Output 11/04/20 11/05/20 11/05/20 18:59 06:59 18:59 Intake Total 720 440 Balance 720 440 Weight 68.8 kg Intake: Oral 720 440 Other: Voiding Method Toilet Urinal # Voids 1 1 - Labs CBC & Chem 7: 11/02/20 22:52 11/04/20 07:30 Labs: Abnormal Lab Results - Last 24 Hours (Table) 11/04/20 Range/Units 07:30 Triglycerides 168.0 H (0.0-149.0) mg/dL HDL Cholesterol 24.0 L (40.0-60.0) mg/dL
[2020-11-05 13:53] VITALS: BP 134/75; PULSE 77
--- NOTE | 2020-11-05 21:39 | P.DS ---
Providers Date of admission: 11/03/20 01:48 Attending physician: Jerica Valadez Consults: 11/03/20 01:46 Consult Physician Urgent Consulting Provider: Maverick French Consult Reason/Comments: htn,recentStent Do you want consulting provider notified?: Yes Primary care physician: [facility] Hospital Course: Diagnoses: epigastric abdominal discomfort and nausea and generalized weakness. COMPLETE resolved. Hypertensive urgency on admission, improving Mild elevated troponin level. Unlikely acute LA. Mathematical Engineer recommended cardiac cath but patient declined. Mathematical Engineer cleared the patient for discharge on medical treatment Mild acute on chronic kidney disease stage III. Improved Fall on back of his head at home Coronary artery disease with recent history of PCI/stent placement Ischemic cardiomyopathy ejection fraction 35 to 40%. Chronic CHF with systolic function Moderate pulmonary hypertension Hypertension Hyperlipidemia Peripheral vascular disease with history of right carotid endarterectomy. Ongoing nicotine addiction BPH History of CVA/TIA Hospital course: Patient is a 89-year-old male with a known history of hypertension, history of CVA/TIA, COPD, GERD, coronary arteries with a history of stent placement and chronic CHF with ejection fraction 35 to 40% and moderate pulmonary hypertension, history of right carotid endarterectomy, presents to ER due to complaints of sickness to stomach and fell backward and hit his head. Patient found to have mildly elevated troponin, windmill mechanic recommended cardiac cath but patient declined. Patient abdominal pain nausea vomiting are completely resolved for the last 2 days, patient tolerating diet well. He has constipation which is his baseline. No chest pain. No coughing. Denies dyspnea. Patient is on aspirin and Plavix from home which is continue with. Echocardiogram showed ejection fraction of 35-40%. As been asymptomatic yesterday and today windmill mechanic cleared the patient today. When I came to see the patient he was already dressed up and was so adamant to leave today. His daughter was on the way. Patient does not want to wait the hospital and he told me he said he will follow-up as an outpatient Problems and management plan were discussed with the patient and he verbalized understanding and acceptance Patient was found stable and can be discharged home in guarded prognosis however he needs follow-up as an outpatient. Patient was instructed to follow up with PCP at the [facility] within one week and patient agrees Patient also was instructed to follow up with windmill mechanic Dr. French in 1 week and he agrees to call and make appointment. Patient also referred to a apron trimmer Dr. Nuñez as an outpatient to call in 1- 2 weeks and patient agrees. Appointments could not be made for the patient because it is weakened My physical exam Gen: patient is a AAOx3, no distress CVS: S1-S2, RRR, no murmur Lungs: B/L CTA, no wheezing Abdomen: soft, no distention, no tenderness, positive bowel sounds Extremity: no leg edema or induration Time spent more than 35 minutes Patient Condition at Discharge: Good Plan - Discharge Summary Discharge Rx Participant: No New Discharge Prescriptions: New RX: Isosorbide Mononitrate ER [Imdur] 30 mg PO DAILY #30 tab.er.24h Continue RX: Tamsulosin [Flomax] 0.4 mg PO HS RX: Tiotropium 2.5 Mcg/Puff [Spiriva Respimat 2.5 Mcg] 2 puff INHALATION RT- DAILY RX: Metoprolol Tartrate [Lopressor] 25 mg PO BID #60 tab RX: Albuterol Inhaler [Ventolin Hfa Inhaler] 1 puff INHALATION RT-QID PRN #1 bottle PRN Reason: Shortness Of Breath Or Wheezing RX: Clopidogrel [Plavix] 75 mg PO DAILY 14 Days #14 tab RX: Nitroglycerin Sl Tabs [Nitrostat] 0.4 mg SL Q5M PRN PRN Reason: Chest Pain RX: Losartan [Cozaar] 12.5 mg PO DAILY #15 tab RX: Lidocaine 5% Patch [Lidoderm 5% Patch] 1 patch TOPICAL DAILY PRN PRN Reason: Pain RX: Atorvastatin [Lipitor] 40 mg PO HS RX: Furosemide [Lasix] 40 mg PO DAILY Discontinued RX: hydrALAZINE HCL [Apresoline] 50 mg PO BID #60 tab RX: Isosorbide Mononitrate ER [Imdur] 30 mg PO DAILY #30 tab.er.24h RX: Furosemide [Lasix] 20 mg PO DAILY@1600 Discharge Medication List RX: Tamsulosin [Flomax] 0.4 mg PO HS 03/18/16 [History] RX: Tiotropium 2.5 Mcg/Puff [Spiriva Respimat 2.5 Mcg] 2 puff INHALATION RT- DAILY 07/12/20 [History] RX: Albuterol Inhaler [Ventolin Hfa Inhaler] 1 puff INHALATION RT-QID PRN #1 bottle 07/15/20 [Rx] RX: Metoprolol Tartrate [Lopressor] 25 mg PO BID #60 tab 07/15/20 [Rx] RX: Clopidogrel [Plavix] 75 mg PO DAILY 14 Days #14 tab 07/24/20 [Rx] RX: Nitroglycerin Sl Tabs [Nitrostat] 0.4 mg SL Q5M PRN 08/01/20 [History] RX: Losartan [Cozaar] 12.5 mg PO DAILY #15 tab 08/03/20 [Rx] RX: Atorvastatin [Lipitor] 40 mg PO HS 11/03/20 [History] RX: Furosemide [Lasix] 40 mg PO DAILY 11/03/20 [History] RX: Lidocaine 5% Patch [Lidoderm 5% Patch] 1 patch TOPICAL DAILY PRN 11/03/20 [History] RX: Isosorbide Mononitrate ER [Imdur] 30 mg PO DAILY #30 tab.er.24h 11/05/20 [Rx] Follow up Appointment(s)/Referral(s): María Elena Nuñez MD [STAFF PHYSICIAN] - 1 Week (Office closed. Please call and make a follow up appointment. ) Maverick French DO [STAFF PHYSICIAN] - 2 Weeks (Office closed. Please call and make a follow-up appointment.) [facility],Clinic [Primary Care Provider] - 1-2 days (Office closed. Please call and make a follow-up appointment. ) Patient Instructions/Handouts: Syncope (DC), Weakness (DC), Hypertension (DC) Activity/Diet/Wound Care/Special Instructions: heart healthy diet activity is restricted till you see your doctor Discharge Disposition: HOME SELF-CARE
== END 2020-11-05 15:17 | disposition home or self-care (01) ==
LOC: EC 22:43 → 3SCARD 11-03 01:48
PROVIDERS: ADMIT Hospitalist; ATTEND Hospitalist
DX: R53.1 Weakness (principal); I16.0 Hypertensive urgency; I13.0 Hypertensive heart and chronic kidney disease with heart failure and stage 1 through stage 4 chronic kidney disease, or unspecified chronic kidney disease; I50.22 Chronic systolic (congestive) heart failure; N18.30 Chronic kidney disease, stage 3 unspecified; E11.22 Type 2 diabetes mellitus with diabetic chronic kidney disease; R79.89 Other specified abnormal findings of blood chemistry; J44.9 Chronic obstructive pulmonary disease, unspecified; K21.9 Gastro-esophageal reflux disease without esophagitis; R55 Syncope and collapse; E11.42 Type 2 diabetes mellitus with diabetic polyneuropathy; E86.0 Dehydration; I25.10 Atherosclerotic heart disease of native coronary artery without angina pectoris; I25.5 Ischemic cardiomyopathy; I73.9 Peripheral vascular disease, unspecified; I44.7 Left bundle-branch block, unspecified; I27.20 Pulmonary hypertension, unspecified; I08.1 Rheumatic disorders of both mitral and tricuspid valves; E78.5 Hyperlipidemia, unspecified; N40.0 Benign prostatic hyperplasia without lower urinary tract symptoms; I25.2 Old myocardial infarction; F17.200 Nicotine dependence, unspecified, uncomplicated; M47.812 Spondylosis without myelopathy or radiculopathy, cervical region; H91.90 Unspecified hearing loss, unspecified ear; R10.13 Epigastric pain; R11.2 Nausea with vomiting, unspecified; Z20.822 Contact with and (suspected) exposure to COVID-19; R51.9 Headache, unspecified; W01.198A Fall on same level from slipping, tripping and stumbling with subsequent striking against other object, initial encounter; Z79.51 Long term (current) use of inhaled steroids; Z79.82 Long term (current) use of aspirin; Z79.02 Long term (current) use of antithrombotics/antiplatelets; Z79.899 Other long term (current) drug therapy; Z91.048 Other nonmedicinal substance allergy status; Z86.73 Personal history of transient ischemic attack (TIA), and cerebral infarction without residual deficits; Z95.5 Presence of coronary angioplasty implant and graft; Z98.42 Cataract extraction status, left eye; Z98.41 Cataract extraction status, right eye; Z96.1 Presence of intraocular lens; Z98.890 Other specified postprocedural states; Z83.3 Family history of diabetes mellitus; Z83.6 Family history of other diseases of the respiratory system; Z81.1 Family history of alcohol abuse and dependence; Y92.009 Unspecified place in unspecified non-institutional (private) residence as the place of occurrence of the external cause
CPT/HCPCS: 96361 ×4; 96372 ×3; 96375 ×2; 96374; 99285; 36415; 93005; 93308; 82570; 80061; 80053; 80048 ×2; 84156; 82550; 83605; 83690; 83735; 84100; 84484 ×2; 85025; 85610; 85730; 81001; 87635; 71046; 72125; 70450; G0378 ×3; J0360; J2405; Q9950; J1644 ×3

== ENCOUNTER → 2021-05-30 | Outpatient (CLI) | payer OTHER, MEDICARE ==
--- NOTE | 2021-05-30 14:28 | US ---
EXAMINATION TYPE: US kidneys/renal and bladder DATE OF EXAM: 05/30/2021 COMPARISON: Kidney JULY 21, 2020 CLINICAL HISTORY: N18.30 CKD stage 3. CKD EXAM MEASUREMENTS: Right Kidney: 8.9 x 4.9 x 3.6 cm Left Kidney: 8.5 x 4.1 x 3.3 cm Right Kidney: echogenic, thin renal cortex. cystic area = 1.7 x 1.7 x 1.5cm Left Kidney: echogenic, thin renal cortex. cystic area = 1.1 x 1.1 x 0.9cm Bladder: appears wnl Bilateral Jets seen: NO There is increased cortical echogenicity bilaterally. There are scattered thin-walled cysts of varyin g size and shape bilaterally. No hydronephrosis is seen. The urinary bladder is satisfactorily dist ended. Lobulated contour is present. Bilateral ureteral jets are not seen. IMPRESSION: Evidence of chronic medical renal disease. No hydronephrosis seen bilaterally.
== END | disposition home or self-care (01) ==
LOC: RADUSWWP 13:51
PROVIDERS: ATTEND Internal Medicine Nephrology
DX: N18.32 Chronic kidney disease, stage 3b (principal)
CPT/HCPCS: 76770